=== PATIENT | male | born 1975 | race Caucasian/White ===

== ENCOUNTER 2023-04-24 19:04 | Emergency (ER) | payer MEDICARE, MEDICAID, SELFPAY ==
--- NOTE | 2023-04-24 19:08 | ED.ALLEREA ---
HPI - Allergic Reaction General Chief complaint: Eye Problems Stated complaint: Allergic Reaction Time Seen by Provider: 04/24/23 19:08 Source: patient Mode of arrival: ambulatory Limitations: no limitations History of Present Illness HPI narrative: 48-year-old male with a history of bipolar disorder, personality disorder, PTSD, constipation with a recurrent left periorbital inflammation since age 14 was recently started on Keflex for right leg cellulitis. The patient has been on Keflex since the 9th of this month. The patient presents to the ER with - left periorbital swelling. The periorbital swelling has completely covered the palpebral fissure. the patient has had this off and on since he was age 14. The patient thought that this might be an allergic reaction to Keflex. The patient does not have any rash or itching in any other part of the body. -- right lower leg cellulitis is improving patient has atopy and has allergic bronchitis and allergic rhinitis. MD complaint: other ( Left periorbital swelling along with rash in the periorbital region and on the nose) Onset (ago): unknown ( unsure when it started.) Symptoms: rash and facial swelling Severity: mild Treatment prior to arrival: none Review of Systems Review of Systems: All systems reviewed & are unremarkable except as noted in HPI and below Constitutional: Constitutional: Reports as per HPI and Reports no additional constitutional complaints Eyes: Eyes: Reports as per HPI and Reports no additional eye complaints Comments: Left periorbital swelling with rash on eyelids and the nose ENT: Reports system reviewed and no additional complaints, except as documented and Reports as per HPI Cardiovascular: Cardiovascular: Reports as per HPI and Reports no additional cardiovascular complaints Respiratory: Respiratory: Reports as per HPI and Reports no additional respiratory complaints Gastrointestinal: Gastrointestinal: Reports as per HPI and Reports no additional gastrointestinal complaints Genitourinary: Genitourinary: Reports no additional male genitourinary complaints and Reports as per HPI Musculoskeletal: Musculoskeletal: Reports no additional musculoskeletal complaints and Reports as per HPI Integumentary/Breasts: Skin/Breast: Reports system reviewed and no additional complaints, except as docu and Reports as per HPI Comments: rash in the left periorbital region and nose. Rash is not noted elsewhere. Neurologic: Reports system reviewed and no additional complaints, except as documented and Reports as per HPI Psychiatric: Psychiatric: Reports no additional psychiatric complaints and Reports as per HPI Endocrine: Endocrine: Reports no additional endocrine complaints and Reports as per HPI Hematologic/Lymphatic: Hematologic/Lymphatic: Reports no additional hematologic/lymphatic complaints and Reports as per HPI Allergic/Immunologic: Allergic/Immunologic: Reports no additional allergic/immunologic complaints and Reports as per HPI [facility] Past Medical History Medical History (Updated 04/24/23 @ 20:14 by Guillermo Cardenas MD) Bipolar 1 disorder Periorbital swelling Personality disorder PTSD (post-traumatic stress disorder) Exam Const: Orientation/consciousness: confusion Limitations: altered mental status HENMT: Head: normal to inspection Ears: external ears normal Face/Nose/Sinus: Normal external nose present ( erythematous rash on the nose) Face and sinus: normal facial exam ( left cheek and left periorbital swelling) Mouth: Yes Normal oral and palatal mucosa present Throat: posterior oropharynx normal Eyes: Conjunctivae: conjunctivae normal Pupils: Equal, round and reactive pupils present EOM: EOMs intact bilaterally Direct Ophthalmoscopy: no photophobia Other: left periorbital swelling occluding the palpebral fissure the left eye does not have any conjunctival erythema. Anterior chamber is clear. Normal eye movements.
[2023-04-24 19:10] VITALS: BP 140/71; PULSE 68; RESP 18; TEMP 36.8; O2SAT 99
[2023-04-24] MEDS: TETRACAINE HCL 0.5% OPHTH SOLN 4 ML BTL 1 DROP LEFT EYE (19:20)
[2023-04-24] MEDS: DOXYCYCLINE HYCLATE 100 MG TABLET PO (21:34)
[2023-04-24] MEDS: diphenhydrAMINE HCl CAP 25 MG CAPSULE PO (21:35)
[2023-04-24] MEDS: Please add drug allergy info to patient profile. 1 EACH XX (21:35)
[2023-04-24] MEDS: methylPREDNISolone SOD SUCC 125 MG VIAL IM (21:35)
[2023-04-24 21:40] VITALS: BP 122/72; PULSE 66; RESP 16; TEMP 36.7; O2SAT 99
== END 2023-04-24 21:55 | disposition home or self-care (01) ==
PROVIDERS: Emergency Provider Internal Medicine Critical Care Medicine; PCP Family Medicine
DX: L03.116 Cellulitis of left lower limb (principal); L03.115 Cellulitis of right lower limb; R22.0 Localized swelling, mass and lump, head
CPT/HCPCS: 96372; 99283; A9270; J2930

== ENCOUNTER 2023-07-15 08:52 | Outpatient (CLI) | payer MEDICARE, SELFPAY | END 2023-07-15 08:53 | disposition home or self-care (01) | LOC: CHSLAB 08:55 | PROVIDERS: PCP Family Medicine; Visit Provider Family Medicine | DX: D50.9 Iron deficiency anemia, unspecified (principal) | CPT/HCPCS: 36415; 82272 ==

== ENCOUNTER 2023-07-16 08:49 | Outpatient (NON) | payer MEDICARE, SELFPAY | END 2023-07-16 08:50 | disposition home or self-care (01) | LOC: CHSLAB 08:51 | PROVIDERS: Visit Provider Family Medicine | DX: D50.9 Iron deficiency anemia, unspecified (principal) | CPT/HCPCS: 36415; 82272 ==

== ENCOUNTER 2023-07-17 08:28 | Outpatient (NON) | payer MEDICARE, SELFPAY ==
[2023-07-17 08:58] LABS: Appearance Urine Clear (Clear); Bilirubin Urine Negative (Negative); Blood Urine Negative (Negative); Color Urine Light Yellow (Yellow); Glucose Urine UA Negative (Negative); Ketones Urine Negative (Negative); Leukocyte Esterase Ur Negative (Negative); Nitrate Urine Negative (Negative); Protein Urine Negative (Negative); Urobilinogen Urine 0.2 mg/dL (0.2-1.0); pH Urine 5.5 (5.0-8.0)
[2023-07-17 09:02] LABS: Add Urine Microscopic? NO
[2023-07-17 09:05] LABS: Creatinine Urine 34.78 mg/dL (40-278)
[2023-07-17 09:17] LABS: MALB Creatinine Ratio 37.3 mg/g (0-30); Microalbumin Urine Random < 13.0 mg/L
== END 2023-07-17 08:29 | disposition home or self-care (01) ==
LOC: CHSLAB 08:29
PROVIDERS: Visit Provider Family Medicine
DX: D50.9 Iron deficiency anemia, unspecified (principal)
CPT/HCPCS: 36415; 81003; 82043; 82272

== ENCOUNTER 2023-08-31 07:15 | Outpatient (CLI) | payer MEDICARE, SELFPAY ==
[2023-08-31 08:01] LABS: Basophils Absolute Auto 0.01 K/mm3 (0.00-0.10); Basophils Percent Auto 0.2 % (0.0-1.0); Hematocrit 37.3 % (40.0-54.0); Hemoglobin 11.9 g/dL (14.0-18.0); Immature Granulocyte Absolute 0.06 K/mm3 (0.00-0.00); Immature Granulocyte Percent A 1.1 % (0.0-0.0); Lymphocytes Absolute Auto 0.74 K/mm3 (1.10-4.50); Lymphocytes Percent Auto 13.9 % (18.0-42.0); Mean Corpuscular HGB Conc 31.9 g/dL (32-36); Mean Corpuscular Hemoglobin 25.6 pg (27.0-31.0); Mean Corpuscular Volume 80.4 fL (78.0-102.0); Mean Platelet Volume 12.2 fl (8.7-11.0); Monocytes Absolute Auto 0.33 K/mm3 (0.10-0.90); Monocytes Percent Auto 6.2 % (2.0-11.0); Neutrophils Absolute Auto 4.17 K/mm3 (1.70-7.20); Neutrophils Percent Auto 78.6 % (50.0-70.0); Platelet Count Result 103 K/mm3 (150-420); Red Blood Count 4.64 M/mm3 (4.70-6.10); Red Cell Distribution Width 15.2 % (11.6-14.4); White Blood Count 5.3 K/mm3 (4.8-10.8)
[2023-08-31 08:19] LABS: Iron 58 ug/dL (65-175); Percent Iron Saturation 24 % (12-57)
== END 2023-08-31 07:16 | disposition home or self-care (01) ==
LOC: CHSLAB 07:20
PROVIDERS: PCP Family Medicine; Visit Provider Family Medicine
DX: D50.9 Iron deficiency anemia, unspecified (principal)
CPT/HCPCS: 36415; 83540; 83550; 85025

== ENCOUNTER 2024-06-08 11:05 | Outpatient (CLI) | payer MEDICARE, MEDICAID, SELFPAY ==
--- NOTE | ~2024-06-08 | XR_ITS ---
XR foot LT min 3V Ordering provider: Reggie Jones MD History: . KICKED BEDPOST X1WK AGO,PAIN THRU 1ST,H/O MRSA X2YR AGO TOP . Comparison: None. FINDINGS: BONES: Erosive area seen in the distal metaphysis of the proximal phalanx of the big toe. Possibility of osteomyelitis or gout is marked excluded. Cystic area also seen in the proximal metaphysis of the proximal phalanx of the middle toe. Erosive changes also seen in the distal phalanx of the little to e. Possible effusion in the first interphalangeal joint is not noted. JOINT SPACES: Normal. No tarsal coalition. SOFT TISSUES: Normal. IMPRESSION: No definite acute osseous abnormality left foot. Multiple erosive changes which is highly suggestive of gout. Clinical correlation and further evaluat ion advised. Reviewed, dictated and finalized at location A. CAL STORE MANAGER IMPRESSION: No definite acute osseous abnormality left foot. Multiple erosive changes which is highly suggestive of gout. Clinical correlati on and further evaluation advised.
== END 2024-06-08 11:06 | disposition home or self-care (01) ==
LOC: CHSIMG 11:06
PROVIDERS: PCP Family Medicine; Visit Provider Family Medicine
DX: M79.675 Pain in left toe(s) (principal); M89.9 Disorder of bone, unspecified
CPT/HCPCS: 73630

== ENCOUNTER 2024-06-26 09:24 | Outpatient (CLI) | payer MEDICARE, MEDICAID, SELFPAY ==
[2024-06-28 03:23] LABS: Hepatitis A Antibody IgM NON-REACTIVE (NON-REACTIVE); Hepatitis B Core Antibody NON-REACTIVE (NON-REACTIVE)
[2024-06-28 03:38] LABS: Hepatitis B Surface Antigen NON-REACTIVE (NON-REACTIVE); Hepatitis C Virus Antibody NON-REACTIVE (NON-REACTIVE)
== END 2024-06-26 09:25 | disposition home or self-care (01) ==
LOC: CHSLAB 09:27
PROVIDERS: PCP Family Medicine; Visit Provider Family Medicine
DX: D75.9 Disease of blood and blood-forming organs, unspecified (principal); R10.9 Unspecified abdominal pain
CPT/HCPCS: 36415; 80074

== ENCOUNTER 2024-07-15 11:30 | Outpatient (CLI) | payer MEDICARE, MEDICAID, SELFPAY ==
--- NOTE | ~2024-07-15 | XR_ITS ---
HISTORY: unspec. open wound left foot base of great toe COMPARISON: 06/08/2024 TECHNIQUE: 3 views of the left foot were performed. FINDINGS: No acute fracture or dislocation is appreciated. Erosion and ankylosis within the proximal, mid and distal phalanx of the great toe. Query prior injury. The cortex of the bones of the great toe are maintained. Periarticular osteopenia suggesting osteoarthritis. Soft tissue swelling along the dorsum and plantar surface of the forefoot. The base of the fifth metatarsal is intact. No calcaneal spur is noted. IMPRESSION: Erosion and ankylosis within the proximal, mid and distal phalanx of the great toe for w hich prior injury is suspected. Soft tissue swelling, without underlying fracture. Reviewed, dictated and finalized at location A. LING TEACHER IMPRESSION: Erosion and ankylosis within the proximal, mid and distal phalanx of the great toe for which prior injury is suspected. Soft tissue swelling, without underlying fracture.
[2024-07-15 12:01] LABS: Basophils Absolute Auto 0.01 K/mm3 (0.00-0.10); Basophils Percent Auto 0.1 % (0.0-1.0); Eosinophils Absolute Auto 0.09 K/mm3 (0.02-0.50); Eosinophils Percent Auto 1.1 % (1.0-6.0); Hematocrit 39.4 % (40.0-54.0); Hemoglobin 12.7 g/dL (14.0-18.0); Immature Granulocyte Absolute 0.06 K/mm3 (0.00-0.00); Immature Granulocyte Percent A 0.7 % (0.0-0.0); Lymphocytes Absolute Auto 1.23 K/mm3 (1.10-4.50); Lymphocytes Percent Auto 14.7 % (18.0-42.0); Mean Corpuscular HGB Conc 32.2 g/dL (32-36); Mean Corpuscular Hemoglobin 27.2 pg (27.0-31.0); Mean Corpuscular Volume 84.4 fL (78.0-102.0); Mean Platelet Volume 11.2 fl (8.7-11.0); Monocytes Absolute Auto 0.47 K/mm3 (0.10-0.90); Monocytes Percent Auto 5.6 % (2.0-11.0); Neutrophils Absolute Auto 6.53 K/mm3 (1.70-7.20); Neutrophils Percent Auto 77.8 % (50.0-70.0); Platelet Count Result 104 K/mm3 (150-420); Red Blood Count 4.67 M/mm3 (4.70-6.10); Red Cell Distribution Width 15.3 % (11.6-14.4); White Blood Count 8.4 K/mm3 (4.8-10.8)
[2024-07-15 12:36] LABS: Alanine Aminotransferase 12 U/L (16-63); Albumin Level 3.8 g/dL (3.4-5.0); Alkaline Phosphatase 107 U/L (46-116); Anion Gap 8 mmol/L (4-12); Aspartate Amino Transferase 13 U/L (15-37); Bilirubin,Total 0.9 mg/dL (0.00-1.00); Blood Urea Nitrogen 13 mg/dL (7-18); Calcium 6.5 mg/dL (8.5-10.1); Carbon Dioxide 28 mmol/L (21-32); Chloride 104 mmol/L (98-108); Estimated Glomerular Filt Rate > 60; Glucose 107 mg/dL (70-99); Osmolality Calculated 290 mOsm/kg (285-295); Potassium 3.7 mmol/L (3.5-5.1); Sodium 140 mmol/L (136-145); Total Protein 7.4 g/dL (6.4-8.2)
--- OUTSIDE RECORDS SUMMARY | 2024-07-15 13:05 | XMS_ITS | Clinical Summary ---
Author Organization [facility] Address [facility] [place] [address] Care Team Providers Care Synchronous Motor Assembler Name Role Phone Alex Andino MD Primary Care Provider [phone] Social History Tobacco Use Types Packs/Day Years Used Date Smoking Tobacco: Never Assessed Sex and Gender Information Value Date Recorded Sex Assigned at Not on file Legal Sex Male 8:01 AM CDT Gender Identity Not on file Sexual Orientation Not on file Plan of Treatment Health Maintenance Due Date Last Done Comments Colorectal Cancer Screening Colonoscopy (10 Years) 1975 Annual Physical 1978 Hepatitis C 1993 Hepatitis B Vaccines (1 of 3 - 19+ 3-dose series) 1994 DTaP, Tdap and Td Vaccines (2 - Td or Tdap) 02/08/2020 02/07/2010 COVID-19 Vaccine ( season) 2024 01/05/2022, 06/12/2021, 07/14/2020, Additional history exists Influenza Adult (#1) 2024 04/18/2023, 02/28/2023, 03/10/2021, Additional history exists Pneumococcal Vaccine: Pediatrics (0 to 5 Years) and At-Risk Patients (6 to 64 Years) Aged Out 02/28/2023 No longer eligible based on patient's age to complete this topic Meningococcal B Vaccine Aged Out No l onger eligible based on patient's age to complete this topic Meningococcal Vaccine Aged Out No keena hardeep eligible based on patient's age to complete this topic RSV Immunizations Under 20 Months Aged Out No longer eligible based on patient's age to complete this topic Insurance MEDICARE MEDICAID Care Teams Synchronous Motor Assembler Relationship Specialty Start Date End Date Alex Andino MD [address] [place] [id number] PCP - General FAMILY PRACTICE 09/02/23
--- OUTSIDE RECORDS SUMMARY | 2024-07-15 13:05 | XMS_ITS | Continuity of Care Document ---
Author Organization [facility] Address [address] [place] [address] Phone Care Team Providers Care Demurrage Agent Name Role Phone Federico Salazar MD Unavailable Unavailable Allergies, Adverse Reactions, Alerts Substance Reaction Status Criticality bee venom protein (honey bee) Active No Information trimethoprim Active No Information sulfamethoxazole Active No Informat ion PENICILLIN Active No Information Medications Medication Instructions Dosage Effective Dates (start - stop) Status Comments loratadine 10 mg tablet take 1 tablet by oral route every day 10 MG - Active fluticasone propionate 50 mcg/actuation nasal spray,suspension spray 2 spray by intranasal route 1-2 times every day in each nostril as needed - Active levothyroxine 200 mcg tablet take 1 tablet by oral route every day 200 MCG - Active FOLIC ACID 1MG...AUTO GIVE ONE TABLET BY MOUTH DAILY - Active Stool Softener 100 mg tablet take 1 tablet by oral route every day at bedtime as needed 100 MG - Active VITAMIN D [id number]... GIVE 1 CAPSULE BY MOUTH WEEKLY (EVERY 7 DAYS) - Active buspirone 10 mg tablet take 1 tablet by oral route 2 times every day 10 MG - Active aripiprazole 10 mg tablet take 1 tablet by oral route every day 10 MG - Active citalopram 20 mg tablet take 1 tablet by oral route every day 20 MG - Active B-12 Compliance 1,000 mcg/mL injection kit inject 1 milliliter by subcutaneous route every month on the - Active Ciprodex 0.3 %-0.1 % ear drops,suspension instill 4 drop by otic route 2 times every day for 7 days into affected ear(s) as needed - Active mupirocin 2 % topical ointment apply to the affected area BID PRN as needed - Active Procedures Procedure Date DOMICIL/R-HOME VISIT [place] OFFICE/OUTPATIENT VISIT, EST OFFICE/OUTPATIENT VISIT, EST Advance Directives Directive Yes / No Effective Date File Name No Information Encounters Encounter Description Practice Location Reason(s) For Visit Diagnoses Date Provider Providers Copied on Encounter DOMICIL/R-HO ME VISIT EST [facility], [address] [place] [address], [facility], tel: [phone] [facility] HPI (chief complaint) Type 2 diabetes mellitus without complicationsHypo thyroidism, unspecifiedDefici ency of other specified B group vitaminsSchizophr enia, unspecifiedMajor depressive disorder, recurrent, unspecified 2 Marie Caballero. [address] [place] [address], [facility], . tel: [phone] OFFICE/OUTPA TIENT VISIT, [facility], [address] [place] [address], [facility], tel: [phone] [facility] PRE-OP PHYSICAL (chief complaint) HPI (chief complaint) Benign neoplasm of other specified sitesType 2 diabetes mellitus without complications 2 Marie Caballero. [address] [place] [address], [facility], [place]. tel: [phone] [facility], [address] [place] [address], [facility], [place] tel: [phone] [place] No Information 2 Marie Caballero. [address] [place] [address], [facility], [place]. tel: [phone] OFFICE/OUTPA TIENT VISIT, [facility], [address] [place] [address], [facility], [place] tel: [phone] [place] knot on R foot (chief complaint) HPI (chief complaint) Tinea unguiumBenign neoplasm of other specified sites 2 Marie Caballero. [address] [place] [address], [facility], [place]. tel: [phone] [facility], [address] [place] [address], [facility], tel:[phone] [place] [address] No Information 2 Marie Caballero. [address] [place] [address], [facility], . tel: [phone] [facility], [address] [place] [address], [facility], tel:[phone] [place] [address] No Information 2 Poncho Herringl. [address] [place], [place], [facility], [place]. tel: [phone] [facility], [address] [place] [address], [facility], tel:[phone] [place] [address] No Information 2 Marie Caballero. [address] [place] [address], [facility], [place]. tel: [phone] [facility], [address] [place] [address], [facility], [place] tel:[phone] [place] [address] No Information 2 Marie Caballero. [address] [place] [address], [facility], [place]. tel: [phone] [facility], [address] [place] [address], [facility], tel:[phone] [place] [address] 6 Month Follow Up at [facility] care (chief complaint) Hypothyroidism, unspecifiedType 2 diabetes mellitus without complicationsDefi ciency of other specified B group vitaminsSchizophr enia, unspecifiedMajor depressive disorder, recurrent, unspecified 2 Marie Caballero. [address] [place] [address], [facility], [place]. tel: [phone] [facility], [address] [place] [address], [facility], tel:[phone] [place] [address] No Information 1 Marie Caballero. [address] [place] [address], [facility], . tel: [phone] [facility], [address] [place] [address], [facility], tel:[phone] [place] No Information Marie Caballero. [address] [place] [address], [facility], . tel: [phone] Family History Family Member Type Diagnosis Age At Onset No Information Immunizations Vaccine Date Status Comments SARS-COV-2 (COVID-19) vaccin e, mRNA, spike protein, LNP, preservative free, 100 mcg/0.5mL dose administered Source: Source Unspe cified SARS-COV-2 (COVID-19) vaccin e, mRNA, spike protein, LNP, preservative free, 100 mcg/0.5mL dose administered Source: Source Unspe cified Influenza injectable quad administered Source: Source Unspe cified Payers Payer name Insurance type Covered democrat ID Authoriza tion(s) No Information Social History Type Description Quantity Date Captured Comments Alcohol Use Details Unknown Caffeine Use Details Unknown Tobacco Use Status No Information Smoking Status No Information Sex Male Vital Signs Date / Time: Height Weight BMI Pulse Rate Blood Pressure Temperature Respiratory Rate Body Surface Area Head Circumference Head Circ. Percentile Wt./Juancarlos. Percentile BMI percentile Pulse Ox Inhaled Ox 12:31 PM 83.461 kg (184.00 lbs) 80 /min 126/64 mm[Hg] 98.60 F 16 /min Chief Complaint And Reason For Visit From encounter dated '12/28/2021 11:15'. HPI (chief complaint). Description: No new concerns or complaints from patient or staff.Eating and sleeping well.Medication list reviewedFoot is doing well. No pain just some itching. He is to have stitches out in 1 week. No drainage. Reason For Referral Reason For Referral No Information Plan Of Treatment Date Type Action Status Referral Referred To: Lizbeth Ramos [address] [place], [place], [phone] Ordered: Referrals: Podiatric Medicine & Surgery Service Providers : Medical And Health Services Manager. Lizbeth Ramos. Evaluate and treat Appointment date/timeframe: 12/01/2021 ordered Future Order: Lab Order CMP ([id number]), Se nt on: Sent Future Order: Lab Order CBC W/ D iff ([id number]), Sent on: Sent Future Order: Lab Order A1C ([id number]), Se nt on: Sent Future Order: Lab Order LIPID PA DAVION ([id number]), Sent on: Sent Future Order: Lab Order VITAMIN D (25) ([id number]), Sent on: Sent Future Order: Lab Order TSH REFL EX FREE T4 ([id number]), Sent on: Sent History Of Present Illness Encounter Date Complaint History Of Prese nt Illness HPI No new concerns or complaints from patient or staff.Eating and sleeping well.Medication list reviewedFoot is doing well. No pain just some itching. He is to have stitches out in 1 week. No drainage. PRE-OP PHYSICAL Patient presents to clinic for pre-op physical. HPI Patient to have surgery on his foot to remove the mass and biopsy it. Surgery has not been scheduled yet.Patient has no new concerns or complaints today. No fevers or chills. No chest pain or shortness of breath. No cough or sputum production. No urinary complaints.Diabetes been under good control. His last A1c was 4.9% in June 2020. HPI Patient is here to check an area on his right foot. He has chronic problems with both of his feet. He has terrible looking toenails and the nail on the right great toe is broken. He stated his feet sweat a lot and he has peeling skin on the soles of both feet.He is recently noticed a fluid-filled mass on the outer aspect of his right foot. There is been no redness or warmth. No drainage. No tenderness. He has noticed his shoes will rub in that area. [facility] staff states that he changed his shoes frequently. knot on R foot The symptoms beg an 2 weeks ago. Patient states that he noticed a knot on the side of his R foot. Describes that the area rubs against the inside of his shoe, denies any pain to the area. Denies any use of medication for the area. 6 Month Follow Up at [facility] car e Pt. is doing well.No new concerns or complaints by the patient or staffEating well. Sleeping well. Functional Status Date Functional Assessmen t No Information Instructions Date Instruction Additional Infor chandu Continue current med ications and treatment plan Related to Type 2 diabetes mellitus without complications Patient is medically cleared for surgery Related to Benign neoplasm of other specified sites Will refer to Podiatry in [place] Related to Tinea unguium Continue current med icationsLabs: CMP, CBC, hgbA1c, TSH, Vit D, B12, LipidsFollow up 6 months, sooner as neededFollow up with mental health services as scheduled Related to Hypothyroidism, unspecified Assessments Type Assessment Date assessment Type 2 diabetes mellitus without complications assessment Hypothyroidism, unspecified assessment Deficiency of other specified B group vitamins assessment Schizophrenia, unspecified assessment Major depressive disorder, recur rent, unspecified Patient Care Teams Name Effective Dates (start - stop) Status Members No Information
[2024-07-15 13:06] LABS: Erythrocyte Sedimentation Rate 43 mm/hr (0-15)
== END 2024-07-15 11:31 | disposition home or self-care (01) ==
PROVIDERS: PCP Family Medicine; Visit Provider Family Medicine
DX: E83.51 Hypocalcemia (principal); S91.302A Unspecified open wound, left foot, initial encounter; E11.9 Type 2 diabetes mellitus without complications; M79.89 Other specified soft tissue disorders
CPT/HCPCS: 36415; 73630; 80053; 82306; 82330; 85025; 85652

== ENCOUNTER 2024-07-16 08:30 | Outpatient (CLI) | payer MEDICARE, MEDICAID, SELFPAY ==
--- NOTE | ~2024-07-16 | US_ITS ---
US arterial ankle brachial ind INDICATION: Peripheral vascular disease TECHNIQUE: Segmental pressures and plethysmographic and Doppler waveforms of the brachial and lower e xtremity arteries were obtained. COMPARISON: None. FINDINGS: Right and left brachial artery pressures of 1:15 mm Hg and 110 mm Hg, respectively, are concordant (n ormal difference <= 30 mmHg). The right ankle-brachial index (CORNELIO) is 1.48 (normal >= 0.9-1.0). The right great toe-brachial index (TBI) is 1 (normal >= 0.60). The left CORNELIO is 1.52. The left TBI is 1.2. IMPRESSION: 1. Normal bilateral ankle-brachial indices. Reviewed, dictated and finalized at location B. T SUPERVISOR
--- OUTSIDE RECORDS SUMMARY | 2024-07-16 08:36 | XMS_ITS | Continuity of Care Document ---
Author Organization [facility] Address [address] [place] [address] Phone Care Team Providers Care Cafe Manager Name Role Phone Federico Salazar MD Unavailable [...] needed 100 MG - Active VITAMIN D [id number]... GIVE 1 CAPSULE BY MOUTH WEEKLY (EVERY [...] Copied on Encounter DOMICIL/R-HO ME VISIT EST [facility], [address] [place] [address], [facility], tel: [phone] [facility] HPI (chief complaint) Type 2 diabetes mellitus without complicationsHypo thyroidism, unspecifiedDefici ency of other specified B group vitaminsSchizophr enia, unspecifiedMajor depressive disorder, recurrent, unspecified 2 Marie Caballero. [address] [place] [address], [facility], . tel: [phone] OFFICE/OUTPA TIENT VISIT, [facility], [address] [place] [address], [facility], tel: [phone] [facility] PRE-OP PHYSICAL (chief complaint) HPI (chief complaint) Benign neoplasm of other specified sitesType 2 diabetes mellitus without complications 2 Marie Caballero. [address] [place] [address], [facility], [place]. tel: [phone] [facility], [address] [place] [address], [facility], [place] tel: [phone] [place] No Information 2 Marie Caballero. [address] [place] [address], [facility], [place]. tel: [phone] OFFICE/OUTPA TIENT VISIT, [facility], [address] [place] [address], [facility], [place] tel: [phone] [place] knot on R foot (chief complaint) HPI (chief complaint) Tinea unguiumBenign neoplasm of other specified sites 2 Marie Caballero. [address] [place] [address], [facility], [place]. tel: [phone] [facility], [address] [place] [address], [facility], tel:[phone] [place] [address] No Information 2 Marie Caballero. [address] [place] [address], [facility], . tel: [phone] [facility], [address] [place] [address], [facility], tel:[phone] [place] [address] No Information 2 Poncho Herringl. [address] [place], [place], [facility], [place]. tel: [phone] [facility], [address] [place] [address], [facility], tel:[phone] [place] [address] No Information 2 Marie Caballero. [address] [place] [address], [facility], [place]. tel: [phone] [facility], [address] [place] [address], [facility], [place] tel:[phone] [place] [address] No Information 2 Marie Caballero. [address] [place] [address], [facility], [place]. tel: [phone] [facility], [address] [place] [address], [facility], tel:[phone] [place] [address] 6 Month Follow Up at [facility] care (chief complaint) Hypothyroidism, unspecifiedType 2 diabetes mellitus without complicationsDefi ciency of other specified B group vitaminsSchizophr enia, unspecifiedMajor depressive disorder, recurrent, unspecified 2 Marie Caballero. [address] [place] [address], [facility], [place]. tel: [phone] [facility], [address] [place] [address], [facility], tel:[phone] [place] [address] No Information 1 Marie Caballero. [address] [place] [address], [facility], . tel: [phone] [facility], [address] [place] [address], [facility], tel:[phone] [place] No Information Marie Caballero. [address] [place] [address], [facility], . tel: [phone] Family History Family Member Type Diagnosis Age [...] Status Referral Referred To: Lizbeth Ramos [address] [place], [place], [phone] Ordered: Referrals: Podiatric Medicine & Surgery Service Providers : Negative Cleaner. Lizbeth Ramos. Evaluate and treat Appointment date/timeframe: 12/01/2021 ordered Future Order: Lab Order CMP ([id number]), Se nt on: Sent Future Order: Lab Order CBC W/ D iff ([id number]), Sent on: Sent Future Order: Lab Order A1C ([id number]), Se nt on: Sent Future Order: Lab Order LIPID PA DAVION ([id number]), Sent on: Sent Future Order: Lab Order VITAMIN D (25) ([id number]), Sent on: Sent Future Order: Lab Order TSH REFL EX FREE T4 ([id number]), Sent on: Sent History Of Present Illness [...] the area. 6 Month Follow Up at [facility] car e Pt. is doing well.No new [...] specified sites Will refer to Podiatry in [place] Related to Tinea unguium Continue current med [...]
--- OUTSIDE RECORDS SUMMARY | 2024-07-16 08:36 | XMS_ITS | Clinical Summary ---
Author Organization [facility] Address [facility] [place] [address] Care Team Providers Care Restaurant General Manager Name Role Phone Alex Andino MD Primary Care Provider [phone] Social History Tobacco Use Types Packs/Day Years Used Date Smoking Tobacco: Never Assessed Sex and Gender Information Value Date Recorded Sex Assigned at Male 07/15/2024 3:35 PM MEDICAL ADMINISTRATIVE Legal Sex Male 8:01 AM CDT Gender Identity Not on file Sexual Orientation Not on file Plan of Treatment Upcoming Encounters Date Type Department Care Team (Late st Contact Info) Description 07/20/2024 2:45 PM MEDICAL ADMINISTRATIVE Appointment [facility] [address] [place] [address] Carlene Lofton, [facility] [address] [place] [address] Health Maintenance Due Date Last Done Comments [...] this topic Insurance MEDICARE MEDICAID Care Teams Restaurant General Manager Relationship Specialty Start Date End Date Alex Andino MD [address] [place] [id number] PCP - General FAMILY PRACTICE 09/02/23
== END 2024-07-16 08:31 | disposition home or self-care (01) ==
LOC: CHSIMG 08:32
PROVIDERS: PCP Family Medicine; Visit Provider Family Medicine
DX: I73.9 Peripheral vascular disease, unspecified (principal); S91.302A Unspecified open wound, left foot, initial encounter
CPT/HCPCS: 93922

== ENCOUNTER 2024-11-29 10:18 | Emergency (ER) | payer MEDICARE, MEDICAID, SELFPAY ==
--- NOTE | ~2024-11-29 | XR_ITS ---
Left foot Technique: AP, oblique, and lateral views were obtained. Clinical History: Injury, diabetic wound COMPARISON: 07/15/2024 Findings: No acute fracture or dislocation is seen. Status post interval amputation of the second dig it at the level of the midportion of the middle phalanx. There is dorsal dislocation at the fourth PI P joint. No definite acute fracture seen. Stable chronic changes at the first toe interphalangeal veronica nt. Soft tissues are unremarkable. Impression: Dorsal dislocation of the fourth PIP joint. No fracture evident. Interval amputation of the second digit at the level of the middle portion of the middle phalanx, as detailed above. Stable chronic changes about the first toe interphalangeal joint. Reviewed, dictated and finalized at location M. Impression: Dorsal dislocation of the fourth PIP joint. No fracture evident. Interval amputation of the second digit at the level of the middle portion of t he middle phalanx, as detailed above. Stable chronic changes about the first toe interphalangeal joint.
[2024-11-29 10:19] VITALS: BP 145/92; PULSE 80; RESP 18; TEMP 36.6; O2SAT 97
--- NOTE | 2024-11-29 10:28 | ED_ITS ---
HPI - General Adult General Chief complaint: Extremity Injury, Lower Stated complaint: left foot pain Time Seen by Provider: 11/29/24 10:19 History of Present Illness HPI narrative: Ramon is a 49m with a PMH of diabetes that presented to the ED from [facility]. He Rolled his ankle and h as pain on the medial malleoleus. He also has had a non-healing wound on the medial side of the 4th toe. No fevers, chills, N/V or systemic symptoms. Related Data Allergies Allergy/AdvReac Type Severity Reaction Status Date / Time bee venom protein (honey bee) Allergy Unknown Verified 11/29/24 10:33 Penicillins Allergy Unknown Verified 11/29/24 10:33 Sulfa (Sulfonamide Allergy Unknown Verified 11/29/24 10:33 Antibiotics) sulfamethoxazole (From Allergy Unknown Verified 11/29/24 10:33 Bactrim) trimethoprim (From Bactrim) Allergy Unknown Verified 11/29/24 10:33 Review of Systems Review of Systems: All systems reviewed & are unremarkable except as noted in HPI and below PMFSH Past Medical History Medical History Periorbital swelling PTSD (post-traumatic stress disorder) Personality disorder Bipolar 1 disorder Exam Const: General: cooperative, healthy appearing, comfortable, no acute distress, well developed, alert, awake and Physically active Orientation/consciousness: oriented to person, oriented to place and oriented to time HENMT: Head: normal to inspection, normocephalic and atraumatic Ears: hearing grossly normal bilaterally and external ears normal Face/Nose/Sinus: Normal external nose present Eyes: General: appearance normal, both eyes and all related structures Periorbital: periorbital findings normal Sclera: sclerae normal Pupils: Equal, round and reactive pupils present Neck: Neck: normal visual inspection Chest: Chest palpation & inspection: normal inspection of the chest Resp: Effort & Inspection: normal respiratory effort, able to speak in complete sentences and no respiratory distress Cardio: Jugular venous distension: no JVD Skin: General skin exam: normal color and no rashes or lesions noted Neuro: General: oriented to person, oriented to place and oriented to time Cranial nerves: Yes Equal, round and reactive pupils present Extrem: General: normal to inspection Other: left ankle was swollen and TTP on the medial side. 1cm round wound on the medial side of the 4th digit Course Course Emergency Course: Given Tylenol for pain and ordered radiographs Technique: AP, oblique, and lateral views were obtained. Clinical History: Injury, diabetic wound COMPARISON: 07/15/2024 Findings: No acute fracture or dislocation is seen. Status post interval amputation of the second digit at the level of the midportion of the middle phalanx. There is dorsal dislocation at the fourth PIP joint. No definite acute fracture seen. Stable chronic changes at the first toe interphalangeal joint. Soft tissues are unremarkable. Impression: Dorsal dislocation of the fourth PIP joint. No fracture evident. Interval amputation of the second digit at the level of the middle portion of the middle phalanx, as detailed above. Stable chronic changes about the first toe interphalangeal joint. After the radiograph results I discussed the dislocated toe. He states that it has always been that way. I asked him if he wanted anything done and he refused treatment. Vital Signs Vital signs: Vital Signs Temperature 97.9 F 11/29/24 10:19 Pulse Rate 80 11/29/24 10:19 Respiratory Rate 18 11/29/24 10:19 Blood Pressure 145/92 H 11/29/24 10:19 Pulse Oximetry 97 11/29/24 10:19 Oxygen Delivery Room Air 11/29/24 10:19 Temperature 97.9 F 11/29/24 10:19 Pulse Rate 80 11/29/24 10:19 Respiratory Rate 18 11/29/24 10:19 Blood Pressure 145/92 H 11/29/24 10:19 Pulse Oximetry 97 11/29/24 10:19 Oxygen Delivery Room Air 11/29/24 10:19 Medical Decision Making Vital Signs Vital Signs: Vital Signs Temperature 97.9 F 11/29/24 10:19 Pulse Rate 80 11/29/24 10:19 Respiratory Rate 18 11/29/24 10:19 Blood Pressure 145/92 H 11/29/24 10:19 Pulse Oximetry 97 11/29/24 10:19 Oxygen Delivery Room Air 11/29/24 10:19 Temperature 97.9 F 11/29/24 10:19 Pulse Rate 80 11/29/24 10:19 Respiratory Rate 18 11/29/24 10:19 Blood Pressure 145/92 H 11/29/24 10:19 Pulse Oximetry 97 11/29/24 10:19 Oxygen Delivery Room Air 11/29/24 10:19 Discharge Plan Discharge Clinical Impression: Ankle sprain and strain Patient Disposition: Home Condition: Stable Instructions: Ankle Sprain (ED) Patient Language: Rwandan Prescriptions: No Action doxycycline hyclate 100 mg capsule 100 mg PO BID Qty: 14 0RF prednisone 20 mg tablet 20 mg PO BID Qty: 10 0RF prednisone 20 mg tablet 20 mg PO BID Qty: 10 0RF doxycycline hyclate 100 mg tablet 100 mg PO BID Qty: 14 0RF Follow-up/Referrals: Reggie Jones MD [Primary Care Provider] -
[2024-11-29] MEDS: ACETAMINOPHEN 500 MG TABLET 1000 MG PO (10:37)
[2024-11-29 11:37] VITALS: BP 139/70; PULSE 79; RESP 16; O2SAT 98
== END 2024-11-29 11:37 | disposition home or self-care (01) ==
PROVIDERS: Emergency Provider Family Medicine; PCP Family Medicine
DX: S93.402A Sprain of unspecified ligament of left ankle, initial encounter (principal); S96.912A Strain of unspecified muscle and tendon at ankle and foot level, left foot, initial encounter; E11.9 Type 2 diabetes mellitus without complications; X50.0XXA Overexertion from strenuous movement or load, initial encounter
CPT/HCPCS: 73630; 99283; A9270

== ENCOUNTER 2024-12-28 11:33 | Emergency (ER) | payer MEDICARE, MEDICAID, SELFPAY ==
--- NOTE | ~2024-12-28 | XR_ITS ---
EXAM/ PROCEDURE: XR foot LT min 3V - 12/28/2024 11:50 CDT HISTORY: 49 years old Male with infection/dm2 COMPARISON: 11/29/2024 TECHNIQUE: Four view(s) FINDINGS/ IMPRESSION: Multiple areas of cortical destruction in the fourth proximal and middle phalanx which can be seen in osteomyelitis. Clinical correlation is recommended. No acute fracture or dislocation seen. Status post amputation of second digit at the level of midport ion of middle phalanx. 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 Chronic degenerative change s. Reviewed, dictated and finalized at location A.
[2024-12-28 11:33] VITALS: BP 147/80; PULSE 89; RESP 18; TEMP 36.6; O2SAT 97
--- OUTSIDE RECORDS SUMMARY | 2024-12-28 11:42 | XMS_ITS | Clinical Summary ---
Author Organization [facility] [address] Address [address] [place] [address] Care Team Providers Care Optometry Professor Name Role Phone Reggie Jones MD Primary Care Provide r Demarcus Phan DPM Unavailable [phone] Allergies Active Allergy Reactions Criticality Noted Date Comments Sulfamethoxazole-Trimethoprim Hives Medium 2024 Penicillins Hives Medium 08/20/2024 Sulfa Hives Medium 08/20/2024 Venom-Honey Bee Unknown 01/03/2016 Medications ARIPiprazole (ABILIFY) 10 mg tablet Take 1 tablet (10 mg total) by mouth daily 08/03/19 25 Active citalopram (CeleXA) 20 mg tablet Take 1 tablet (20 mg total) by mouth daily 08/03/19 25 Active levothyroxine (SYNTHROID) 175 mcg tablet Take 1 tablet (175 mcg total) by mouth daily 08/03/19 25 Active terbinafine (LamiSIL) 250 mg tablet Take 1 tablet (250 mg total) by mouth daily 08/03/19 25 Active busPIRone (BUSPAR) 10 mg tablet Take 1 tablet (10 mg total) by mouth 2 (two) times a day 08/03/19 25 Active fluticasone propionate (FLONASE) 50 mcg/actuation nasal spray Administer 1 spray into each nostril 2 (two) times a day 07/11/19 25 Active Nystop powder Apply 1 Application topically 2 (two) times a day 07/28/19 25 Active ferrous sulfate 325 mg (65 mg of elemental iron) tabletIndications :Iron Deficiency Anemia Take 1 tablet (65 mg of elemental iron total) by mouth daily with breakfast Active acetaminophen (TYLENOL) 325 mg tablet Take 2 tablets (650 mg total) by mouth every 6 (six) hours as needed for pain Active diphenhydrAMINE (Banophen) 25 mg capsule Take 1 tablet/capsule (25 mg total) by mouth every 6 (six) hours as needed for itching Active acetaminophen/gua ifenesin (CHEST CONGESTION ORAL) Take 10 mL by mouth every 6 (six) hours as needed (chest congestion) Active UNABLE TO FIND Take 1 each by mouth 4 (four) times a day as needed (cough) Med Name: Jourdan Coto Lemon Drops Active polyethylene glycol (MIRALAX) 17 gram packetIndications :constipation Take 1 packet (17 g total) by mouth as needed for constipation Active naphazoline HCl/pheniramine (VISINE-A OPHT) Administer 3 drops into affected eye(s) as needed (allergy relief) 3 drops in each eye 3 times a day as need for allergy relief Active bismuth subsalicylate (PEPTO-BISMOL) suspension Take 30 mL by mouth as needed for indigestion Take every 1/2-1 Hour as needed Active traMADoL (ULTRAM) 50 mg tablet Take 1 tablet (50 mg total) by mouth every 6 (six) hours as needed for pain 28 tablet 09/05/19 25 Active Additional Information Patient not taking.Reported on 09/24/2024 Active Problems Problem Noted Date Diagnosed Date Acute osteomyelitis of left ankle or foot 2024 Diabetic foot ulcer with osteomyelitis 5 Surgical History Surgery Date Site/Laterality Comments SPINE SURGERY Patients father stated patient had a lumbar back fusion over 20 yrs ago TOE SURGERY Medical History Medical History Date Comments Type 2 diabetes mellitus (HCC) Anemia Bipolar disorder (HCC) Personality disorder (HCC) PTSD (post-traumatic stress disorder) Chronic cutaneous venous stasis ulcer (HCC) lower right leg Constipation Hypothyroidism Schizoaffective disorder (HCC) Social History Tobacco Use Types Packs/Day Years Used Date Smoking Tobacco: Never Smokeless Tobacco: Never Tobacco Cessation:Counseling Given: Not Answered AUDIT-C Answer Date Recorded Q1: How often do you have a drink containing alcohol? Never 09/24/2024 Q2: How many drinks containi ng alcohol do you have on a typical day when you are drinking? Patient does not drink Q3: How often do you have si x or more drinks on one occasion? Never 09/24/2024 Personal Safety Answer Date Recorded Have you ever been in or are you currently in a harmful physical or emotional relationship or is someone making you feel afraid or unsafe? 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 Gender Identity Not on file Sexual Orientation Not on file Obstetrics History Last Filed Vital Signs Vital Sign Reading Time Taken Comments Blood Pressure 157/92 09/04/2024 2:09 PM CDT Pulse 68 09/04/2024 2:09 PM CDT Temperature 35.8 C (96.4 F) 09/04/2024 2:09 PM CDT Respiratory Rate 18 09/04/2024 2:09 PM CDT Oxygen Saturation 100% 09/04/2024 2:09 PM CDT Inhaled Oxygen Concentration - - Weight 108.4 kg (238 lb 15.7 oz) 2024 10:22 AM CDT Height 180.3 cm (5' 11) 09/04/2024 10: 22 AM CDT Body Mass Index 33.33 09/04/2024 10:22 AM CDT Plan of Treatment Health Maintenance Due Date Last Done Comments Albumin Creatinine Ratio, Urine 1975 Colon Cancer Screening-Colonoscopy 1975 Depression Screening 1975 Hemoglobin A1C 1975 Hepatitis C Screening 1975 eGFR 1975 Dilated Eye Exam 1975 Foot Exam 1975 Lipid Panel 1975 Hepatitis B Screening 1993 Regular Well Visit/Exam 18-64 1993 DTaP/Tdap/Td Vaccine (2 - Td or Tdap) 02/08/2020 02/07/2010 Covid-19 Vaccine (5 - 2023-2 5 season) 2024 01/05/2022, 06/12/2021, 07/14/2020, Additional history exists Pneumococcal vaccine <65 Completed 02/28/2023 Influenza Vaccine Completed 03/03/2024, , 02/28/2023, Additional history exists Insurance [employer] MEDICARE Advance Directives For more information, please contact: [phone] Documents on File Type Date Recorded Patient 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
--- OUTSIDE RECORDS SUMMARY | 2024-12-28 11:42 | XMS_ITS | Clinical Summary ---
Author Organization [facility] Address [address] [place] [address] Care Team Providers Care Consultant Intern Name Role Phone Alex Andino MD Primary Care Provider [phone] Encounters Date Type Department Care Team Description 11/11/2024 8:52 AM CDT - 11/11/2024 11:59 PM CDT Hospital Encounter 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 Sex Male 8:01 AM CDT Gender Identity Not on file Sexual Orientation Not on file Plan of Treatment Health Maintenance Due Date Last Done Comments Colorectal Cancer Screening Colonoscopy (10 Years) 1975 Kidney Health Evaluation 1975 Hemoglobin A1C 1975 Lipid Panel 1975 Annual Physical 1978 Diabetes: Retinopathy Eye Exam 1993 Hepatitis C 1993 Hepatitis B Vaccines (1 of 3 - 19+ 3-dose series) 1994 DTaP, Tdap and Td Vaccines (2 - Td or Tdap) 02/08/2020 02/07/2010 COVID-19 Vaccine ( season) 2024 01/05/2022, 06/12/2021, 07/14/2020, Additional history exists Pneumococcal Vaccine: Pediatrics (0 to 5 Years) and At-Risk Patients (6 to 49 Years) Completed 02/28/2023 Meningococcal B Vaccine Aged Out No l onger eligible based on patient's age to complete this topic Meningococcal Vaccine Aged Out No keena hardeep eligible based on patient's age to complete this topic RSV Immunizations Under 20 Months Aged Out No longer eligible based on patient's age to complete this topic Procedures Procedure Name Priority Date/Time Associated Diagnosis Comments USE ECHOCARDIOGRAM Routine 11/11/2024 9: 55 AM CDT HTN (hypertension) Heart murmur from Last 3 Months Results * USE ECHOCARDIOGRAM (11/11/2024 9:55 AM CDT) Anatomical Region Laterality Modality Cardiac Ultrasound 11/11/2024 9:15 AM CDT Narrative 11/16/2024 10:24 AM CDT Echocardiography Report Pat.Name: Ramon Rondon Pat.ID: [id number] .Date: 11/11/2024 Refer.MD: Rebeca, [facility] Exam Time: 9:15:00 AM Study Type:OUTREACH Height: 71 in Weight: 234 lb BSA: 2.25 m2 Age: 9 1975,49Y Sex: M Sonogrphr: Am Pat. Stat.:Outpatient CPT - 4: 35297 Reason for Study:Hypertension, Heart murmur Procedures: 2D, M-mode, Doppler, Color Flow, Study performed at [place], [place] and interpreted by [facility]. ++++++++++++++++++++++++++++++++++++ SUMMARY: ++++++++++++++++++++++++++++++++++++ The left ventricular size is normal. Left ventricular function is normal. The ejection fraction is >55%. Diastolic filling is normal for age. The right ventricle size is normal. The right ventricular function is normal. Trivial pericardial effusion, without tamponade physiology. Inferior vena cava shows >50% collapse with respiration consistent with normal right atrial pressure. The aortic valve is trileaflet. The mitral valve is structurally normal. There is trace mitral regurgitation. The tricuspid valve appears structurally normal. ++++++++++++++++++++++++++++++++++++ FINDINGS: ++++++++++++++++++++++++++++++++++++ LV: The left ventricular size is normal. Left ventricular function is normal. The ejection fraction is >55%. Diastolic filling is normal for age. RV: The right ventricle size is normal. The right ventricular function is normal. LA: Left atrial size is normal. RA: The right atrial size is normal. FABIENNE: Trivial pericardial effusion, without tamponade physiology. AO: Aorta is normal. PA: Estimated right atrial pressure of 3 mmHg. Unable to reliably quantitate pulmonary systolic pressure. SVn: Inferior vena cava is normal. Inferior vena cava shows >50% collapse with respiration consistent with normal right atrial pressure. AV: The aortic valve is trileaflet. There is no aortic stenosis. There is no evidence of aortic regurgitation. MV: The mitral valve is structurally normal. There is trace mitral regurgitation. PV: Trace pulmonic regurgitation. Pulmonic valve not well visualized. TV: The tricuspid valve appears structurally normal. There is trace tricuspid regurgitation. <Electronic Signature> 11/16/2024 10:24 AM Fernando Reece M.D. Procedure Note Fernando Reece MD - 11/16/2024 Echocardiography Report Pat.Name: Ramon Rondon Pat.ID: [id number] .Date: 11/11/2024 Refer.MD: Rebeca, [facility] Exam Time: 9:15:00 AM Study Type:OUTREACH Height: 71 in Weight: 234 lb BSA: 2.25 m2 Age: 9 1975,49Y Sex: M Sonogrphr: Am Pat. Stat.:Outpatient CPT - 4: [id number] Reason for Study:Hypertension, Heart murmur Procedures: 2D, M-mode, Doppler, Color Flow, Study performed at [facility], [place], [place] and interpreted by [facility]. ++++++++++++++++++++++++++++++++++++ SUMMARY: ++++++++++++++++++++++++++++++++++++ The left ventricular size is normal. Left ventricular function is normal. The ejection fraction is >55%. Diastolic filling is normal for age. The right ventricle size is normal. The right ventricular function is normal. Trivial pericardial effusion, without tamponade physiology. Inferior vena cava shows >50% collapse with respiration consistent with normal right atrial pressure. The aortic valve is trileaflet. The mitral valve is structurally normal. There is trace mitral regurgitation. The tricuspid valve appears structurally normal. ++++++++++++++++++++++++++++++++++++ FINDINGS: ++++++++++++++++++++++++++++++++++++ LV: The left ventricular size is normal. Left ventricular function is normal. The ejection fraction is >55%. Diastolic filling is normal for age. RV: The right ventricle size is normal. The right ventricular function is normal. LA: Left atrial size is normal. RA: The right atrial size is normal. FABIENNE: Trivial pericardial effusion, without tamponade physiology. AO: Aorta is normal. PA: Estimated right atrial pressure of 3 mmHg. Unable to reliably quantitate pulmonary systolic pressure. SVn: Inferior vena cava is normal. Inferior vena cava shows >50% collapse with respiration consistent with normal right atrial pressure. AV: The aortic valve is trileaflet. There is no aortic stenosis. There is no evidence of aortic regurgitation. MV: The mitral valve is structurally normal. There is trace mitral regurgitation. PV: Trace pulmonic regurgitation. Pulmonic valve not well visualized. TV: The tricuspid valve appears structurally normal. There is trace tricuspid regurgitation. <Electronic Signature> 11/16/2024 10:24 AM Fernando Reece M.D. Reggie Jones MD ECHO Final Result from Last 3 Months Insurance MEDICARE MEDICAID Care Teams Consultant Intern Relationship Specialty Start Date End Date Alex Andino MD [address] [place] [id number] PCP - General FAMILY PRACTICE 09/02/23
--- OUTSIDE RECORDS SUMMARY | 2024-12-28 11:43 | XMS_ITS | Referral Summary ---
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 Gender Identity Not on file Sexual Orientation Not on file Last Filed Vital Signs Vital Sign Reading [...] 09/04/2024 10:22 AM CDT Plan of Treatment Not on file Insurance [facility] MEDICARE [facility] Address: [address] [address] [place] [address] Advance Directives For more information, please contact: [phone] Documents on File Type Date Recorded Patient Inter Com Servicer Expl anation ADVANCE DIRECTIVE 09/03/2024 10:34 AM Hernan tobar of Collar Baster Jumpbasting--Medical Care Teams Printer Slotter Helper Relationship Specialty Start Date End Date Reggie Jones MD [address] [place] [address] PCP - General Family Medicine 08/17/24 Demarcus Phan, P[facility] [address] [place] [address] Consulting Physician Foot and Ankle Surg 09/04/24
--- NOTE | 2024-12-28 11:52 | ED_ITS ---
HPI - Skin/Abscess/Foreign Bdy General Chief complaint: Skin/Abscess/Foreign Body Stated complaint: wound to left foot Time Seen by Provider: 12/28/24 11:52 Source: patient and family Mode of arrival: ambulatory Limitations: no limitations History of Present Illness HPI narrative: patient is a 49-year-old male with a left foot infection between 4 and 5th toe. He relates the infection from irritation of poor shoe fitting. He has diabetes 2. There is itching and some pain. He also has other healing wounds on the left foot. 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 MD complaint: lesion ( Between 4th and 5th digit of the left foot) Onset (ago): week(s) ( 1) Tetanus up to date: unsure Location: LLE Severity: mild Severity scale (1-10): 2 Quality: dull and pruritic Pain Consistency: constant Relieving factors: none Exacerbating factors: other ( poor shoes fitting his foot per patient information) Context: other ( no injury to the left foot; patient has 1 week of wound between the 4th and 5th digit of the left foot) Associated symptoms: denies other symptoms Treatments prior to arrival: none Related Data Allergies Allergy/AdvReac Type Severity Reaction Status Date / Time bee venom protein (honey bee) Allergy Unknown Verified 12/28/24 11:43 Penicillins Allergy Unknown Verified 12/28/24 11:43 Sulfa (Sulfonamide Allergy Unknown Verified 12/28/24 11:43 Antibiotics) sulfamethoxazole (From Allergy Unknown Verified 12/28/24 11:43 Bactrim) trimethoprim (From Bactrim) Allergy Unknown Verified 12/28/24 11:43 Review of Systems 2 Review of Systems: All systems reviewed & are unremarkable except as noted in HPI and below Constitutional: Constitutional: Reports no additional constitutional complaints Eyes: Eyes: Reports no additional eye complaints ENT: Reports system reviewed and no additional complaints, except as documented Cardiovascular: Cardiovascular: Reports no additional cardiovascular complaints Respiratory: Respiratory: Reports no additional respiratory complaints Gastrointestinal: Gastrointestinal: Reports no additional gastrointestinal complaints Genitourinary: Genitourinary: Reports no additional male genitourinary complaints Musculoskeletal: Musculoskeletal: Reports no additional musculoskeletal complaints Integumentary/Breasts: Skin/Breast: Reports system reviewed and no additional complaints, except as docu Neurologic: Reports system reviewed and no additional complaints, except as documented Psychiatric: Psychiatric: Reports no additional psychiatric complaints Endocrine: Endocrine: Reports no additional endocrine complaints Hematologic/Lymphatic: Hematologic/Lymphatic: Reports no additional hematologic/lymphatic complaints Allergic/Immunologic: Allergic/Immunologic: Reports no additional allergic/immunologic complaints PMFSH Past Medical History Medical History Periorbital swelling PTSD (post-traumatic stress disorder) Personality disorder Bipolar 1 disorder Exam 2 Const: General: healthy appearing Nutritional Appearance: well nourished Orientation/consciousness: patient oriented x3 HENMT: Head: normal to inspection Ears: external ears normal F mikey/Nose/Sinus: Normal external nose present Eyes: Conjunctivae: conjunctivae normal Pupils: Equal, round and reactive pupils present EOM: EOMs intact bilaterally Neck: Neck: normal visual inspection Chest: Chest palpation & inspection: normal inspection of the chest Resp: Effort & Inspection: normal respiratory effort and not labored A uscultation: clear to auscultation bilaterally and no crackles Cardio: Rate: regular rate Rhythm: regular rhythm Heart sounds: no murmurs GI: Inspection: non-distended Auscultation: normal bowel sounds and bowel sounds present : General: Yes bladder normal to palpation Back/Spine/Pelvis: Back: no CVA tenderness Skin: General skin exam: No normal color Rashes: no rashes Wounds: wound noted Other: left foot has a 4th to 5th digit web space wound moderately deep with ulceration and slightly drainage from the area and erythema of the anterior 1/3 distal left foot; ball of the foot left side has a healing wound Neuro: General: patient oriented x3, moves all extremities, no meningeal signs, no focal motor deficits and CN's II-XI intact bilaterally Extrem: General: abnormal to inspection ( see skin exam; neurovascularly intact left foot) Psych: Mental Status: mental status grossly normal Affect: normal affect Attitude: cooperative Course Vital Signs Vital signs: Vital Signs Temperature 36.6 C 12/28/24 11:33 Pulse Rate 89 12/28/24 11:33 Respiratory Rate 18 12/28/24 11:33 Blood Pressure 147/80 H 12/28/24 11:33 Pulse Oximetry 97 12/28/24 11:33 Oxygen Delivery Room Air 12/28/24 11:33 Temperature 36.6 C 12/28/24 11:33 Pulse Rate 99 12/28/24 12:40 Respiratory Rate 16 12/28/24 12:40 Blood Pressure 152/80 H 12/28/24 12:40 Pulse Oximetry 97 12/28/24 12:40 Oxygen Delivery Room Air 12/28/24 12:40 MDM - Skin/Abscess/Foreign Bdy MDM Narrative Medical decision making narrative: patient is a 49-year-old male with a left foot infection with diabetes 2. We will get an x-ray and labs. patient will be transfer for higher level medical care to see surgery at [facility]. Patient has osteomyelitis. Lab Data Attestation: I reviewed the patient's lab results. 12/28/24 12:11 12/28/24 12:11 Labs: Lab Results 12/28/24 Range/Units 12:11 WBC 8.3 (4.8-10.8) K/mm3 RBC 4.67 L (4.70-6.10) M/mm3 Hgb 13.0 L (14.0-18.0) g/dL Hct 40.0 (40.0-54.0) % MCV 85.7 (78.0-102.0) fL MCH 27.8 (27.0-31.0) pg MCHC 32.5 (32-36) g/dL RDW 15.8 H (11.6-14.4) % Plt Count 117 L (150-420) K/mm3 MPV 11.7 H (8.7-11.0) fl Immature Gran % (Auto) 1.2 H (0.0-0.0) % Neut % (Auto) 78.9 H (50.0-70.0) % Lymph % (Auto) 13.0 L (18.0-42.0) % Sheridan % (Auto) 6.7 (2.0-11.0) % Eos % (Auto) 0.0 L (1.0-6.0) % Baso % (Auto) 0.2 (0.0-1.0) % Lymph # (Auto) 1.08 L (1.10-4.50) K/mm3 Sheridan # (Auto) 0.56 (0.10-0.90) K/mm3 Eos # (Auto) 0.00 L (0.02-0.50) K/mm3 Baso # (Auto) 0.02 (0.00-0.10) K/mm3 Abs Immat Gran (auto) 0.10 H (0.00-0.00) K/mm3 Absolute Neuts (auto) 6.55 (1.70-7.20) K/mm3 Absolute Nucleated RBC 0.00 (0.00-0.00) K/mm3 Nucleated RBC % 0.0 (0-0.0) % % Immature Plt Fraction 6.0 (1.0-7.0) % Sodium 135 L (137-145) mmol/L Potassium 3.7 (3.4-5.0) mmol/L Chloride 99 (98-107) mmol/L Carbon Dioxide 31 H (22-30) mmol/L Anion Gap 5 (4-12) mmol/L BUN 12 (9-20) mg/dL Creatinine 1.04 (0.7-1.3) mg/dL Estim Creat Clear Calc 96 ml/min Estimated GFR > 60 (59 - ) Glucose 159 H (65-110) mg/dL Hemoglobin A1c 6.0 H (<5.7) % Calculated Osmolality 282 L (285-295) mOsm/kg Lactic Acid 1.8 (0.4-2.0) mmol/L Calcium 6.7 L (8.4-10.2) mg/dL Total Bilirubin 0.8 (0.2-1.3) mg/dL AST 24 (17-59) U/L ALT 13 (6-50) U/L Alkaline Phosphatase 94 (38-126) U/L C-Reactive Protein 4.6 H (<1.0) mg/dL Total Protein 7.6 (6.3-8.2) g/dL Albumin 4.1 (3.5-5.1) g/dL Imaging Data Attestation: I personally reviewed and interpreted this imaging study as follows: Radiologist's impression: x-ray left foot shows FINDINGS/ IMPRESSION: Multiple areas of cortical destruction in the fourth proximal and middle phalanx which can be seen in osteomyelitis. Clinical correlation is recommended. No acute fracture or dislocation seen. 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 Chronic degenerative changes. Discharge Plan Discharge Clinical Impression: Diabetic foot, Osteomyelitis of ankle or foot, left, acute, Cellulitis in diabetic foot Patient Disposition: Acute Care Hospital Condition: Stable Patient Language: Irish Prescriptions: No Action doxycycline hyclate 100 mg capsule 100 mg PO BID Qty: 14 0RF prednisone 20 mg tablet 20 mg PO BID Qty: 10 0RF prednisone 20 mg tablet 20 mg PO BID Qty: 10 0RF doxycycline hyclate 100 mg tablet 100 mg PO BID Qty: 14 0RF Follow-up/Referrals: Thu,MD Alex [Primary Care Provider] - Time of Disposition: 13:23
--- OUTSIDE RECORDS SUMMARY | 2024-12-28 12:10 | XMS_ITS | Clinical Summary ---
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
--- OUTSIDE RECORDS SUMMARY | 2024-12-28 12:10 | XMS_ITS | Clinical Summary ---
Author Organization [facility] Address [address] [place] [address] Care Team Providers Care Ssds Mk 2 Advanced Operator Name Role Phone Alex Andino MD Primary Care Provider [phone] Encounters Date Type Department Care Team Description 11/11/2024 8:52 AM CDT - 11/11/2024 11:59 PM CDT Hospital Encounter [facility] [address] [place] [address] Reggie Jones MD Discharge Disposition: Home or Self Care (Routine Discharge) 11/11/2024 Travel from Last 3 Months Social History Tobacco Use Types Packs/Day Years Used Date Smoking Tobacco: Never Assessed Sex and Gender Information Value Date Recorded Sex Assigned at Male 07/15/2024 3:35 PM HEEL FORMER Legal Sex Male 8:01 AM CDT Gender [...] CDT Echocardiography Report Pat.Name: Ramon Rondon Pat.ID: [id number] .Date: 11/11/2024 Refer.MD: Rebeca, [facility] Exam Time: 9:15:00 AM Study Type:OUTREACH Height: 71 in Weight: 234 lb BSA: 2.25 m2 Age: 9 1975,49Y Sex: M Sonogrphr: Am Pat. Stat.:Outpatient CPT - 4: 55687 Reason for Study:Hypertension, Heart murmur Procedures: 2D, M-mode, Doppler, Color Flow, Study performed at [place], [place] and interpreted by [facility]. [...] 11/16/2024 Echocardiography Report Pat.Name: Ramon Rondon Pat.ID: [id number] .Date: 11/11/2024 Refer.MD: Rebeca, [facility] Exam Time: 9:15:00 AM Study Type:OUTREACH Height: 71 in Weight: 234 lb BSA: 2.25 m2 Age: 9 1975,49Y Sex: M Sonogrphr: Am Pat. Stat.:Outpatient CPT - 4: 44185 Reason for Study:Hypertension, Heart murmur Procedures: 2D, M-mode, Doppler, Color Flow, Study performed at [facility], [place], [place] and interpreted by [facility]. ++++++++++++++++++++++++++++++++++++ SUMMARY: ++++++++++++++++++++++++++++++++++++ The left [...] 3 Months Insurance MEDICARE MEDICAID Care Teams Ssds Mk 2 Advanced Operator Relationship Specialty Start Date End Date Alex Andino MD [address] [place] [id number] PCP - General FAMILY PRACTICE 09/02/23
--- OUTSIDE RECORDS SUMMARY | 2024-12-28 12:10 | XMS_ITS | Referral Summary ---
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 Gender Identity Not on file Sexual Orientation [...] Plan of Treatment Not on file Insurance [facility] MEDICARE [facility] Address: [address] [address] [place] [address] Advance Directives For more information, please contact: [phone] Documents on File Type Date Recorded Patient Food Service Aide Expl anation ADVANCE DIRECTIVE 09/03/2024 10:34 AM Hernan tobar of Farmworker Field Crop--Medical Care Teams Personalized Living Assistant Relationship Specialty Start Date End Date Reggie Jones MD [address] [place] [address] PCP - General Family Medicine 08/17/24 Demarcus Phan, [facility] [address] [place] [address] Consulting Physician Foot and Ankle Surg 09/04/24
[2024-12-28 12:26] LABS: Hematocrit 40.0 % (40.0-54.0); Hemoglobin 13.0 g/dL (14.0-18.0); Immature Granulocyte Percent A 1.2 % (0.0-0.0); Immature Platelet Fraction Pct 6.0 % (1.0-7.0); Lymphocytes Absolute Auto 1.08 K/mm3 (1.10-4.50); Mean Corpuscular HGB Conc 32.5 g/dL (32-36); Mean Corpuscular Hemoglobin 27.8 pg (27.0-31.0); Mean Corpuscular Volume 85.7 fL (78.0-102.0); Nucleated Red Blood Cells Absolute Auto 0.00 K/mm3 (0.00-0.00); Nucleated Red Blood Cells Perc 0.0 % (0-0.0); Platelet Count Result 117 K/mm3 (150-420); Red Blood Count 4.67 M/mm3 (4.70-6.10); White Blood Count 8.3 K/mm3 (4.8-10.8)
[2024-12-28 12:38] LABS: Alanine Aminotransferase 13 U/L (6-50); Albumin Level 4.1 g/dL (3.5-5.1); Alkaline Phosphatase 94 U/L (38-126); Anion Gap 5 mmol/L (4-12); Aspartate Amino Transferase 24 U/L (17-59); Bilirubin,Total 0.8 mg/dL (0.2-1.3); Blood Urea Nitrogen 12 mg/dL (9-20); CRP 4.6 mg/dL (<1.0); Calcium 6.7 mg/dL (8.4-10.2); Carbon Dioxide 31 mmol/L (22-30); Chloride 99 mmol/L (98-107); Estimated CRCL calculation 96 ml/min; Estimated Glomerular Filt Rate > 60; Glucose 159 mg/dL (65-110); Osmolality Calculated 282 mOsm/kg (285-295); Potassium 3.7 mmol/L (3.4-5.0); Sodium 135 mmol/L (137-145); Total Protein 7.6 g/dL (6.3-8.2)
[2024-12-28 12:40] VITALS: BP 152/80; PULSE 99; RESP 16; O2SAT 97
[2024-12-28 12:41] LABS: Hemoglobin A1C 6.0 % (<5.7)
[2024-12-28] MEDS: TETANUS,DIPHTHERIA,AC PERTUSSIS ADULT 0.5 ML (ADACEL) IM (13:11)
[2024-12-28] MEDS: levoFLOXacin 750 MG/D5W 150 ML 750 MG/150 ML BAG 100 MG IVPB (13:11)
[2024-12-28 13:30] VITALS: BP 133/63; PULSE 62; RESP 16; O2SAT 98
[2024-12-28 14:30] VITALS: BP 140/68; PULSE 75; RESP 16; TEMP 36.7; O2SAT 98
[2024-12-28] MEDS: VANCOMYCIN 1,250 MG/NS 250 ML 1,250 MG/250 ML BAG 166.67 MG IVPB (14:43)
[2024-12-28 15:45] VITALS: BP 138/88; PULSE 72; RESP 18; TEMP 36.6; O2SAT 99
--- NOTE | 2024-12-30 12:32 | PC.NURSE ---
PRELIMINARY BLOOD CULTURE NO GROWTH AT THIS TIME
--- NOTE | 2024-12-31 13:11 | PC.NURSE ---
FINAL WOUND CULTURE REPORT FAXED TO [facility], PATIENT TRANSFERED TO ROOM 340. FAXED TO [phone]
--- NOTE | 2025-01-01 12:11 | PC.NURSE ---
blood culture preliminary, no growth
--- NOTE | 2025-01-01 12:14 | PC.NURSE ---
pt transferred to [place], spoke with nurse, pt discharged yesterday. message left for hospitalist to clarify if pt d/c with antibiotic, in regards to lt 4th toe wound culture.
--- NOTE | 2025-01-01 12:18 | PC.NURSE ---
attempted to reach pt, no answer at number provided.
--- NOTE | 2025-01-01 12:43 | PC.NURSE ---
spoke with bernard ramirez, hospitalist nurse. states pt discharged on doxycycline/levaquin. was aware of wound culture prior to discharge. no action needed.
--- NOTE | 2025-01-04 12:54 | PC.NURSE ---
FINAL BLOOD CULTURE REPORT; NO GROWTH IN 5 DAYS.
== END 2024-12-28 15:45 | disposition short-term general hospital (02) ==
PROVIDERS: Emergency Provider Emergency Medicine; PCP Family Medicine
DX: E11.69 Type 2 diabetes mellitus with other specified complication (principal); M86.172 Other acute osteomyelitis, left ankle and foot; L03.116 Cellulitis of left lower limb; Z23 Encounter for immunization
CPT/HCPCS: 36415; 73630; 80053; 83036; 83605; 85025; 85055; 86140; 90471; 90715; 96365; 96366; 96367; 99285; J1956; J3373

== ENCOUNTER 2024-12-28 16:27 | Inpatient (IN) | payer MEDICARE, MEDICAID, SELFPAY ==
--- NOTE | ~2024-12-28 | MR_ITS ---
EXAMINATION: MR foot LT wo/w con DATE: 12/30/2024 11:56 INDICATION: Diabetic presenting with infection and regions of of cortical destruction on prior radiog raphs at the fourth toe of the left foot suspicious for osteomyelitis. TECHNIQUE: Magnetic resonance imaging (MRI) of the left fore/mid foot was performed without and with 20 mL Multihance intravenous contrast. Sequences included axial, sagittal and coronal T1-weighted FSE , sagittal fluid sensitive FSE STIR, axial and coronal T2-weighted FS FSE, axial T1-weighted FS FSE, postcontrast axial, sagittal and coronal T1-weighted FS FSE. COMPARISON: None FINDINGS: Osteolysis centered at the fourth proximal interphalangeal joint involving the distal two thirds of t he fourth proximal phalanx and the base of the middle phalanx. There is increased marrow edema and en hancement and geographic loss of T1 fat signal along the margin of the region of ostial lysis consist ent with advanced osteomyelitis secondary to septic arthritis. Chronic first interphalangeal arthrode sis and osteotomy along the medial aspect of the first distal phalanx which can be seen dating back t o radiograph dated 07/11/2024. No marrow signal abnormalities to suggest recurrent ostomy myelitis. The re has been a recent amputation across the neck of the second middle phalanx which appears to occurre d in the interval between radiographs dated 07/11/2024 and 11/29/2024. There is mild increased fluid sig nal and enhancement at the remainder of the base of the middle phalanx without loss of T1 fat signal which remains equivocal for reactive edema versus early osteomyelitis. There appears be a small regio n of ostial lysis at the tuft of the third distal phalanx with mild marrow edema, enhancement and los s of T1 marrow fat signal and loss of the sharply defined cortical margin on the prior radiographs al so consistent with osteomyelitis. No other lesions suspicious for osteomyelitis. Mild polyarticular o steoarthritis at multiple joints in the mid and forefoot most prominent at the first metatarsophalang eal joint. No abscess, joint effusion or tenosynovitis.. IMPRESSION: 1. 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 2. Osteolysis at the tuft of the third distal phalanx with her edema, enhancement and loss of T1 fat signal consistent with osteomyelitis. 3. Mild marrow edema and enhancement along the margin of an osteotomy of the second middle phalanx wh ich is equivocal for residual reactive change versus early osteomyelitis. 4. Chronic first interphalangeal arthrodesis and chronic osteotomy at the first distal phalanx withou t evident ongoing osteomyelitis is or marrow signal changes to suggest osteomyelitis. Reviewed, dictated and finalized at location A. IMPRESSION: 1. Advanced osteoarthritis involving the majority of the fourth proximal phalan x and the base of the fourth middle phalanx likely secondary to septic arthriti s at the proximal interphalangeal joint. 2. Osteolysis at the tuft of the third distal phalanx with her edema, enhanceme nt and loss of T1 fat signal consistent with osteomyelitis. 3. Mild marrow edema and enhancement along the margin of an osteotomy of the se cond middle phalanx which is equivocal for residual reactive change versus edwardo y osteomyelitis. 4. Chronic first interphalangeal arthrodesis and chronic osteotomy at the first distal phalanx without evident ongoing osteomyelitis is or marrow signal begum es to suggest osteomyelitis.
--- OUTSIDE RECORDS SUMMARY | 2024-12-28 16:30 | XMS_ITS | Clinical Summary ---
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
--- OUTSIDE RECORDS SUMMARY | 2024-12-28 16:30 | XMS_ITS | Referral Summary ---
Author Organization 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 Gender Identity Not on file Sexual Orientation [...] Plan of Treatment Not on file Insurance [facility] MEDICARE [facility] Address: [address] [address] [place] [address] Advance Directives For more information, please contact: [phone] Documents on File Type Date Recorded Patient Lead Tank Mechanic Expl anation ADVANCE DIRECTIVE 09/03/2024 10:34 AM Hernan tobar of Material Control Manager--Medical Care Teams Behavioral Health Specialist Relationship Specialty Start Date End Date Reggie Jones MD [address] [place] [address] PCP - General Family Medicine 08/17/24 Demarcus Phan, P[facility] [address] [place] [address] Consulting Physician Foot and Ankle Surg 09/04/24
--- OUTSIDE RECORDS SUMMARY | 2024-12-28 16:30 | XMS_ITS | Clinical Summary ---
Author Organization [facility] Address [address] [place] [address] Care Team Providers Care Crystal Attacher Name Role Phone Alex Andino MD Primary Care Provider [phone] Encounters Date Type Department Care Team Description 11/11/2024 8:52 AM CDT - 11/11/2024 11:59 PM CDT Hospital En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 Stat.:Outpatient CPT - 4: 00967 Reason for Study:Hypertension, Heart murmur Procedures: 2D, M-mode, Doppler, Color Flow, Study performed at [place], [place] and interpreted by [facility]. [...] 11/16/2024 Echocardiography Report Pat.Name: Ramon Rondon Pat.ID: [id number] .Date: 11/11/2024 Refer.MD: Rebeca, [facility] Exam Time: 9:15:00 AM Study Type:OUTREACH Height: 71 in Weight: 234 lb BSA: 2.25 m2 Age: 9 1975,49Y Sex: M Sonogrphr: Am Pat. Stat.:Outpatient CPT - 4: 61615 Reason for Study:Hypertension, Heart murmur Procedures: 2D, M-mode, Doppler, Color Flow, Study performed at [facility], [place], [place] and interpreted by [facility]. ++++++++++++++++++++++++++++++++++++ SUMMARY: ++++++++++++++++++++++++++++++++++++ The left [...] 3 Months Insurance MEDICARE MEDICAID Care Teams Crystal Attacher Relationship Specialty Start Date End Date Alex Andino MD [address] [place] [id number] PCP - General FAMILY PRACTICE 09/02/23
[2024-12-28 16:54] VITALS: BP 133/70; PULSE 80; RESP 12; TEMP 36.5; O2SAT 100
--- NOTE | 2024-12-28 16:56 | ADMGEN ---
This patient, Ramon Rondon, was admitted to Medical Room 340-01. Patient/family oriented to hospital policies and general routines including ID bracelet, bed and alarms, visiting hours, pain management, procedures, bathroom and other care routines, personal items, smoking policy, room service/diet, and visiting hours. Information on how to activate the Rapid Response Team has been discussed. Patient/Family are encouraged to report perceived risks to care and to ask questions if they do not understand what they are told or what they should do.
--- NOTE | 2024-12-28 17:01 | PC.NURSE ---
RN spoke with hospitalist Khloe Young. Updated her that direct admit has arrived into 340.
--- NOTE | 2024-12-28 17:25 | P.HP_ITS ---
H&P: HPI History of Present Illness Date/Time: 12/28/24 18:00 Chief Complaint: Left foot wound. Narrative: This is a pleasant 49-year-old male with history of diabetic foot ulcers with partial amputation of the left 2nd toe, diet-controlled type 2 diabetes mellitus, hypothyroidism, posttraumatic stress disorder, and bipolar disorder who presented to the emergency department at [facility] via private vehicle earlier today for evaluation of a left foot wound. He wears compression hose daily for ?poor circulation? although had normal bilateral ankle brachial indices in July 2024. It is not unusual for him to develop small blisters or wounds due to the swelling and within the last week or so he noticed a wound between his left 4th and 5th toes. Wound is worsening and he is now having small amounts of foul-smelling drainage. He is otherwise feeling well and denies fever, chills, sweats, nausea, and vomiting. The wound is not painful. No known history of MRSA or other multidrug resistant organisms. In the ED: He was afebrile on arrival with a blood pressure of 147/80. Labs were significant for WBC count of 8.3, hemoglobin 13.0, platelet 117, glucose 159, lactic acid 1.8, CRP 4.6. X-rays showed multiple areas of cortical destruction in the 4th proximal and middle phalanx which can be seen osteomyelitis. He was given vancomycin 1500 mg and levofloxacin 750 mg as well as a tetanus booster. He is being transferred to [place] for further management and surgery consultation. Review of Systems Review of Systems: 12 systems were reviewed and are negativ e except for as per HPI. [facility] Past Medical History Medical History (Updated 12/28/24 @ 22:09 by Khloe Young PA-C) Hypothyroidism Diet-controlled type 2 diabetes mellitus Posttraumatic stress disorder Personality disorder Bipolar 1 disorder Surgical History Surgical History (Updated 12/28/24 @ 22:03 by Khloe Young PA-C) History of amputation of left second toe Social History Social History (Updated 12/28/24 @ 22:04 by Khloe Young PA-C) Social History: Surrogate medical decision maker: Rojelio Rondon, father. Code status: Full code. Smoking status: Never smoker Alcohol intake: never Substance use: never Substance use type: does not use Do You Feel Safe in your Home?: Yes Lack of Transportation: No Lack of Food: Never True Current Housing: I Have Housing Concerned About Future Housing: No Difficulty Paying Gas/Electric Bills: No Difficulty Paying for Meds: No Currently Unemployed: No Education: Don't Know Difficulty w/ Childcare or Family Care: No Spiritual care concerns: No Meds Home Medications and Allergies Home Medications ?Medication ?Instructions ?Recorded ?Confirmed ?Type acetaminophen 325 mg tablet 325 mg PO PRN PRN fever or pain 12/28/24 12/28/24 History aripiprazole 10 mg tablet 10 mg PO DAILY 12/28/24 12/28/24 History buspirone 10 mg tablet 10 mg PO BID 12/28/24 12/28/24 History citalopram 20 mg tablet 20 mg PO DAILY 12/28/24 12/28/24 History diphenhydramine HCl 25 mg capsule 25 mg PO Q6H PRN itching 12/28/24 12/28/24 History (Banophen) ferrous sulfate 325 mg (65 mg 325 mg PO DAILY 12/28/24 12/28/24 History iron) tablet (FeroSul) fluticasone propionate 50 1 spray intranasal BID 12/28/24 12/28/24 History mcg/actuation nasal spray,suspension furosemide 20 mg tablet 20 mg PO DAILY 12/28/24 12/28/24 History levothyroxine 200 mcg tablet 200 mcg PO DAILY@0630 12/28/24 12/28/24 History terbinafine HCl 250 mg tablet 250 mg PO DAILY 12/28/24 12/28/24 History Allergies Allergy/AdvReac Type Severity Reaction Status Date / Time bee venom protein (honey bee) Allergy Unknown Verified 12/28/24 11:43 Penicillins Allergy Unknown Verified 12/28/24 11:43 Sulfa (Sulfonamide Allergy Unknown Verified 12/28/24 11:43 Antibiotics) sulfamethoxazole (From Allergy Unknown Verified 12/28/24 11:43 Bactrim) trimethoprim (From Bactrim) Allergy Unknown Verified 12/28/24 11:43 Vital Signs Vital Signs - 24 hr 12/28/24 16:54 Temperature 97.7 F Pulse Rate 80 Respiratory Rate 12 Blood Pressure 133/70 Pulse Oximetry 100 Exam Narrative: General: Well-developed, nontoxic-appearing male sitting at the side of the bed in no distress. HEENT: PERRL, EOMI. Sclera anicteric. Oral mucosa moist. Neck: Supple. Respiratory: Lungs are clear to auscultation bilaterally. Cardiovascular: Regular rate and rhythm with S1-S2. No murmur, rub, or gallop. Gastrointestinal: Abdomen is soft, nontender, and nondistended with positive bowel sounds. Skin: Warm and dry. The left foot is wrapped and that was not removed for examination. Please see ED physician note for description. There is erythema and edema on the dorsum of the left foot extending to about 1[address] the left lower leg. There is shallow ulceration on the right medial calf as well. Both legs are a bit hyperpigmented likely due to chronic stasis. Extremities: No cyanosis or clubbing. Bilateral lower extremity pitting edema. Neurological: Alert. Cranial nerves 2-12 are grossly intact. No gross focal deficits to casual conversation. Psychiatric: Pleasant and cooperative with appropriate mood and affect. H&P: Results Labs Labs: Labs obtained from outside facility: 12/28/24 Range/Units 12:11 ? WBC 8.3 (4.8-10.8) K/mm3 RBC 4.67 L (4.70-6.10) M/mm3 Hgb 13.0 L (14.0-18.0) g/dL Hct 40.0 (40.0-54.0) % MCV 85.7 (78.0-102.0) fL MCH 27.8 (27.0-31.0) pg MCHC 32.5 (32-36) g/dL RDW 15.8 H (11.6-14.4) % Plt Count 117 L (150-420) K/mm3 MPV 11.7 H (8.7-11.0) fl Immature Gran % (Auto) 1.2 H (0.0-0.0) % Neut % (Auto) 78.9 H (50.0-70.0) % Lymph % (Auto) 13.0 L (18.0-42.0) % Kings % (Auto) 6.7 (2.0-11.0) % Eos % (Auto) 0.0 L (1.0-6.0) % Baso % (Auto) 0.2 (0.0-1.0) % Lymph # (Auto) 1.08 L (1.10-4.50) K/mm3 Kings # (Auto) 0.56 (0.10-0.90) K/mm3 Eos # (Auto) 0.00 L (0.02-0.50) K/mm3 Baso # (Auto) 0.02 (0.00-0.10) K/mm3 Abs Immat Gran (auto) 0.10 H (0.00-0.00) K/mm3 Absolute Neuts (auto) 6.55 (1.70-7.20) K/mm3 Absolute Nucleated RBC 0.00 (0.00-0.00) K/mm3 Nucleated RBC % 0.0 (0-0.0) % % Immature Plt Fraction 6.0 (1.0-7.0) % Sodium 135 L (137-145) mmol/L Potassium 3.7 (3.4-5.0) mmol/L Chloride 99 (98-107) mmol/L Carbon Dioxide 31 H (22-30) mmol/L Anion Gap 5 (4-12) mmol/L BUN 12 (9-20) mg/dL Creatinine 1.04 (0.7-1.3) mg/dL Estim Creat Clear Calc 96 ml/min Estimated GFR > 60 (59 - ) Glucose 159 H (65-110) mg/dL Hemoglobin A1c 6.0 H (<5.7) % Calculated Osmolality 282 L (285-295) mOsm/kg Lactic Acid 1.8 (0.4-2.0) mmol/L Calcium 6.7 L (8.4-10.2) mg/dL Total Bilirubin 0.8 (0.2-1.3) mg/dL AST 24 (17-59) U/L ALT 13 (6-50) U/L Alkaline Phosphatase 94 (38-126) U/L C-Reactive Protein 4.6 H (<1.0) mg/dL Total Protein 7.6 (6.3-8.2) g/dL Albumin 4.1 (3.5-5.1) g/dL Imaging Left foot x-ray: Radiologist's impression: Multiple areas of cortical destruction in the fourth proximal and middle phalanx which can be seen in osteomyelitis. Clinical correlation is recommended. No acute fracture or dislocation seen. 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 Chronic degenerative changes. Assessment and Plan Assessment and plan (1) Osteomyelitis of fourth toe of left foot: Code(s): M86.9 - Osteomyelitis, unspecified Status: Acute (2) Diabetic infection of left foot: Code(s): E11.628 - Type 2 diabetes mellitus with other skin complications; L08.9 - Local infection of the skin and subcutaneous tissue, unspecified Status: Acute (3) Diet-controlled type 2 diabetes mellitus: Code(s): E11.9 - Type 2 diabetes mellitus without complications Status: Acute (4) Hypothyroidism: Code(s): E03.9 - Hypothyroidism, unspecified Status: Acute Plan The patient presented to the outside facility for evaluation of a left toe wound present for at least the last week as detailed in HPI. Labs, imaging, EKG, and all reports were personally reviewed. Preliminary workup was significant for a normal WBC count, mildly elevated CRP, ulcerated wound between the left 4th and 5th webspace, and radiograph showing findings concerning for osteomyelitis. He received levofloxacin and vancomycin at the outside facility and these will be continued, pending culture. As mentioned in HPI, he had normal ABIs done earlier this year. He will be NPO after midnight for possible surgery tomorrow. Dr. Mcgovern has been consulted and his input is appreciated. The patient's diabetes is diet controlled with an A1c today of 6.0%. Initiate sliding scale insulin, Accu-Cheks, and hypoglycemic protocol. Continue levothyroxine and check TSH. Blood pressures have been running a bit high and will be monitored closely. He does not take antihypertensive. Findings and treatment plan were discussed with the patient. Questions were solicited and answered to satisfaction. The patient's medical management will be taken over by the hospitalist team in a.m. Quality VTE Prophylaxis VTE prophylaxis: mechanical ordered If No VTE Prophylaxis Answer both mechanical and pharmacologic: Reason no pharmacologic proph: medical contraindication (hold for now as he may require surgery tomorrow; readdress daily) The patient has been admitted under observation status. Hospitalist MIPS Advance Care Plan I have confirmed that the patient's Advanced Care Plan is present, code status is documented, or surrogate decision maker is listed in patient medical record.: Yes Medication Reconciliation I have utilized all available resources to obtain, update and review the patients current medications (includes all prescriptions, OTC, herbals, cannabis, and nutritional supplements).: Yes
[2024-12-28] MEDS: VANCOMYCIN 1,250 MG/NS 250 ML 1,250 MG/250 ML BAG 166.67 MG IVPB (17:59)
[2024-12-28 19:47] VITALS: BP 140/72; PULSE 88; RESP 12; TEMP 36.1; O2SAT 100
[2024-12-29] MEDS: CALCIUM GLUC 2,000 MG/NS 100ML 2,000 MG/100 ML BAG 100 MG IVPB (01:50)
[2024-12-29 04:25] VITALS: BP 109/61; PULSE 117; RESP 14; TEMP 36; O2SAT 96
[2024-12-29] MEDS: VANCOMYCIN 1,500 MG/NS 500 ML 1,500 MG/500 ML BAG 250 MG IVPB ×2 (04:39→17:25)
[2024-12-29 05:54] LABS: Hematocrit 36.7 % (42.0-52.0); Hemoglobin 12.1 g/dL (14.0-18.0); Immature Platelet Fraction Pct 7.2 % (0.9-11.2); Mean Corpuscular HGB Conc 33.0 g/dl (32-36); Mean Corpuscular Hemoglobin 28.3 pg (26-34); Mean Corpuscular Volume 85.7 fl (80-100); Platelet Count Result 99 k/mm3 (150-375); Red Blood Count 4.28 M/mm3 (4.6-6.20); White Blood Count 8.4 K/mm3 (4.5-10.0)
[2024-12-29] MEDS: LEVOTHYROXINE SODIUM 100 MCG TABLET 200 MCG PO (06:02)
[2024-12-29 06:11] LABS: Anion Gap 7 mmol/L (4-12); Blood Urea Nitrogen 13 mg/dL (9-20); Calcium 7.1 mg/dL (8.4-10.2); Carbon Dioxide 27 mmol/L (22-30); Chloride 98 mmol/L (98-107); Estimated Glomerular Filt Rate > 60; Glucose 197 mg/dL (65-110); Magnesium 1.7 mg/dL (1.6-2.3); Potassium 3.5 mmol/L (3.4-5.0); Sodium 132 mmol/L (137-145)
[2024-12-29 06:40] LABS: Thyroid Stimulating Hormone Reflex 11.200 uIU/mL (0.465-4.68)
[2024-12-29 07:51] LABS: Free T4 Free Thyroxine Reflex 0.91 ng/dL (0.78-2.19)
--- NOTE | 2024-12-29 07:59 | P.PNIM_ITS ---
Progress Note: A&P Assessment and Plan (1) Osteomyelitis of fourth toe of left foot: Code(s): M86.9 - Osteomyelitis, unspecified Status: Acute Assessment and Plan: * Presenting to hospital for wound on the left toe between the 4th and 5th webspace for approximately 1 week * Foot x-ray: * Multiple areas of cortical destruction in the fourth proximal and middle phalanx which can be seen in osteomyelitis. Clinical correlation is recommended. * No acute fracture or dislocation seen. 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 Chronic degenerative changes. * WBC 8.4, CRP 4.6 * General surgery consulted * NPO at midnight for possible surgery today (2) Diabetic infection of left foot: Code(s): E11.628 - Type 2 diabetes mellitus with other skin complications; L08.9 - Local infection of the skin and subcutaneous tissue, unspecified Status: Acute Assessment and Plan: * See above (3) Diet-controlled type 2 diabetes mellitus: Code(s): E11.9 - Type 2 diabetes mellitus without complications Status: Acute Assessment and Plan: * Hypoglycemia protocol * POC blood glucose ACHS * Home medication - none * Correct regimen ordered - SSI, low dose TIDWM and HS * A1C 6.0 (12/28/2024) (4) Hypothyroidism: Code(s): E03.9 - Hypothyroidism, unspecified Status: Acute Assessment and Plan: * Continue levothyroxine Subjective Date/time seen: 12/29/24 07:59 Interval history: 49-year-old male with history of diabetic foot ulcers with partial amputation of the left 2nd toe, diet-controlled T2DM, hypothyroidism, PTSD, and bipolar disorder who presented to the ED at [facility] for evaluation of a left foot wound. 12/29/2024 Patient is sitting comfortably at bedside during examination. Denies any chest pain, shortness a breath, abdominal pain. Does have some left foot discomfort, but patient states that it is pruritic. Seen by General surgery, they will discuss with Dr. Mcgovern regarding diabetic infection of left foot. Patient otherwise stable and has no complaints. Review of Systems Review of Systems: 12 systems were reviewed and are negativ e except for as per HPI. Exam Narrative: General: Well-developed, nontoxic-appearing male sitting at the side of the bed in no distress. HEENT: PERRL, EOMI. Sclera anicteric. Oral mucosa moist. Neck: Supple. Respiratory: Lungs are clear to auscultation bilaterally. Cardiovascular: Regular rate and rhythm with S1-S2. No murmur, rub, or gallop. Gastrointestinal: Abdomen is soft, nontender, and nondistended with positive bowel sounds. Skin: Warm and dry. The left foot is wrapped and that was not removed for examination. Please see ED physician note for description. There is erythema and edema on the dorsum of the left foot extending to about 1/[address] the left lower leg. There is shallow ulceration on the right medial calf as well. Both legs are a bit hyperpigmented likely due to chronic stasis. Extremities: No cyanosis or clubbing. Bilateral lower extremity pitting edema. Neurological: Alert. Cranial nerves 2-12 are grossly intact. No gross focal deficits to casual conversation. Psychiatric: Pleasant and cooperative with appropriate mood and affect. Objective Data Vital Signs Vital Signs: Vital Signs - 24 hr 12/28/24 16:54 12/28/24 19:47 12/28/24 20:00 Temperature 97.7 F 96.9 F L Pulse Rate 80 88 Respiratory Rate 12 12 Blood Pressure 133/70 140/72 Pulse Oximetry 100 100 Oxygen Delivery Room Air 12/29/24 04:25 Temperature 96.8 F L Pulse Rate 117 H Respiratory Rate 14 Blood Pressure 109/61 Pulse Oximetry 96 Oxygen Delivery Intake/Output Intake/Output: Intake & Output 12/26/24 12/27/24 12/28/24 12/29/24 23:59 23:59 23:59 23:59 Intake Total 1270 800 Balance 1270 800 Meds/Results Medications: Active Medications Generic Name Dose Route Start Last Admin Trade Name Freq PRN Reason Stop Dose Admin Acetaminophen 650 mg 12/28/24 17:23 Acetaminophen 325 Mg Tablet PO Q4H PRN Mild Pain (1-3) or Fever Aripiprazole 10 mg 12/29/24 09:00 Aripiprazole 10 Mg Tablet PO DAILY [facility] Buspirone HCl 10 mg 12/28/24 22:15 12/28/24 23:33 Buspirone Hcl 10 Mg Tablet PO Not Given BID [facility] Citalopram Hydrobromide 20 mg 12/29/24 09:00 Citalopram Hydrobromide 20 Mg Tablet PO DAILY [facility] Dextrose 12.5 gm 12/28/24 17:26 Dextrose 50% 25 Gm/50 Ml Syringe IV PUSH PRN PRN Hypoglycemia Protocol Diphenhydramine HCl 25 mg 12/28/24 22:08 Diphenhydramine Hcl Cap 25 Mg Capsule PO Q6H PRN itching Ferrous Sulfate 325 mg 12/29/24 09:00 Ferrous Sulfate [address] PO DAILY [facility] Fluticasone Propionate 1 spray 12/29/24 09:00 Fluticasone Propionate 0.05% Na Spr 16 Gm Btl (*Bkc) NASAL BID [facility] Furosemide 20 mg 12/29/24 09:00 Furosemide 20 Mg Tablet PO DAILY [facility] Glucagon 1 mg 12/28/24 17:26 Glucagon For Inj 1 Mg Vial IM PRN PRN Hypoglycemia Protocol Glucose 15 gm 12/28/24 17:26 Glucose Oral Gel 15 Gm Of Glucse In 37.5 Gm Tube PO PRN PRN Hypoglycemia Protocol Dextrose 1,000 mls @ 100 mls/hr 12/28/24 17:26 Dextrose 5% 1,000 Ml IVPB PRN PRN Hypoglycemia Protocol Levofloxacin/Dextrose 750 mg in 150 mls @ 100 mls/hr 12/29/24 13:00 Levaquin 750 Mg/D5w 150 Ml IVPB Q24H [facility] Vancomycin HCl 1,500 mg in 500 mls @ 250 mls/hr 12/29/24 04:00 12/29/24 06:39 Vancomycin 1,500 Mg/Ns 500 Ml IVPB Infused Q12H [facility] Infusion Insulin Aspart 2 - 5 units 12/29/24 08:00 Insulin Aspart (*Bkc) 100 Units/Ml SUB-Q TIDWM [facility] Protocol Insulin Aspart 1 - 2 units 12/28/24 21:00 12/28/24 23:33 Insulin Aspart (*Bkc) 100 Units/Ml SUB-Q Not Given HS [facility] Protocol Levothyroxine Sodium 200 mcg 12/29/24 06:30 12/29/24 06:02 Levothyroxine Sodium 100 Mcg Tablet PO 200 mcg DAILY@0630 [facility] Administration Miscellaneous Information 1 each 12/29/24 00:01 Please Enter Patient Height And Weight For Medication Dosing XX 01/28/25 00:00 CLARIFY [facility] Labs Labs: Laboratory Results - last 24 hr 12/28/24 12/28/2412/29/25 17:21 19:44 05:11 WBC 8.4 RBC 4.28 L Hgb 12.1 L Hct 36.7 L MCV 85.7 MCH 28.3 MCHC 33.0 RDW 16.0 H Plt Count 99 L MPV 12.2 H % Immature Plt Fraction 7.2 Sodium 132 L Potassium 3.5 Chloride 98 Carbon Dioxide 27 Anion Gap 7 BUN 13 Creatinine 1.11 Estim Creat Clear Calc Not Reportable Estimated GFR > 60 Glucose 197 H POC Capillary Glucose 172 H 117 H Calcium 7.1 L Magnesium 1.7 TSH (Reflex) 11.200 H Free T4 0.91 Quality VTE Prophylaxis VTE prophylaxis: mechanical ordered
[2024-12-29 08:59] LABS: Total Triiodothyronine (T3) 0.75 NG/ML (0.82-1.58)
--- NOTE | 2024-12-29 09:32 | P.CONGS_ITS ---
Assessment and Plan Assessment and plan (1) Diabetic infection of left foot: Code(s): E11.628 - Type 2 diabetes mellitus with other skin complications; L08.9 - Local infection of the skin and subcutaneous tissue, unspecified Status: Acute Assessment and Plan: Patient presented to [place] ED yesterday with left foot wound to interdigital space between 4th and 5th toes that has been present for roughly 2 weeks. X-ray of the foot suggested multiple areas of cortical destruction in the 4th proximal and middle phalanx which can be seen in osteomyelitis. These changes were not present on previous foot x-ray about a month ago. No outwardly visible changes noted to 4th digit. Patient does not note much pain to the area, but complains of itching. He does admit that there was some drainage from the area when the wound was 1st noted, that has since resolved. He does note a foul odor. He has been ambulating without difficulty. At this assisted living facility where he resides, nursing staff has been applying Neosporin to the area. Significant edema and erythema to left foot. Afebrile with normal WBC count. A1c yesterday was 6.0. Currently on vancomycin and Levaquin IV. Will discuss treatment options with surgeon director of litigation - amputation vs debridement vs medical treatment. Keep patient NPO at this time. (2) Osteomyelitis of fourth toe of left foot: Code(s): M86.9 - Osteomyelitis, unspecified Status: Acute Assessment and Plan: No exposed bone on physical exam. See above for plan. (3) Diet-controlled type 2 diabetes mellitus: Code(s): E11.9 - Type 2 diabetes mellitus without complications Status: Acute Assessment and Plan: Continue per hospitalist recs. Plan Discussed patient's case and plan of care with Dr. Mcgovern. History of Present Illness Consult details Consult date: 12/29/24 Reason for consult: other (Infected diabetic foot wound, suspected osteomyelitis) Requesting physician: Khloe Young PA-C Narrative: Patient is a 49-year-old male with history of type 2 diabetes mellitus (insulin- dependent), diabetic foot ulcer with partial amputation of the left 2nd toe, personality disorder, bipolar 1 disorder, PTSD who we have been asked to see in surgical consultation for infected diabetic foot wound, suspected osteomyelitis. Of note, patient is not a great historian. Patient's father is his POA. Patient 1st noted wound between left 4th and 5th toes about 2 weeks ago. At this time he noted oozing from the area, which has since resolved. Patient resides at an assisted living home, and he states that they have been applying Neosporin to the area. Patient has history of partial amputation of his left 2nd toe at the level of midportion of middle phalanx. He states that this was done by Dr. Singh, however, no records of this in the chart. Patient also has callused ulcer directly underneath left 1st MTP joint, which seems to be healing. Right calf also has superficial ulcer. Patient has been ambulating without difficulty. He states the wound is not necessarily painful, however it is pruritic. Patient has not noted any fevers or other systemic symptoms. He presented to [place] ED yesterday, and x-ray of the left foot demonstrated multiple areas of cortical destruction in the 4th proximal and middle phalanx which can be seen in osteomyelitis. No acute fracture dislocation. Persistent dorsal dislocation of 4th PIP joint. Previous foot x-ray on 11/29/2024 did not demonstrate any of these changes, aside from dorsal dislocation of 4th PIP joint. WBC count has remained normal. 8.4 today. A1c yesterday 6.0. He states that the nursing staff at his assisted living home manage his diabetes medications. [facility] Past Medical History Medical History (Updated 12/29/24 @ 00:02 by Grey Damian) Hypothyroidism Diet-controlled type 2 diabetes mellitus Posttraumatic stress disorder Personality disorder Bipolar 1 disorder Surgical History Surgical History (Updated 12/28/24 @ 22:03 by Khloe Young PA-C) History of amputation of left second toe Social History Social History (Updated 12/28/24 @ 22:04 by Khloe Young PA-C) Social History: Surrogate medical decision maker: Rojelio Rondon, father. Code status: Full code. Smoking status: Never smoker Alcohol intake: never Substance use: never Substance use type: does not use Do You Feel Safe in your Home?: Yes Lack of Transportation: No Lack of Food: Never True Current Housing: I Have Housing Concerned About Future Housing: No Difficulty Paying Gas/Electric Bills: No Difficulty Paying for Meds: No Currently Unemployed: No Education: Don't Know Difficulty w/ Childcare or Family Care: No Spiritual care concerns: No Meds Home Medications and Allergies Home Medications ?Medication ?Instructions ?Recorded ?Confirmed ?Type acetaminophen 325 mg tablet 325 mg PO PRN PRN fever or pain 12/28/24 12/28/24 History aripiprazole 10 mg tablet 10 mg PO DAILY 12/28/24 12/28/24 History buspirone 10 mg tablet 10 mg PO BID 12/28/24 12/28/24 History citalopram 20 mg tablet 20 mg PO DAILY 12/28/24 12/28/24 History diphenhydramine HCl 25 mg capsule 25 mg PO Q6H PRN itching 12/28/24 12/28/24 History (Banophen) ferrous sulfate 325 mg (65 mg 325 mg PO DAILY 12/28/24 12/28/24 History iron) tablet (FeroSul) fluticasone propionate 50 1 spray intranasal BID 12/28/24 12/28/24 History mcg/actuation nasal spray,suspension furosemide 20 mg tablet 20 mg PO DAILY 12/28/24 12/28/24 History levothyroxine 200 mcg tablet 200 mcg PO DAILY@0630 12/28/24 12/28/24 History terbinafine HCl 250 mg tablet 250 mg PO DAILY 12/28/24 12/28/24 History Allergies Allergy/AdvReac Type Severity Reaction Status Date / Time bee venom protein (honey bee) Allergy Unknown Verified 12/28/24 11:43 Penicillins Allergy Unknown Verified 12/28/24 11:43 Sulfa (Sulfonamide Allergy Unknown Verified 12/28/24 11:43 Antibiotics) sulfamethoxazole (From Allergy Unknown Verified 12/28/24 11:43 Bactrim) trimethoprim (From Bactrim) Allergy Unknown Verified 12/28/24 11:43 Vital Signs Vital Signs - 24 hr 12/28/24 16:54 12/28/24 19:47 12/28/24 20:00 Temperature 97.7 F 96.9 F L Pulse Rate 80 88 Respiratory Rate 12 12 Blood Pressure 133/70 140/72 Pulse Oximetry 100 100 Oxygen Delivery Room Air 12/29/24 04:25 12/29/24 07:30 Temperature 96.8 F L Pulse Rate 117 H Respiratory Rate 14 Blood Pressure 109/61 Pulse Oximetry 96 Oxygen Delivery Room Air Exam 2 Const: General: comfortable and no acute distress Eyes: General: appearance normal, both eyes and all related structures Neck: Neck: supple Resp: Effort & Inspection: normal respiratory effort Skin: General skin exam: normal color Extrem: Ankle/foot/toe images: 1. Healing callused wound with small area of soft tissue in the center 2. Bleeding superficial ulcer to right m edial calf. 3. Area of skin breakdown to interdigita l space between 4th and 5th toes. No tracking. No exposed bone. No tenderness to palpation. No purulence expressed. Other: Edema and erythema present to entirety of left foot. Superficial skin changes present, likely from blood stasis. L 2nd toe partial amputation present. Difficult to palpate distal pulses bilaterally. Sensation intact. Psych: Mental Status: mental status grossly normal Results Labs 12/29/24 05:11 12/29/24 05:11 Labs: Abnormal lab results 12/28/24 12/28/24 12/29/24 Range/Units 17:21 19:44 05:11 RBC 4.28 L (4.6-6.20) M/mm3 Hgb 12.1 L (14.0-18.0) g/dL Hct 36.7 L (42.0-52.0) % RDW 16.0 H (11.5-14.5) % Plt Count 99 L (150-375) k/mm3 MPV 12.2 H (7.4-10.4) fl Sodium 132 L (137-145) mmol/L Glucose 197 H (65-110) mg/dL POC Capillary Glucose 172 H 117 H (65-105) mg/dl Calcium 7.1 L (8.4-10.2) mg/dL TSH (Reflex) 11.200 H (0.465-4.68) uIU/mL Total T3 0.75 L (0.82-1.58) NG/ML 12/29/24 Range/Units 08:21 RBC (4.6-6.20) M/mm3 Hgb (14.0-18.0) g/dL Hct (42.0-52.0) % RDW (11.5-14.5) % Plt Count (150-375) k/mm3 MPV (7.4-10.4) fl Sodium (137-145) mmol/L Glucose (65-110) mg/dL POC Capillary Glucose 184 H (65-105) mg/dl Calcium (8.4-10.2) mg/dL TSH (Reflex) (0.465-4.68) uIU/mL Total T3 (0.82-1.58) NG/ML Diabetes panel 12/29/24 Range/Units 05:11 Sodium 132 L (137-145) mmol/L Potassium 3.5 (3.4-5.0) mmol/L Chloride 98 (98-107) mmol/L Carbon Dioxide 27 (22-30) mmol/L BUN 13 (9-20) mg/dL Creatinine 1.11 (0.7-1.3) mg/dL Glucose 197 H (65-110) mg/dL Calcium 7.1 L (8.4-10.2) mg/dL Calcium panel 12/29/24 Range/Units 05:11 Calcium 7.1 L (8.4-10.2) mg/dL Pituitary panel 12/29/24 Range/Units 05:11 Sodium 132 L (137-145) mmol/L Potassium 3.5 (3.4-5.0) mmol/L Chloride 98 (98-107) mmol/L Carbon Dioxide 27 (22-30) mmol/L BUN 13 (9-20) mg/dL Creatinine 1.11 (0.7-1.3) mg/dL Glucose 197 H (65-110) mg/dL Calcium 7.1 L (8.4-10.2) mg/dL Total T3 0.75 L (0.82-1.58) NG/ML Adrenal panel 12/29/24 Range/Units 05:11 Sodium 132 L (137-145) mmol/L Potassium 3.5 (3.4-5.0) mmol/L Chloride 98 (98-107) mmol/L Carbon Dioxide 27 (22-30) mmol/L BUN 13 (9-20) mg/dL Creatinine 1.11 (0.7-1.3) mg/dL Glucose 197 H (65-110) mg/dL Calcium 7.1 L (8.4-10.2) mg/dL All other labs normal.
[2024-12-29 14:00] VITALS: BP 122/70; PULSE 85; RESP 18; TEMP 36.7; O2SAT 99
[2024-12-29] MEDS: levoFLOXacin 750 MG/D5W 150 ML 750 MG/150 ML BAG 100 MG IVPB (14:04)
[2024-12-29] MEDS: FLUTICASONE PROPIONATE 0.05% NA SPR 16 GM BTL (*BKC) 1 SPRAY NASAL (17:25)
[2024-12-29 19:40] VITALS: BP 115/72; PULSE 80; RESP 17; TEMP 36.8; O2SAT 100
[2024-12-30 03:30] LABS: Estimated CRCL calculation 99 ml/min; Estimated Glomerular Filt Rate > 60
[2024-12-30 04:39] VITALS: BP 107/42; PULSE 71; RESP 17; TEMP 36.5; O2SAT 97
[2024-12-30] MEDS: VANCOMYCIN 1,500 MG/NS 500 ML 1,500 MG/500 ML BAG 250 MG IVPB ×2 (04:46→15:18)
[2024-12-30] MEDS: LEVOTHYROXINE SODIUM 100 MCG TABLET 200 MCG PO (06:17)
[2024-12-30] MEDS: FLUTICASONE PROPIONATE 0.05% NA SPR 16 GM BTL (*BKC) 1 SPRAY NASAL ×2 (08:27→16:47)
[2024-12-30] MEDS: FERROUS SULFATE 325 MG TABLET DR PO (08:27)
[2024-12-30] MEDS: CITALOPRAM HYDROBROMIDE 20 MG TABLET PO (08:27)
[2024-12-30] MEDS: FUROSEMIDE 20 MG TABLET PO (08:27)
[2024-12-30 08:53] LABS: Hematocrit 34.1 % (42.0-52.0); Hemoglobin 10.9 g/dL (14.0-18.0); Immature Granulocyte Percent A 0.6 % (0-0.5); Immature Platelet Fraction Pct 7.6 % (0.9-11.2); Lymphocytes Absolute Auto 0.48 K/mm3 (0.9-3.2); Mean Corpuscular HGB Conc 32.0 g/dl (32-36); Mean Corpuscular Hemoglobin 27.9 pg (26-34); Mean Corpuscular Volume 87.4 fl (80-100); Nucleated Red Blood Cells Absolute Auto 0.000 K/mm3 (0.0-0.012); Nucleated Red Blood Cells Perc 0.0 % (0.0-0.2); Platelet Count Result 80 k/mm3 (150-375); Red Blood Count 3.90 M/mm3 (4.6-6.20); White Blood Count 4.9 K/mm3 (4.5-10.0)
[2024-12-30 08:57] LABS: Alanine Aminotransferase 11 U/L (6-50); Albumin Level 3.2 g/dL (3.5-5.1); Alkaline Phosphatase 79 U/L (38-126); Anion Gap 6 mmol/L (4-12); Aspartate Amino Transferase 20 U/L (17-59); Bilirubin,Total 0.5 mg/dL (0.2-1.3); Blood Urea Nitrogen 14 mg/dL (9-20); Calcium 6.7 mg/dL (8.4-10.2); Carbon Dioxide 23 mmol/L (22-30); Chloride 102 mmol/L (98-107); Glucose 217 mg/dL (65-110); Magnesium 1.8 mg/dL (1.6-2.3); Potassium 3.7 mmol/L (3.4-5.0); Sodium 131 mmol/L (137-145); Total Protein 6.4 g/dL (6.3-8.2)
--- NOTE | 2024-12-30 09:31 | P.PNGS_ITS ---
Progress Note: A&P Assessment and Plan (1) Diabetic infection of left foot: Code(s): E11.628 - Type 2 diabetes mellitus with other skin complications; L08.9 - Local infection of the skin and subcutaneous tissue, unspecified Status: Acute Assessment and Plan: Patient is doing well today. Status unchanged from yesterday. No acute events overnight. Afebrile. Hematology labs still pending. Chemistry normal. MRI scheduled for today. Will plan to follow up with results. Likely, no immediate surgery today, but will discuss with Dr. Mcgovern to confirm. (2) Osteomyelitis of fourth toe of left foot: Code(s): M86.9 - Osteomyelitis, unspecified Status: Acute Assessment and Plan: No exposed bone on physical exam. See above for plan. (3) Diet-controlled type 2 diabetes mellitus: Code(s): E11.9 - Type 2 diabetes mellitus without complications Status: Acute Assessment and Plan: Continue per hospitalist recs. Plan Discussed patient's case and plan of care with Dr. Mcgovern. Subjective Subjective Date/Time Seen: 12/30/24 09:31 Patient reports: no new complaints, tolerating a regular diet, bowel movement and afebrile Interval history: Patient is doing well today. Sitting up on side of bed. He is scheduled for an MRI of his left foot today. Exam Const: General: comfortable and no acute distress Extrem: Other: Edema and erythema present to entirety of left foot. Erythema slightly decreased from yesterday, but pitting edema up through lower extremities slightly increased. Superficial skin changes present, likely from blood stasis. L 2nd toe partial amputation present. Difficult to palpate distal pulses bilaterally. Sensation intact. Objective Data Vital Signs Vital Signs: Vital Signs - 24 hr 12/29/24 14:00 12/29/24 19:40 12/29/24 20:00 Temperature 98.1 F 98.2 F Pulse Rate 85 80 Respiratory Rate 18 17 Blood Pressure 122/70 115/72 Pulse Oximetry 99 100 Oxygen Delivery Room Air 12/30/24 04:39 Temperature 97.7 F Pulse Rate 71 Respiratory Rate 17 Blood Pressure 107/42 L Pulse Oximetry 97 Oxygen Delivery Intake/Output Intake/Output: Intake & Output 12/27/24 12/28/24 12/29/24 12/30/24 23:59 23:59 23:59 23:59 Intake Total 1270 3030 470 Balance 1270 3030 470 Meds/Results Medications: Active Medications Generic Name Dose Route Start Last Admin Trade Name Freq PRN Reason Stop Dose Admin Acetaminophen 650 mg 12/28/24 17:23 Acetaminophen 325 Mg Tablet PO Q4H PRN Mild Pain (1-3) or Fever Aripiprazole 10 mg 12/29/24 09:00 12/30/24 08:27 Aripiprazole 10 Mg Tablet PO 10 mg DAILY ANTONI Administration Buspirone HCl 10 mg 12/28/24 22:15 12/30/24 08:27 Buspirone Hcl 10 Mg Tablet PO 10 mg BID ANTONI Administration Citalopram Hydrobromide 20 mg 12/29/24 09:00 12/30/24 08:27 Citalopram Hydrobromide 20 Mg Tablet PO 20 mg DAILY ANTONI Administration Dextrose 12.5 gm 12/28/24 17:26 Dextrose 50% 25 Gm/50 Ml Syringe IV PUSH PRN PRN Hypoglycemia Protocol Diphenhydramine HCl 25 mg 12/28/24 22:08 Diphenhydramine Hcl Cap 25 Mg Capsule PO Q6H PRN itching Ferrous Sulfate 325 mg 12/29/24 09:00 12/30/24 08:27 Ferrous Sulfate [address] PO 325 mg DAILY ANTONI Administration Fluticasone Propionate 1 spray 12/29/24 09:00 12/30/24 08:27 Fluticasone Propionate 0.05% Na Spr 16 Gm Btl (*Bkc) NASAL 1 spray BID ANTONI Administration Furosemide 20 mg 12/29/24 09:00 12/30/24 08:27 Furosemide 20 Mg Tablet PO 20 mg DAILY ANTONI Administration Glucagon 1 mg 12/28/24 17:26 Glucagon For Inj 1 Mg Vial IM PRN PRN Hypoglycemia Protocol Glucose 15 gm 12/28/24 17:26 Glucose Oral Gel 15 Gm Of Glucse In 37.5 Gm Tube PO PRN PRN Hypoglycemia Protocol Dextrose 1,000 mls @ 100 mls/hr 12/28/24 17:26 Dextrose 5% 1,000 Ml IVPB PRN PRN Hypoglycemia Protocol Levofloxacin/Dextrose 750 mg in 150 mls @ 100 mls/hr 12/29/24 13:00 12/29/24 15:34 Levaquin 750 Mg/D5w 150 Ml IVPB Infused Q24H ANTONI Infusion Vancomycin HCl 1,500 mg in 500 mls @ 250 mls/hr 12/29/24 04:00 12/30/24 04:46 Vancomycin 1,500 Mg/Ns 500 Ml IVPB 250 mls/hr Q12H ANTONI Administration Insulin Aspart 2 - 5 units 12/29/24 08:00 12/30/24 08:28 Insulin Aspart (*Bkc) 100 Units/Ml SUB-Q Not Given TIDWM [facility] Protocol Insulin Aspart 1 - 2 units 12/28/24 21:00 12/29/24 22:46 Insulin Aspart (*Bkc) 100 Units/Ml SUB-Q Not Given HS [facility] Protocol Levothyroxine Sodium 200 mcg 12/29/24 06:30 12/30/24 06:17 Levothyroxine Sodium 100 Mcg Tablet PO 200 mcg DAILY@0630 [facility] Administration Labs Labs: Laboratory Results - last 24 hr 12/29/24 12/29/24 12/29/24 11:22 16:54 19:38 Sodium Potassium Chloride Carbon Dioxide Anion Gap BUN Creatinine Estim Creat Clear Calc Estimated GFR Glucose POC Capillary Glucose 164 H 140 H 137 H Calcium Magnesium Total Bilirubin AST ALT Alkaline Phosphatase Total Protein Albumin Vancomycin Trough 12/30/24 12/30/24 03:08 08:14 Sodium 131 L Potassium 3.7 Chloride 102 Carbon Dioxide 23 Anion Gap 6 BUN 14 Creatinine 1.01 Estim Creat Clear Calc 99 Estimated GFR > 60 Glucose 217 H POC Capillary Glucose 171 H Calcium 6.7 L Magnesium 1.8 Total Bilirubin 0.5 AST 20 ALT 11 Alkaline Phosphatase 79 Total Protein 6.4 Albumin 3.2 L Vancomycin Trough 17.1
[2024-12-30] MEDS: levoFLOXacin 750 MG/D5W 150 ML 750 MG/150 ML BAG 100 MG IVPB (12:21)
--- NOTE | 2024-12-30 12:24 | P.PNIM_ITS ---
Progress Note: A&P Assessment and Plan (1) Osteomyelitis of fourth toe of left foot: Code(s): M86.9 - Osteomyelitis, unspecified Status: Acute Assessment and Plan: * Presenting to hospital for wound on the left toe between the 4th and 5th webspace for approximately 1 week * Foot x-ray: * Multiple areas of cortical destruction in the fourth proximal and middle phalanx which can be seen in osteomyelitis. Clinical correlation is recommended. * No acute fracture or dislocation seen. 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 Chronic degenerative changes. * WBC 4.9, CRP 4.6 * General surgery consulted, appreciate recommendations. * MRI left foot with and without contrast showed: IMPRESSION: 1. 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 2. Osteolysis at the tuft of the third distal phalanx with her edema, enhancement and loss of T1 fat signal consistent with osteomyelitis. 3. Mild marrow edema and enhancement along the margin of an osteotomy of the second middle phalanx which is equivocal for residual reactive change versus early osteomyelitis. 4. Chronic first interphalangeal arthrodesis and chronic osteotomy at the first distal phalanx without evident ongoing osteomyelitis is or marrow signal changes to suggest osteomyelitis. * Levofloxacin 750 mg IVPB daily and Vancomycin 1,500 mg IVPB q12. * Wound care consult, appreciate recommendations. * Blood cultures no growth to date. (2) Diabetic infection of left foot: Code(s): E11.628 - Type 2 diabetes mellitus with other skin complications; L08.9 - Local infection of the skin and subcutaneous tissue, unspecified Status: Acute Assessment and Plan: * See above (3) Diet-controlled type 2 diabetes mellitus: Code(s): E11.9 - Type 2 diabetes mellitus without complications Status: Acute Assessment and Plan: * Hypoglycemia protocol * POC blood glucose ACHS * Home medication - none * Correct regimen ordered - SSI, low dose TIDWM and HS * A1C 6.0 (12/28/2024) (4) Hypothyroidism: Code(s): E03.9 - Hypothyroidism, unspecified Status: Acute Assessment and Plan: * Continue levothyroxine Subjective Date/time seen: 12/30/24 12:24 Interval history: Patient sitting up on the side of the bed. Patient returned from left foot MRI. Patient denies any pain, shortness of breath, chest pain, nausea, or vomiting. Review of Systems Review of Systems: All systems reviewed & are unremarkable except as noted in HPI and below Exam Const: General: comfortable and no acute distress Resp: Effort & Inspection: normal respiratory effort Auscultation: clear to auscultation bilaterally Cardio: Rate: regular rate Rhythm: regular rhythm GI: GI Palp: Yes Soft to palpation Auscultation: normal bowel sounds Skin: Other: left foot has a 4th to 5th digit web space wound moderately deep with ulceration and erythema of the anterior 1/3 distal left foot; ball of the foot left side has a healing wound. There is shallow ulceration on the right medial calf as well. Both legs are a bit hyperpigmented likely due to chronic stasis. Neuro: Speech: normal speech Extrem: General: pedal edema bilaterally Psych: Mental Status: mental status grossly normal Affect: normal affect Objective Data Vital Signs Vital Signs: Vital Signs - 24 hr 12/29/24 14:00 12/29/24 19:40 12/29/24 20:00 Temperature 98.1 F 98.2 F Pulse Rate 85 80 Respiratory Rate 18 17 Blood Pressure 122/70 115/72 Pulse Oximetry 99 100 Oxygen Delivery Room Air 12/30/24 04:39 12/30/24 08:30 Temperature 97.7 F Pulse Rate 71 Respiratory Rate 17 Blood Pressure 107/42 L Pulse Oximetry 97 Oxygen Delivery Room Air Intake/Output Intake/Output: Intake & Output 12/27/24 12/28/24 12/29/24 12/30/24 23:59 23:59 23:59 23:59 Intake Total 1270 3030 470 Balance 1270 3030 470 Meds/Results Medications: Active Medications Generic Name Dose Route Start Last Admin Trade Name Freq PRN Reason Stop Dose Admin Acetaminophen 650 mg 12/28/24 17:23 Acetaminophen 325 Mg Tablet PO Q4H PRN Mild Pain (1-3) or Fever Aripiprazole 10 mg 12/29/24 09:00 12/30/24 08:27 Aripiprazole 10 Mg Tablet PO 10 mg DAILY ANTONI Administration Buspirone HCl 10 mg 12/28/24 22:15 12/30/24 08:27 Buspirone Hcl 10 Mg Tablet PO 10 mg BID ANTONI Administration Citalopram Hydrobromide 20 mg 12/29/24 09:00 12/30/24 08:27 Citalopram Hydrobromide 20 Mg Tablet PO 20 mg DAILY ANTONI Administration Dextrose 12.5 gm 12/28/24 17:26 Dextrose 50% 25 Gm/50 Ml Syringe IV PUSH PRN PRN Hypoglycemia Protocol Diphenhydramine HCl 25 mg 12/28/24 22:08 Diphenhydramine Hcl Cap 25 Mg Capsule PO Q6H PRN itching Ferrous Sulfate 325 mg 12/29/24 09:00 12/30/24 08:27 Ferrous Sulfate [address] PO 325 mg DAILY ANTONI Administration Fluticasone Propionate 1 spray 12/29/24 09:00 12/30/24 08:27 Fluticasone Propionate 0.05% Na Spr 16 Gm Btl (*Bkc) NASAL 1 spray BID ANTONI Administration Furosemide 20 mg 12/29/24 09:00 12/30/24 08:27 Furosemide 20 Mg Tablet PO 20 mg DAILY ANTONI Administration Glucagon 1 mg 12/28/24 17:26 Glucagon For Inj 1 Mg Vial IM PRN PRN Hypoglycemia Protocol Glucose 15 gm 12/28/24 17:26 Glucose Oral Gel 15 Gm Of Glucse In 37.5 Gm Tube PO PRN PRN Hypoglycemia Protocol Dextrose 1,000 mls @ 100 mls/hr 12/28/24 17:26 Dextrose 5% 1,000 Ml IVPB PRN PRN Hypoglycemia Protocol Levofloxacin/Dextrose 750 mg in 150 mls @ 100 mls/hr 12/29/24 13:00 12/29/24 15:34 Levaquin 750 Mg/D5w 150 Ml IVPB Infused Q24H ANTONI Infusion Vancomycin HCl 1,500 mg in 500 mls @ 250 mls/hr 12/29/24 04:00 12/30/24 04:46 Vancomycin 1,500 Mg/Ns 500 Ml IVPB 250 mls/hr Q12H ANTONI Administration Insulin Aspart 2 - 5 units 12/29/24 08:00 12/30/24 12:21 Insulin Aspart (*Bkc) 100 Units/Ml SUB-Q Not Given TIDWM ANTONI Protocol Insulin Aspart 1 - 2 units 12/28/24 21:00 12/29/24 22:46 Insulin Aspart (*Bkc) 100 Units/Ml SUB-Q Not Given HS ANTONI Protocol Levothyroxine Sodium 200 mcg 12/29/24 06:30 12/30/24 06:17 Levothyroxine Sodium 100 Mcg Tablet PO 200 mcg DAILY@0630 [facility] Administration Labs Labs: Laboratory Results - last 24 hr 12/29/24 12/29/24 12/30/24 16:54 19:38 03:07 WBC 4.9 RBC 3.90 L Hgb 10.9 L Hct 34.1 L MCV 87.4 MCH 27.9 MCHC 32.0 RDW 16.4 H Plt Count 80 L MPV 12.1 H Immature Gran % (Auto) 0.6 H Neut % (Auto) 81.6 H Lymph % (Auto) 9.8 L [place] % (Auto) 8.0 Eos % (Auto) 0.0 Baso % (Auto) 0.0 L Lymph # (Auto) 0.48 L [place] # (Auto) 0.4 Eos # (Auto) 0.0 Baso # (Auto) 0.0 Abs Immat Gran (auto) 0.03 Absolute Neuts (auto) 4.0 Absolute Nucleated RBC 0.000 Nucleated RBC % 0.0 % Immature Plt Fraction 7.6 Sodium Potassium Chloride Carbon Dioxide Anion Gap BUN Creatinine Estim Creat Clear Calc Estimated GFR Glucose POC Capillary Glucose 140 H 137 H Calcium Magnesium Total Bilirubin AST ALT Alkaline Phosphatase Total Protein Albumin Vancomycin Trough 12/30/24 12/30/24 12/30/24 03:08 08:14 11:58 WBC RBC Hgb Hct MCV MCH MCHC RDW Plt Count MPV Immature Gran % (Auto) Neut % (Auto) Lymph % (Auto) [place] % (Auto) Eos % (Auto) Baso % (Auto) Lymph # (Auto) [place] # (Auto) Eos # (Auto) Baso # (Auto) Abs Immat Gran (auto) Absolute Neuts (auto) Absolute Nucleated RBC Nucleated RBC % % Immature Plt Fraction Sodium 131 L Potassium 3.7 Chloride 102 Carbon Dioxide 23 Anion Gap 6 BUN 14 Creatinine 1.01 Estim Creat Clear Calc 99 Estimated GFR > 60 Glucose 217 H POC Capillary Glucose 171 H 157 H Calcium 6.7 L Magnesium 1.8 Total Bilirubin 0.5 AST 20 ALT 11 Alkaline Phosphatase 79 Total Protein 6.4 Albumin 3.2 L Vancomycin Trough 17.1 Quality VTE Prophylaxis VTE prophylaxis: mechanical ordered
[2024-12-30 14:00] VITALS: BP 137/73; PULSE 85; RESP 18; TEMP 35.8; O2SAT 100
[2024-12-30 22:00] VITALS: BP 117/76; PULSE 74; RESP 14; TEMP 36.4; O2SAT 99
[2024-12-31] MEDS: VANCOMYCIN 1,500 MG/NS 500 ML 1,500 MG/500 ML BAG 250 MG IVPB (03:12)
[2024-12-31 06:00] VITALS: BP 130/78; PULSE 74; RESP 16; TEMP 36.6; O2SAT 99
[2024-12-31] MEDS: LEVOTHYROXINE SODIUM 100 MCG TABLET 200 MCG PO (06:11)
[2024-12-31 06:34] LABS: Hematocrit 37.5 % (42.0-52.0); Hemoglobin 11.8 g/dL (14.0-18.0); Immature Granulocyte Percent A 0.7 % (0-0.5); Immature Platelet Fraction Pct 7.4 % (0.9-11.2); Lymphocytes Absolute Auto 0.57 K/mm3 (0.9-3.2); Mean Corpuscular HGB Conc 31.5 g/dl (32-36); Mean Corpuscular Hemoglobin 27.8 pg (26-34); Mean Corpuscular Volume 88.2 fl (80-100); Nucleated Red Blood Cells Absolute Auto 0.000 K/mm3 (0.0-0.012); Nucleated Red Blood Cells Perc 0.0 % (0.0-0.2); Platelet Count Result 83 k/mm3 (150-375); Red Blood Count 4.25 M/mm3 (4.6-6.20); White Blood Count 4.1 K/mm3 (4.5-10.0)
[2024-12-31 06:56] LABS: Alanine Aminotransferase 11 U/L (6-50); Albumin Level 3.7 g/dL (3.5-5.1); Alkaline Phosphatase 82 U/L (38-126); Anion Gap 6 mmol/L (4-12); Aspartate Amino Transferase 24 U/L (17-59); Bilirubin,Total 0.6 mg/dL (0.2-1.3); Blood Urea Nitrogen 13 mg/dL (9-20); Calcium 6.9 mg/dL (8.4-10.2); Carbon Dioxide 27 mmol/L (22-30); Chloride 102 mmol/L (98-107); Estimated CRCL calculation 103 ml/min; Estimated Glomerular Filt Rate > 60; Glucose 151 mg/dL (65-110); Magnesium 2.0 mg/dL (1.6-2.3); Potassium 4.1 mmol/L (3.4-5.0); Sodium 135 mmol/L (137-145); Total Protein 7.1 g/dL (6.3-8.2)
--- NOTE | 2024-12-31 07:23 | P.PNIM_ITS ---
Progress Note: A&P Assessment and Plan (1) Osteomyelitis of fourth toe of left foot: Code(s): M86.9 - Osteomyelitis, unspecified Status: Acute Assessment and Plan: * Presenting to hospital for wound on the left toe between the 4th and 5th webspace for approximately 1 week * Foot x-ray: * Multiple areas of cortical destruction in the fourth proximal and middle phalanx which can be seen in osteomyelitis. Clinical correlation is recommended. * No acute fracture or dislocation seen. 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 Chronic degenerative changes. * WBC 4.9, CRP 4.6 * General surgery consulted, appreciate recommendations. * MRI left foot with and without contrast showed: IMPRESSION: 1. 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 2. Osteolysis at the tuft of the third distal phalanx with her edema, enhancement and loss of T1 fat signal consistent with osteomyelitis. 3. Mild marrow edema and enhancement along the margin of an osteotomy of the second middle phalanx which is equivocal for residual reactive change versus early osteomyelitis. 4. Chronic first interphalangeal arthrodesis and chronic osteotomy at the first distal phalanx without evident ongoing osteomyelitis is or marrow signal changes to suggest osteomyelitis. * Levofloxacin 750 mg IVPB daily and Vancomycin 1,500 mg IVPB q12. * Wound care consult, appreciate recommendations. * Blood cultures no growth to date. (2) Diabetic infection of left foot: Code(s): E11.628 - Type 2 diabetes mellitus with other skin complications; L08.9 - Local infection of the skin and subcutaneous tissue, unspecified Status: Acute Assessment and Plan: * See above (3) Diet-controlled type 2 diabetes mellitus: Code(s): E11.9 - Type 2 diabetes mellitus without complications Status: Acute Assessment and Plan: * Hypoglycemia protocol * POC blood glucose ACHS * Home medication - none * Correct regimen ordered - SSI, low dose TIDWM and HS * A1C 6.0 (12/28/2024) (4) Hypothyroidism: Code(s): E03.9 - Hypothyroidism, unspecified Status: Acute Assessment and Plan: -Continue levothyroxine Subjective Date/time seen: 12/31/24 07:23 Objective Data Vital Signs Vital Signs: Vital Signs - 24 hr 12/30/24 08:30 12/30/24 14:00 12/30/24 20:00 Temperature 96.5 F L Pulse Rate 85 Respiratory Rate 18 Blood Pressure 137/73 Pulse Oximetry 100 Oxygen Delivery Room Air Room Air 12/30/24 22:00 12/31/24 06:00 Temperature 97.5 F L 98 F Pulse Rate 74 74 Respiratory Rate 14 16 Blood Pressure 117/76 130/78 Pulse Oximetry 99 99 Oxygen Delivery Intake/Output Intake/Output: Intake & Output 12/28/24 12/29/24 12/30/24 12/31/24 23:59 23:59 23:59 23:59 Intake Total 1270 3030 3784 1150 Balance 1270 3030 3784 1150 Meds/Results Medications: Active Medications Generic Name Dose Route Start Last Admin Trade Name Freq PRN Reason Stop Dose Admin Acetaminophen 650 mg 12/28/24 17:23 Acetaminophen 325 Mg Tablet PO Q4H PRN Mild Pain (1-3) or Fever Aripiprazole 10 mg 12/29/24 09:00 12/30/24 08:27 Aripiprazole 10 Mg Tablet PO 10 mg DAILY ANTONI Administration Buspirone HCl 10 mg 12/28/24 22:15 12/30/24 16:47 Buspirone Hcl 10 Mg Tablet PO 10 mg BID ANTONI Administration Citalopram Hydrobromide 20 mg 12/29/24 09:00 12/30/24 08:27 Citalopram Hydrobromide 20 Mg Tablet PO 20 mg DAILY ANTONI Administration Dextrose 12.5 gm 12/28/24 17:26 Dextrose 50% 25 Gm/50 Ml Syringe IV PUSH PRN PRN Hypoglycemia Protocol Diphenhydramine HCl 25 mg 12/28/24 22:08 Diphenhydramine Hcl Cap 25 Mg Capsule PO Q6H PRN itching Ferrous Sulfate 325 mg 12/29/24 09:00 12/30/24 08:27 Ferrous Sulfate [address] PO 325 mg DAILY ANTONI Administration Fluticasone Propionate 1 spray 12/29/24 09:00 12/30/24 16:47 Fluticasone Propionate 0.05% Na Spr 16 Gm Btl (*Bkc) NASAL 1 spray BID ANTONI Administration Furosemide 20 mg 12/29/24 09:00 12/30/24 08:27 Furosemide 20 Mg Tablet PO 20 mg DAILY ANTONI Administration Glucagon 1 mg 12/28/24 17:26 Glucagon For Inj 1 Mg Vial IM PRN PRN Hypoglycemia Protocol Glucose 15 gm 12/28/24 17:26 Glucose Oral Gel 15 Gm Of Glucse In 37.5 Gm Tube PO PRN PRN Hypoglycemia Protocol Dextrose 1,000 mls @ 100 mls/hr 12/28/24 17:26 Dextrose 5% 1,000 Ml IVPB PRN PRN Hypoglycemia Protocol Levofloxacin/Dextrose 750 mg in 150 mls @ 100 mls/hr 12/29/24 13:00 12/30/24 12:21 Levaquin 750 Mg/D5w 150 Ml IVPB 100 mls/hr Q24H ANTONI Administration Vancomycin HCl 1,500 mg in 500 mls @ 250 mls/hr 12/29/24 04:00 12/31/24 03:12 Vancomycin 1,500 Mg/Ns 500 Ml IVPB 250 mls/hr Q12H ANTONI Administration Insulin Aspart 2 - 5 units 12/29/24 08:00 12/30/24 17:22 Insulin Aspart (*Bkc) 100 Units/Ml SUB-Q Not Given TIDWM ANTONI Protocol Insulin Aspart 1 - 2 units 12/28/24 21:00 12/31/24 03:11 Insulin Aspart (*Bkc) 100 Units/Ml SUB-Q Not Given HS [facility] Protocol Levothyroxine Sodium 200 mcg 12/29/24 06:30 12/31/24 06:11 Levothyroxine Sodium 100 Mcg Tablet PO 200 mcg DAILY@0630 ANTONI Administration Radiology Results: ITS Impressions Foot MRI 12/30/24 14:58 IMPRESSION: 1. 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 2. Osteolysis at the tuft of the third distal phalanx with her edema, enhancement and loss of T1 fat signal consistent with osteomyelitis. 3. Mild marrow edema and enhancement along the margin of an osteotomy of the second middle phalanx which is equivocal for residual reactive change versus early osteomyelitis. 4. Chronic first interphalangeal arthrodesis and chronic osteotomy at the first distal phalanx without evident ongoing osteomyelitis is or marrow signal changes to suggest osteomyelitis. Labs Labs: Laboratory Results - last 24 hr 12/30/24 12/30/24 12/30/24 03:07 03:08 08:14 WBC 4.9 RBC 3.90 L Hgb 10.9 L Hct 34.1 L MCV 87.4 MCH 27.9 MCHC 32.0 RDW 16.4 H Plt Count 80 L MPV 12.1 H Immature Gran % (Auto) 0.6 H Neut % (Auto) 81.6 H Lymph % (Auto) 9.8 L [place] % (Auto) 8.0 Eos % (Auto) 0.0 Baso % (Auto) 0.0 L Lymph # (Auto) 0.48 L [place] # (Auto) 0.4 Eos # (Auto) 0.0 Baso # (Auto) 0.0 Abs Immat Gran (auto) 0.03 Absolute Neuts (auto) 4.0 Absolute Nucleated RBC 0.000 Nucleated RBC % 0.0 % Immature Plt Fraction 7.6 Sodium 131 L Potassium 3.7 Chloride 102 Carbon Dioxide 23 Anion Gap 6 BUN 14 Creatinine 1.01 Estim Creat Clear Calc 99 Estimated GFR > 60 Glucose 217 H POC Capillary Glucose 171 H Calcium 6.7 L Magnesium 1.8 Total Bilirubin 0.5 AST 20 ALT 11 Alkaline Phosphatase 79 Total Protein 6.4 Albumin 3.2 L 12/30/24 12/30/24 12/30/24 11:58 16:58 21:54 WBC RBC Hgb Hct MCV MCH MCHC RDW Plt Count MPV Immature Gran % (Auto) Neut % (Auto) Lymph % (Auto) [place] % (Auto) Eos % (Auto) Baso % (Auto) Lymph # (Auto) [place] # (Auto) Eos # (Auto) Baso # (Auto) Abs Immat Gran (auto) Absolute Neuts (auto) Absolute Nucleated RBC Nucleated RBC % % Immature Plt Fraction Sodium Potassium Chloride Carbon Dioxide Anion Gap BUN Creatinine Estim Creat Clear Calc Estimated GFR Glucose POC Capillary Glucose 157 H 137 H 129 H Calcium Magnesium Total Bilirubin AST ALT Alkaline Phosphatase Total Protein Albumin 12/31/24 06:14 WBC RBC Hgb Hct MCV MCH MCHC RDW Plt Count MPV Immature Gran % (Auto) Neut % (Auto) Lymph % (Auto) [place] % (Auto) Eos % (Auto) Baso % (Auto) Lymph # (Auto) [place] # (Auto) Eos # (Auto) Baso # (Auto) Abs Immat Gran (auto) Absolute Neuts (auto) Absolute Nucleated RBC Nucleated RBC % % Immature Plt Fraction Sodium 135 L Potassium 4.1 Chloride 102 Carbon Dioxide 27 Anion Gap 6 BUN 13 Creatinine 0.96 Estim Creat Clear Calc 103 Estimated GFR > 60 Glucose 151 H POC Capillary Glucose Calcium 6.9 L Magnesium 2.0 Total Bilirubin 0.6 AST 24 ALT 11 Alkaline Phosphatase 82 Total Protein 7.1 Albumin 3.7
[2024-12-31 08:24] LABS: Anisocytosis 1+; Schistocytes None Seen
[2024-12-31] MEDS: FUROSEMIDE 20 MG TABLET PO (09:14)
[2024-12-31] MEDS: CITALOPRAM HYDROBROMIDE 20 MG TABLET PO (09:14)
[2024-12-31] MEDS: FERROUS SULFATE 325 MG TABLET DR PO (09:14)
[2024-12-31] MEDS: FLUTICASONE PROPIONATE 0.05% NA SPR 16 GM BTL (*BKC) 1 SPRAY NASAL (09:14)
--- NOTE | 2024-12-31 09:38 | PM.PNGS ---
Progress Note: A&P Assessment and Plan (1) Diabetic infection of left foot: Code(s): E11.628 - Type 2 diabetes mellitus with other skin complications; L08.9 - Local infection of the skin and subcutaneous tissue, unspecified Status: Acute Assessment and Plan: Reviewed MRI. Multiple digits involved, which seems more like chronic findings rather than an acute osteomyelitis picture. Would recommend continued antibiotics for 2 weeks. Continue local wound care. Discussed amputation as an option or possibility, which would most likely require a forefoot amputation, but patient re-iterates that he does not want an amputation. OK to discharge. F/u in 2 weeks. (2) Osteomyelitis of fourth toe of left foot: Code(s): M86.9 - Osteomyelitis, unspecified Status: Acute Assessment and Plan: No exposed bone on physical exam. See above for plan. (3) Diet-controlled type 2 diabetes mellitus: Code(s): E11.9 - Type 2 diabetes mellitus without complications Status: Acute Assessment and Plan: Continue per hospitalist recs. Subjective Subjective Date/Time Seen: 12/31/24 09:38 Interval history: Patient doing well. He does not want amputation. He says he is feeling better. Exam Extrem: Other: Left foot wounds appear stable. No redness or tenderness. Mild edema. Objective Data Vital Signs Vital Signs: Vital Signs - 24 hr 12/30/24 14:00 12/30/24 20:00 12/30/24 22:00 Temperature 96.5 F L 97.5 F L Pulse Rate 85 74 Respiratory Rate 18 14 Blood Pressure 137/73 117/76 Pulse Oximetry 100 99 Oxygen Delivery Room Air 12/31/24 06:00 Temperature 98 F Pulse Rate 74 Respiratory Rate 16 Blood Pressure 130/78 Pulse Oximetry 99 Oxygen Delivery Intake/Output Intake/Output: Intake & Output 12/28/24 12/29/24 12/30/24 12/31/24 23:59 23:59 23:59 23:59 Intake Total 1270 3030 3784 1390 Balance 1270 3030 3784 1390 Meds/Results Medications: Active Medications Generic Name Dose Route Start Last Admin Trade Name Freq PRN Reason Stop Dose Admin Acetaminophen 650 mg 12/28/24 17:23 Acetaminophen 325 Mg Tablet PO Q4H PRN Mild Pain (1-3) or Fever Aripiprazole 10 mg 12/29/24 09:00 12/31/24 09:14 Aripiprazole 10 Mg Tablet PO 10 mg DAILY ANTONI Administration Buspirone HCl 10 mg 12/28/24 22:15 12/31/24 09:14 Buspirone Hcl 10 Mg Tablet PO 10 mg BID ANTONI Administration Citalopram Hydrobromide 20 mg 12/29/24 09:00 12/31/24 09:14 Citalopram Hydrobromide 20 Mg Tablet PO 20 mg DAILY ANTONI Administration Dextrose 12.5 gm 12/28/24 17:26 Dextrose 50% 25 Gm/50 Ml Syringe IV PUSH PRN PRN Hypoglycemia Protocol Diphenhydramine HCl 25 mg 12/28/24 22:08 Diphenhydramine Hcl Cap 25 Mg Capsule PO Q6H PRN itching Ferrous Sulfate 325 mg 12/29/24 09:00 12/31/24 09:14 Ferrous Sulfate [address] PO 325 mg DAILY ANTONI Administration Fluticasone Propionate 1 spray 12/29/24 09:00 12/31/24 09:14 Fluticasone Propionate 0.05% Na Spr 16 Gm Btl (*Bkc) NASAL 1 spray BID ANTONI Administration Furosemide 20 mg 12/29/24 09:00 12/31/24 09:14 Furosemide 20 Mg Tablet PO 20 mg DAILY ANTONI Administration Glucagon 1 mg 12/28/24 17:26 Glucagon For Inj 1 Mg Vial IM PRN PRN Hypoglycemia Protocol Glucose 15 gm 12/28/24 17:26 Glucose Oral Gel 15 Gm Of Glucse In 37.5 Gm Tube PO PRN PRN Hypoglycemia Protocol Dextrose 1,000 mls @ 100 mls/hr 12/28/24 17:26 Dextrose 5% 1,000 Ml IVPB PRN PRN Hypoglycemia Protocol Levofloxacin/Dextrose 750 mg in 150 mls @ 100 mls/hr 12/29/24 13:00 12/30/24 12:21 Levaquin 750 Mg/D5w 150 Ml IVPB 100 mls/hr Q24H ANTONI Administration Vancomycin HCl 1,500 mg in 500 mls @ 250 mls/hr 12/29/24 04:00 12/31/24 03:12 Vancomycin 1,500 Mg/Ns 500 Ml IVPB 250 mls/hr Q12H ANTONI Administration Insulin Aspart 2 - 5 units 12/29/24 08:00 12/31/24 09:16 Insulin Aspart (*Bkc) 100 Units/Ml SUB-Q Not Given TIDWM [facility] Protocol Insulin Aspart 1 - 2 units 12/28/24 21:00 12/31/24 03:11 Insulin Aspart (*Bkc) 100 Units/Ml SUB-Q Not Given HS [facility] Protocol Levothyroxine Sodium 200 mcg 12/29/24 06:30 12/31/24 06:11 Levothyroxine Sodium 100 Mcg Tablet PO 200 mcg DAILY@0630 [facility] Administration Radiology Results: ITS Impressions Foot MRI 12/30/24 14:58 IMPRESSION: 1. 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 2. Osteolysis at the tuft of the third distal phalanx with her edema, enhancement and loss of T1 fat signal consistent with osteomyelitis. 3. Mild marrow edema and enhancement along the margin of an osteotomy of the second middle phalanx which is equivocal for residual reactive change versus early osteomyelitis. 4. Chronic first interphalangeal arthrodesis and chronic osteotomy at the first distal phalanx without evident ongoing osteomyelitis is or marrow signal changes to suggest osteomyelitis. Labs Labs: Laboratory Results - last 24 hr 12/30/24 12/30/24 12/30/24 03:07 11:58 16:58 WBC 4.9 RBC 3.90 L Hgb 10.9 L Hct 34.1 L MCV 87.4 MCH 27.9 MCHC 32.0 RDW 16.4 H Plt Count 80 L MPV 12.1 H Immature Gran % (Auto) 0.6 H Neut % (Auto) 81.6 H Lymph % (Auto) 9.8 L [place] % (Auto) 8.0 Eos % (Auto) 0.0 Baso % (Auto) 0.0 L Lymph # (Auto) 0.48 L [place] # (Auto) 0.4 Eos # (Auto) 0.0 Baso # (Auto) 0.0 Abs Immat Gran (auto) 0.03 Absolute Neuts (auto) 4.0 Absolute Nucleated RBC 0.000 Band Neutrophils % Nucleated RBC % 0.0 Platelet Estimate % Immature Plt Fraction 7.6 Anisocytosis Schistocytes Sodium Potassium Chloride Carbon Dioxide Anion Gap BUN Creatinine Estim Creat Clear Calc Estimated GFR Glucose POC Capillary Glucose 157 H 137 H Calcium Magnesium Total Bilirubin AST ALT Alkaline Phosphatase Total Protein Albumin 12/30/24 12/31/24 12/31/24 21:54 06:14 08:17 WBC 4.1 L RBC 4.25 L Hgb 11.8 L Hct 37.5 L MCV 88.2 MCH 27.8 MCHC 31.5 L RDW 16.1 H Plt Count 83 L MPV 11.2 H Immature Gran % (Auto) 0.7 H Neut % (Auto) 76.9 H Lymph % (Auto) 14.1 L [place] % (Auto) 8.1 Eos % (Auto) 0.0 Baso % (Auto) 0.2 Lymph # (Auto) 0.57 L [place] # (Auto) 0.3 Eos # (Auto) 0.0 Baso # (Auto) 0.0 Abs Immat Gran (auto) 0.03 Absolute Neuts (auto) 3.1 Absolute Nucleated RBC 0.000 Band Neutrophils % Not Reportable Nucleated RBC % 0.0 Platelet Estimate Decreased % Immature Plt Fraction 7.4 Anisocytosis 1+ Schistocytes None seen Sodium 135 L Potassium 4.1 Chloride 102 Carbon Dioxide 27 Anion Gap 6 BUN 13 Creatinine 0.96 Estim Creat Clear Calc 103 Estimated GFR > 60 Glucose 151 H POC Capillary Glucose 129 H 148 H Calcium 6.9 L Magnesium 2.0 Total Bilirubin 0.6 AST 24 ALT 11 Alkaline Phosphatase 82 Total Protein 7.1 Albumin 3.7
--- NOTE | 2024-12-31 10:37 | ECG_ITS ---
Test Date: 2024-12-31 11:44:30 Measurements Intervals [place] Rate: 70 P: 32 [place]: 186 QRS: 35 QRSD: 109 T: 43 QT: 415 QTc: 449 Interpretive Statements SINUS RHYTHM No previous ECG available for comparison Electronically Signed On 01-01-2025 15:50:37 CDT by Hans Gaitan M.D.
[2024-12-31] MEDS: levoFLOXacin 750 MG/D5W 150 ML 750 MG/150 ML BAG 100 MG IVPB (12:03)
[2024-12-31] MEDS: INSULIN ASPART (*BKC) 100 UNITS/ML SUB-Q (12:14)
--- NOTE | 2024-12-31 12:34 | P.DS_ITS ---
DS: Admitting Diagnosis Discharge Date 12/31/24 Admitting Diagnosis L foot osteomyelitis Diabetic infection of left foot T2DM Hypothyroidism Thrombocytopenia DS: Discharge Diagnosis Discharge Diagnosis (1) Osteomyelitis of fourth toe of left foot: Code(s): M86.9 - Osteomyelitis, unspecified Status: Acute (2) Diabetic infection of left foot: Code(s): E11.628 - Type 2 diabetes mellitus with other skin complications; L08.9 - Local infection of the skin and subcutaneous tissue, unspecified Status: Acute (3) Diet-controlled type 2 diabetes mellitus: Code(s): E11.9 - Type 2 diabetes mellitus without complications Status: Acute (4) Hypothyroidism: Code(s): E03.9 - Hypothyroidism, unspecified Status: Acute (5) Thrombocytopenia: Code(s): D69.6 - Thrombocytopenia, unspecified Status: Chronic DS: Summary Hospital Course Reason for hospitalization: L foot osteomyelitis Diabetic infection of left foot T2DM Hypothyroidism Thrombocytopenia Hospital Course: Patient is a 49 yo male with history of T2DM, mood disorder, hypothyroidism, thrombocytopenia, presented to the emergency department with complaints of left foot wound that was slowly worsening. Patient has history of diet-controlled diabetes, Hemoglobin A1c 6.0. Left foot x-ray showed multiple areas of cortical destruction at the 4th proximal and middle phalanx concerning for osteomyelitis. Patient was not septic on admission. Started on IV Levaquin and vancomycin and general surgery was consulted. MRI L foot obtained which showed advanced osteoarthritis involving the majority of the fourth proximal phalanx and the base of the fourth middle phalanx likely secondary to septic arthritis at the proximal interphalangeal joint. Osteolysis at the tuft of the third distal phalanx with her edema, enhancement and loss of T1 fat signal consistent with osteomyelitis. Mild marrow edema and enhancement along the margin of an osteotomy of the second middle phalanx which is equivocal for residual reactive change versus early osteomyelitis. Chronic first interphalangeal arthrodesis and chronic osteotomy at the first distal phalanx without evident ongoing osteomyelitis is or marrow signal changes to suggest osteomyelitis. Discussed findings with general surgery, Dr. Mcgovern who felt changes were mo stly chronic in nature. General surgery offered amputation for definitive management, however patient currently declined. Patient's wound and erythema improved with IV antibiotics. Surgery recommended 2 weeks of PO Levaquin and doxycycline and discharge with outpatient general surgery follow-up in 2 weeks. Discussed Levaquin interaction with Celexa with contact lens inspector pharmacist due to potential for QTc prolongation, however patient's QTc is currently within normal range and pharmacy felt patient was safe to continue this regimen. Patient received local wound care with wound care instructions on discharge. Patient remained afebrile, hemodynamically stable and without leukocytosis. Blood cultured NGTD on discharge. Patient also noted to have thrombocytopenia which appears chronic in nature. Discussed findings with patient and patient's father. He is following with his PCP and hematology and I recommended continued outpatient follow-up. Discharged home in stable condition. Patient was provided with strict return precautions. Status at Discharge Functional status at discharge: independent ambulation Time Spent with Patient Time attestation: Total time spent providing and/or coordinating discharge services: Time spent: Greater than 30 minutes Exam Narrative: General: NAD Eyes: EOMI ENT: neck supple Cardiovascular: Regular rate and rhythm Respiratory: Clear to auscultation, respirations even and unlabored on RA Gastrointestinal: Soft, non tender Genitourinary: no suprapubic tenderness Musculoskeletal: no TTP of left foot Skin: warm, dry. Ulceration of dorsum of the left foot with mild surrounding erythema, clean base without drainage. Venous stasis ulceration of the right distal tibia without surround erythema. Chronic venous skin changes. Neuro: Alert. Psych: Mood appropriate DS: Data Data Completed and Pending Completed studies during hospitalization: XR L foot MRI L foot Labs on day of discharge: Labs from last 24 hours 12/31/24 12/31/24 12/31/24 11:35 08:17 06:14 WBC 4.1 L RBC 4.25 L Hgb 11.8 L Hct 37.5 L MCV 88.2 MCH 27.8 MCHC 31.5 L RDW 16.1 H Plt Count 83 L MPV 11.2 H Immature Gran % (Auto) 0.7 H Neut % (Auto) 76.9 H Lymph % (Auto) 14.1 L [place] % (Auto) 8.1 Eos % (Auto) 0.0 Baso % (Auto) 0.2 Lymph # (Auto) 0.57 L [place] # (Auto) 0.3 Eos # (Auto) 0.0 Baso # (Auto) 0.0 Abs Immat Gran (auto) 0.03 Absolute Neuts (auto) 3.1 Absolute Nucleated RBC 0.000 Band Neutrophils % Not Reportable Nucleated RBC % 0.0 Platelet Estimate Decreased % Immature Plt Fraction 7.4 Anisocytosis 1+ Schistocytes None seen Sodium 135 L Potassium 4.1 Chloride 102 Carbon Dioxide 27 Anion Gap 6 BUN 13 Creatinine 0.96 Estim Creat Clear Calc 103 Estimated GFR > 60 Glucose 151 H POC Capillary Glucose 205 H 148 H Calcium 6.9 L Magnesium 2.0 Total Bilirubin 0.6 AST 24 ALT 11 Alkaline Phosphatase 82 Total Protein 7.1 Albumin 3.7 12/30/24 12/30/24 21:54 16:58 WBC RBC Hgb Hct MCV MCH MCHC RDW Plt Count MPV Immature Gran % (Auto) Neut % (Auto) Lymph % (Auto) [place] % (Auto) Eos % (Auto) Baso % (Auto) Lymph # (Auto) [place] # (Auto) Eos # (Auto) Baso # (Auto) Abs Immat Gran (auto) Absolute Neuts (auto) Absolute Nucleated RBC Band Neutrophils % Nucleated RBC % Platelet Estimate % Immature Plt Fraction Anisocytosis Schistocytes Sodium Potassium Chloride Carbon Dioxide Anion Gap BUN Creatinine Estim Creat Clear Calc Estimated GFR Glucose POC Capillary Glucose 129 H 137 H Calcium Magnesium Total Bilirubin AST ALT Alkaline Phosphatase Total Protein Albumin Discharge Plan Discharge Attending physician on discharge: Penelope Calloway Consulting providers: Cruz Mcgovern; Esteabn Victoria; Beverley Anderson Discharging Clinician: Beverley Anderson Anticipated Discharge Date/Time: 12/31/24 13:51 Patient Disposition: Home Activity: october shower Diet: as tolerated and diabetic Wound Care Instructions: follow printed instructions Discharge Instructions: Continue local wound care as instructed by the wound care team. Follow-up with Dr. Mcgovern's office in 2 weeks. * This will be at the [facility], Wound center to contact patient with appointment. Follow-up with your primary care doctor in 1-2 weeks. Take and finish all antibiotics as instructed, even if you are feeling better. Return to the emergency department if he develops severe pain, persistent high fevers. Call Dr. Mcgovern's with any worsening redness, drainage, or pain. While in the hospital, you blood counts (Hemoglobin and platelets) were low. We recommend you see a logistics assistant as an outpatient if you have not already seen one. Wound care Instructions: Daily cleanse wounds on the left foot with soap and water. apply antifungal barrier cream to maceration between 1st and 2nd toes. apply silver gel to open wounds on the 4th toe and planter foot 1st met head region. Place piece of silver foam on wound beds and cover with 4x4 gauze and secure with tape. Patient Instructions: Antibiotic Form Patient Language: Yoruba Stand Alone Forms: General Discharge Information Follow-up/Referrals: Jorge Winkler MD [Physician] - Call for Appointment (for work-up low platelets and anemia) Daniel,MD Alex [Primary Care Provider] - Call for Appointment (in one week) Cruz Mcgovern DO [Physician] - Call for Appointment (Call for an appointment in 2 weeks. ) Discharge Medications: New levofloxacin 500 mg tablet 500 mg PO DAILY Qty: 14 0RF doxycycline hyclate 100 mg capsule 100 mg PO BID Qty: 28 0RF Continued levothyroxine 200 mcg tablet 200 mcg PO DAILY@0630 aripiprazole 10 mg tablet 10 mg PO DAILY citalopram 20 mg tablet 20 mg PO DAILY ferrous sulfate [FeroSul] 325 mg (65 mg iron) tablet 325 mg PO DAILY furosemide 20 mg tablet 20 mg PO DAILY terbinafine HCl 250 mg tablet 250 mg PO DAILY buspirone 10 mg tablet 10 mg PO BID fluticasone propionate 50 mcg/actuation spray,suspension 1 spray INTRANASAL BID acetaminophen 325 mg tablet 325 mg PO PRN PRN (Reason: fever or pain) diphenhydramine HCl [Banophen] 25 mg capsule 25 mg PO Q6H PRN (Reason: itching) Date of admission: 12/29/24 09:18 Primary Care Provider: DanielAlex Admitting Provider: Gerri Deleon Attending physician on admission: Gerri Deleon Condition: Stable
== END 2024-12-31 14:33 | disposition home or self-care (01) | DRG 638 ==
PROVIDERS: Nurse Practitioner Family; Physician Assistant; Admitting Provider Family Medicine; PCP Family Medicine; Visit Provider Physician Assistant
DX: E11.69 Type 2 diabetes mellitus with other specified complication (principal); M86.672 Other chronic osteomyelitis, left ankle and foot; E11.621 Type 2 diabetes mellitus with foot ulcer; L97.529 Non-pressure chronic ulcer of other part of left foot with unspecified severity; E03.9 Hypothyroidism, unspecified; D69.6 Thrombocytopenia, unspecified; F31.9 Bipolar disorder, unspecified; F60.9 Personality disorder, unspecified; F43.10 Post-traumatic stress disorder, unspecified
CPT/HCPCS: 36415; 73720; 80048; 80053; 80202; 82565; 82948; 83735; 84439; 84443; 84480; 85025; 85027; 85055; 93005; A9270; A9577; G0378; G0379; J0613; J1815; J1956; J3373

== ENCOUNTER 2025-01-12 10:12 | Outpatient (CLI) | payer MEDICARE, MEDICAID, SELFPAY ==
--- NOTE | ~2025-01-12 | XR_ITS ---
EXAMINATION: XR foot LT min 3V DATE: 01/12/2025 10:42 INDICATION: Osteomyelitis TECHNIQUE: Dorsoplantar, two oblique and lateral views of the left foot were obtained. COMPARISON: Radiographs dated 12/28/2024 and MRI dated 12/30/2024 FINDINGS: Again seen is prominent osteolysis involving the distal two thirds of the fourth proximal phalanx and the base of the fourth middle phalanx consistent with septic arthritis at the proximal interphalange al joint and secondary osteomyelitis. Additional cortical erosions along the margins of the tuft of t he third distal phalanx also consistent with osteomyelitis. Osteotomy at the second middle phalanx wi th smooth peripheral margins without definitive cortication equivocal for residual osteomyelitis. Art hrodesis at the first interphalangeal joint with distal osteotomy along the distal 5 smooth corticate d margins. No fracture. Minimal to mild polyarticular osteoarthritis at multiple joints in the mid an d forefoot most prominent at the first metatarsophalangeal and fifth distal interphalangeal joints. S oft tissue swelling in the forefoot most prominent about the first, second and fourth toes. IMPRESSION: 1. Left medicine along the fourth proximal and middle phalanges likely secondary to advanced osteoart hritis at the proximal interphalangeal joint. 2. Additional less advanced osteomyelitis at the tuft of the third distal phalanx. 3. 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 4. Osteotomy along the medial margin of the first distal phalanx without evident ongoing osteolysis a s to suggest osteomyelitis. Reviewed, dictated and finalized at location A. IMPRESSION: 1. 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 2. Additional less advanced osteomyelitis at the tuft of the third distal phala nx. 3. Amputation of the second distal phalanx with osteotomy across the middle pha lanx with smooth margins but without definitive cortication equivocal for early osteomyelitis. 4. Osteotomy along the medial margin of the first distal phalanx without eviden t ongoing osteolysis as to suggest osteomyelitis.
--- OUTSIDE RECORDS SUMMARY | 2025-01-12 10:37 | XMS_ITS | Clinical Summary ---
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 Gender Identity Not on file Sexual Orientation [...] 01/05/2022, 06/12/2021, 07/14/2020, Additional history exists Influenza Vaccine (#1) 2025 , 04/18/2023, 02/28/2023, Additional history exists Pneumococcal vaccine <65 Completed 02/28/2023 Insurance [employer] MEDICARE [facility] Address: [address] [address] [place] [address] Advance Directives For more information, please contact: [phone] Documents on File Type Date Recorded 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
--- OUTSIDE RECORDS SUMMARY | 2025-01-12 10:37 | XMS_ITS | Referral Summary ---
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 Gender Identity Not on file Sexual Orientation [...] Plan of Treatment Not on file Insurance [facility] MEDICARE [facility] Address: [address] [address] [place] [address] Advance Directives For more information, please contact: [phone] Documents on File Type Date Recorded 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
[2025-01-12 10:47] LABS: Hematocrit 37.3 % (40.0-54.0); Hemoglobin 12.0 g/dL (14.0-18.0); Immature Granulocyte Percent A 0.9 % (0.0-0.0); Immature Platelet Fraction Pct 5.6 % (1.0-7.0); Lymphocytes Absolute Auto 1.10 K/mm3 (1.10-4.50); Mean Corpuscular HGB Conc 32.2 g/dL (32-36); Mean Corpuscular Hemoglobin 27.6 pg (27.0-31.0); Mean Corpuscular Volume 85.9 fL (78.0-102.0); Nucleated Red Blood Cells Absolute Auto 0.00 K/mm3 (0.00-0.00); Nucleated Red Blood Cells Perc 0.0 % (0-0.0); Platelet Count Result 105 K/mm3 (150-420); Red Blood Count 4.34 M/mm3 (4.70-6.10); White Blood Count 8.1 K/mm3 (4.8-10.8)
[2025-01-12 11:21] LABS: Alanine Aminotransferase 8 U/L (6-50); Albumin Level 4.0 g/dL (3.5-5.1); Alkaline Phosphatase 85 U/L (38-126); Anion Gap 5 mmol/L (4-12); Aspartate Amino Transferase 19 U/L (17-59); Bilirubin,Total 0.9 mg/dL (0.2-1.3); Blood Urea Nitrogen 15 mg/dL (9-20); CRP 4.8 mg/dL (<1.0); Calcium 7.2 mg/dL (8.4-10.2); Carbon Dioxide 27 mmol/L (22-30); Chloride 104 mmol/L (98-107); Estimated Glomerular Filt Rate > 60; Glucose 170 mg/dL (65-110); Osmolality Calculated 286 mOsm/kg (285-295); Potassium 3.7 mmol/L (3.4-5.0); Sodium 136 mmol/L (137-145); Total Protein 7.0 g/dL (6.3-8.2)
== END 2025-01-12 10:13 | disposition home or self-care (01) ==
LOC: CHSLAB 10:14
PROVIDERS: PCP Family Medicine; Visit Provider Family Medicine
DX: M86.8X7 Other osteomyelitis, ankle and foot (principal); Z89.422 Acquired absence of other left toe(s)
CPT/HCPCS: 36415; 73630; 80053; 85025; 85055; 85652; 86140; 87040

== ENCOUNTER 2025-03-20 11:12 | Emergency (ER) | payer MEDICARE, MEDICAID, SELFPAY ==
--- OUTSIDE RECORDS SUMMARY | 2025-03-20 11:14 | XMS_ITS | Clinical Summary ---
Author Organization [facility] Medical Office Building [address] Address [address] [place] [address] Care Team Providers Care Adult And Pediatric Neurologist Name Role Phone Reggie Jones MD Primary Care Provide r Demarcus Phan DPM Unavailable [phone] Allergies Active Allergy Reactions Criticality Noted Date Comments Sulfamethoxazole-Trimethoprim Hives Medium 2024 Penicillins Hives Medium 08/20/2024 Sulfa Hives Medium 08/20/2024 Medications levothyroxine (SYNTHROID) 200 mcg tablet Take 1 tablet (200 mcg total) by mouth daily 08/03/19 25 Active terbinafine (LamiSIL) 250 mg tablet Take 1 tablet (250 mg total) by mouth daily 08/03/19 25 Active fluticasone propionate (FLONASE) 50 [...] (six) hours as needed (chest congestion) Active polyethylene glycol (MIRALAX) 17 gram packetIndications [...] Take every 1/2-1 Hour as needed Active clindamycin (CLEOCIN) 300 mg capsule Take 1 capsule (300 mg total) by mouth 3 (three) times a day 02/17/20 Active furosemide (LASIX) 20 mg tablet Take 1 tablet (20 mg total) by mouth daily 02/17/20 Active levothyroxine (SYNTHROID) 50 mcg tablet Take 1 tablet (50 mcg total) 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 Active ARIPiprazole (ABILIFY) 10 mg tablet Take 1 tablet (10 mg total) by mouth daily 08/03/19 025 Discontinu ed(Therapy completed) citalopram (CeleXA) 20 mg tablet Take 1 tablet (20 mg total) by mouth daily 08/03/19 025 Discontinu ed(Therapy completed) busPIRone (BUSPAR) 10 mg tablet Take 1 tablet (10 mg total) by mouth 2 (two) times a day 08/03/19 025 Discontinu ed(Therapy completed) UNABLE TO FIND Take 1 each by mouth 4 (four) times a day as needed (cough) Med Name: Soliman Honey Lemon Drops Discontinu ed(Therapy completed) traMADoL (ULTRAM) 50 mg tablet Take 1 tablet (50 mg total) by mouth every 6 (six) hours as needed for pain 28 tablet 09/05/19 025 Discontinu ed(Therapy completed) doxycycline hyclate 100 mg capsule Take 1 tablet/capsule (100 mg total) by mouth 2 (two) times a day 01/01/20 25 025 Discontinu ed(Therapy completed) doxycycline (VIBRAMYCIN) 100 mg capsule Take 1 tablet/capsule (100 mg total) by mouth 2 (two) times a day for 10 days 20 tablet/caps ule 03/08/20 25 025 Active Problems Problem Noted Date Diagnosed Date Diabetic polyneuropathy asso ciated with type 2 diabetes mellitus 02/17/2025 Ulcer of toe of left foot, with fat layer expose d 02/17/2025 Acute osteomyelitis of left ankle or foot 2024 Diabetic foot ulcer with osteomyelitis Encounters Date Type Department Care Team Description 03/08/2025 3:36 PM CDT - 03/08/2025 3:37 PM CDT Emergency [facility] Emergency Department [address] [place] [address] Cellulitis of foot (Primary Dx) Discharge Disposition: Discharge to home or self care 02/26/2025 12:10 PM CDT Anesthesia Event [facility] Operating Room [address] [place] [address] Cierra Bourgeois MD Alexander, Jeffrey Michael, 02/26/2025 11:45 AM CDT - 02/26/2025 12:35 PM CDT Surgery [facility] Operating Room [address] [place] [address] Demarcus Phan DPM AMPUTATION FOURTH TOE [[id number] (CPT )] 02/26/2025 9:58 AM CDT - 02/26/2025 2:45 PM CDT Hospital Encounter [facility] Operating Room [address] [place] [address] Demarcus Phan DPM Acute osteomyelitis of left ankle or foot (HCC); Diabetic polyneuropathy associated with type 2 diabetes mellitus (HCC); Ulcer of toe of left foot, with fat layer exposed (HCC) Discharge Disposition: Discharge to home or self care from Last 3 Months Surgical History Surgery Date Site/Laterality Comments SPINE SURGERY Patients father stated patient had a lumbar back fusion over 20 yrs ago TOE SURGERY Medical History Medical History Date Comments Type 2 diabetes mellitus Anemia Bipolar disorder Personality disorder (HCC) PTSD (post-traumatic stress disorder) Chronic cutaneous venous stasis ulcer (HCC) lower right leg Constipation Hypothyroidism Schizoaffective disorder (HCC) Family History Medical History Relation Name Comments Anemia Father Diabetes Mother Relation Name Status Comments Father Mother Social History Tobacco Use Types Packs/Day Years Used Date Smoking Tobacco: Never Smokeless Tobacco: Never Tobacco Cessation:Counseling Given: Not Answered AUDIT-C Answer Date Recorded Frequency of Alcohol Consumption Not on file 02/19/2025 Q2: How many drinks containi ng alcohol do you have on a typical day when you are drinking? Patient does not drink Q3: How often do you have si x or more drinks on one occasion? Never 02/19/2025 Personal Safety Answer Date Recorded Have you ever been in or are you currently in a harmful physical or emotional relationship or is someone making you feel afraid or unsafe? 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 Gender Identity Not on file Sexual Orientation Not on file Obstetrics History Last Filed Vital Signs Vital Sign Reading Time Taken Comments Blood Pressure 119/88 03/08/2025 2:02 PM CDT Pulse 81 03/08/2025 2:02 PM CDT Temperature 36.8 C (98.2 F) 03/08/2025 2:02 PM CDT Respiratory Rate 18 03/08/2025 11:50 AM CDT Oxygen Saturation 99% 03/08/2025 2:02 PM CDT Inhaled Oxygen Concentration - - Weight 105.8 kg (233 lb 4 oz) 02/26/2025 10:24 A M CDT Height 175.3 cm (5' 9) 02/26/2025 10:24 AM CDT Body Mass Index 34.44 02/26/2025 10:24 AM CDT Plan of Treatment Health Maintenance Due Date Last Done Comments Albumin Creatinine Ratio, Urine 1975 Colon Cancer Screening-Colonoscopy 1975 Depression Screening 1975 Hemoglobin A1C 1975 Hepatitis C Screening 1975 Prostate Cancer Screening-PSA 1975 Dilated Eye Exam 1975 Foot Exam 1975 Lipid Panel 1975 Hepatitis B Screening 1993 Regular Well Visit/Exam 18-64 1993 Covid-19 Vaccine (5 - 2024-2 6 season) 2025 01/05/2022, 06/12/2021, 07/14/2020, Additional history exists Influenza Vaccine (#1) 2025 4, 04/18/2023, 02/28/2023, Additional history exists Zoster Vaccine (1 of 2) 2025 eGFR 03/08/2026 03/08/2025 DTaP/Tdap/Td Vaccine (3 - Td or Tdap) 12/28/2034 12/28/2024, 02/07/2010 Pneumococcal vaccine <65 Completed 02/28/2023 Procedures Procedure Name Priority Date/Time Associated Diagnosis Comments EGFR STAT 03/08/2025 12:38 PM CDT DIFFERENTIAL AUTO STAT 03/08/2025 12:38 PM CDT SEPSIS LACTATE WITH REFLEX STAT 03/08/2025 12:38 PM CDT COMPREHENSIVE METABOLIC PANEL STAT 03/08/2025 12:38 PM CDT CBC WITH AUTO DIFFERENTIAL STAT 03/08/2025 12:38 PM CDT XR FOOT LEFT 3 OR MORE VIEWS ED 03/08/2025 12:25 PM CDT SURGICAL PATHOLOGY Routine 02/26/2025 2: 17 PM CDT Acute osteomyelitis of left ankle or foot (HCC) Diabetic polyneuropathy associated with type 2 diabetes mellitus (HCC) Ulcer of toe of left foot, with fat layer exposed (HCC) POCT GLUCOSE DEVICE Routine 02/26/2025 1 :04 PM CDT TISSUE AEROBIC AND ANAEROBIC CULTURE AND GRAM STAIN Routine 02/26/2025 12:40 PM CDT IA AN ELECTIVE SUPRAGLOTTIC AIRWAY Routine 02/26/2025 12:19 PM CDT IA DEBRIDEMENT SUBCUTANEOUS TISSUE 1ST 20 SQ CM/< 02/26/2025 12:10 PM CDT Acute osteomyelitis of left ankle or foot (HCC) Diabetic polyneuropathy associated with type 2 diabetes mellitus (HCC) Ulcer of toe of left foot, with fat layer exposed (HCC) IA AMPUTATION TOE METATARSOPHALANGEAL JOINT 02/26/2025 12:10 PM CDT Acute osteomyelitis of left ankle or foot (HCC) Diabetic polyneuropathy associated with type 2 diabetes mellitus (HCC) Ulcer of toe of left foot, with fat layer exposed (HCC) POTASSIUM, WHOLE BLOOD STAT 10:38 AM CDT POCT GLUCOSE DEVICE Routine 02/26/2025 10:36 AM CDT from Last 3 Months Results * Sepsis Lactate w/ Reflex (03/08/2025 12:38 PM CDT) Sepsis Lactate 1.7 0.7 - 2.0 mmol/L Blood 03/08/2025 12:3 8 PM CDT 03/08/2025 12:42 PM CDT us Dayanna Winchester NP LAB BLOOD ORDERABLES Final Result [facility] ([place]) 1 [facility] [place] [address] * eGFR (03/08/2025 12:38 PM CDT) eGFR >90 >=60 mL/min/1. 73 m2 Comment: Interpretive Data Reference Interval Normal >/= 90 mL/min/1.73m2 Mildly decreased* 60 - 89 mL/min/1.73m2 Mildly to moderately decreased 45 - 59 mL/min/1.73m2 Moderately to severely decreased 30 - 44 mL/min/1.73m2 Severely decreased 15 - 29 mL/min/1.73m2 Kidney Failure < 15 mL/min/1.73m2 *Relative to young adult level Estimated glomerular filtration rate is determined by the 2020 CKD-EPI equation recommended by the National Kidney Foundation (A Unifying Approach to GFR Estimation: Recommendations of the NKF-ASK Task Force on Reassessing the Inclusion of Race in Diagnosing Kidney Disease, JASN 202). The CKD-EPI equation should not be used for patients with unstable renal function and has not been validated in children and those over 70. Current interpretive data was last reviewed 2021. Blood 03/08/2025 12:3 8 PM CDT 03/08/2025 12:42 PM CDT us Dayanna Marte Ranulfo STONER LAB BLOOD ORDERABLES Final Result [facility] ([place]) 1 [facility] [place] [address] * (ABNORMAL) Differential, auto (03/08/2025 12:38 PM CDT) Neutrophil abs 6.37 1.50 - 6.50 K/cumm Imm gran abs 0.02 0.00 - 0.10 K/cumm [facility] ([place]) Lymphocyte abs 0.71(L) 0.80 - 3.30 K/cumm [facility] ([place]) Monocyte abs 0.47 0.20 - 0.80 K/cumm [facility] ([place]) Eosinophil abs 0.00 0.00 - 0.50 K/cumm [facility] ([place]) Basophil abs 0.00 0.00 - 0.10 K/cumm [facility] ([place]) Neutrophil pct 84.1 % [facility] ([place]) Comment: Interpretive Data Percent cell count reference ranges are not reported, since discordance with absolute values may lead to misinterpretation of CBC data. Current Interpretive Data was last revised on 2017. Imm gran pct 0.3 % [facility] ([place]) Comment: Interpretive Data Percent cell count reference ranges are not reported, since discordance with absolute values may lead to misinterpretation of CBC data. Current Interpretive Data was last revised on 2017. Lymphocyte pct 9.4 % [facility] ([place]) Comment: Interpretive Data Percent cell count reference ranges are not reported, since discordance with absolute values may lead to misinterpretation of CBC data. Current Interpretive Data was last revised on 2017. Monocyte pct 6.2 % [facility] ([place]) Comment: Interpretive Data Percent cell count reference ranges are not reported, since discordance with absolute values may lead to misinterpretation of CBC data. Current Interpretive Data was last revised on 2017. Eosinophil pct 0.0 % [facility] ([place]) Comment: Interpretive Data Percent cell count reference ranges are not reported, since discordance with absolute values may lead to misinterpretation of CBC data. Current Interpretive Data was last revised on 2017. Basophil pct 0.0 % [facility] ([place]) Comment: Interpretive Data Percent cell count reference ranges are not reported, since discordance with absolute values may lead to misinterpretation of CBC data. Current Interpretive Data was last revised on 2017. Blood 03/08/2025 12:3 8 PM CDT 03/08/2025 12:42 PM CDT us Dayanna Winchester NP LAB BLOOD ORDERABLES Final Result [facility] ([place]) 1 [facility] Department of Laboratories [place], [place] [id number] * (ABNORMAL) CBC with auto differential (03/08/2025 12:38 PM CDT) WBC 7.57 3.80 - 9.90 K/cumm Hgb 11.2(L) 13.0 - 17.5 g/dL [facility]) Hct 35.3(L) 38.9 - 50.3 % [facility]) Plt 163 150 - 400 K/cumm [facility] ([place]) MPV 13.0(H) 9.1 - 12.3 fL [facility] ([place]) RBC 4.18(L) 4.30 - 5.80 M/cumm [facility] ([place]) MCV 84.4 81.3 - 96.4 fL [facility] MCH 26.8(L) 27.1 - 33.3 pg [facility]) MCHC 31.7(L) 32.3 - 35.7 g/dL [facility]) RDW CV 14.9 11.1 - 14.9 % [facility]) RDW SD 45.6 35.7 - 48.1 fL [facility]) NRBC abs 0.00 0.00 - 0.01 K/cumm [facility] ([place]) Blood 03/08/2025 12:3 8 PM CDT 03/08/2025 12:42 PM CDT us Dayanna Winchester NP LAB BLOOD ORDERABLES Final Result [facility] ([place] 1 [facility] [place] [address] * (ABNORMAL) Comprehensive metabolic panel (03/08/2025 12:38 PM CDT) Sodium 137 135 - 145 mmol/L [facility]) Potassium, pl 4.0 3.3 - 4.9 mmol/L [facility]) Chloride 100 97 - 110 mmol/L [facility]) CO2 24 22 - 32 mmol/L [facility]) Anion gap 13 2 - 15 mmol/L [facility]) BUN 11 6 - 25 mg/dL [facility]) Creatinine 0.91 0.80 - 1.30 mg/dL [facility]) Glucose 251(H) 70 - 199 mg/dL [facility] ([place]) Comment: Interpretive Data Fasting glucose >/= 126 mg/dl is diagnostic for diabetes. Fasting is defined as no caloric intake for at least 8 hours. Fasting glucose between 100 mg/dl to 125 mg/dl is diagnostic of prediabetes. In a patient with classic symptoms of hyperglycemia or hyperglycemic crisis, a random glucose >/= 200 mg/dl is diagnostic for diabetes. In the absence of unequivocal hyperglycemia, results should be confirmed by repeat testing. The classification and Diagnosis of Diabetes Diabetes Care 2021; 46: S19-S40. Current interpretive data was last revised 2022. Calcium 7.4(L) 8.5 - 10.3 mg/dL [facility]) Bilirubin, total 0.5 0.1 - 1.2 mg/dL [facility] ([place]) Protein, pl 7.3 6.5 - 8.5 g/dL [facility]) Albumin 3.2(L) 3.5 - 5.0 g/dL [facility]) Alk phos 78 40 - 130 Units/L [facility]) ALT 16 7 - 55 Units/L [facility] ([place]) Comment:Hemolysis present. R esults may be affected. AST 28 10 - 50 Units/L [facility] ([place]) Comment:Hemolysis present. R esults may be affected. Blood 03/08/2025 12:3 8 PM CDT 03/08/2025 12:42 PM CDT Dayanna Winchester NP LAB BLOOD ORDERABLES Final Result [facility] ([place]) 1 [facility] [place] [address] * XR Foot Left 3 or More Views (03/08/2025 12:25 PM CDT) Anatomical Region Laterality Modality Lower Extremities, Foot Left Computed Radiography 03/08/2025 1:02 PM CDT Narrative 03/08/2025 1:08 PM CDT EXAM DESCRIPTION: XR FOOT LEFT 3 OR MORE VIEWS REASON FOR STUDY: Recent amputation/increased swelling Pt he had 2 toes amputated 10 days ago to his left foot. Pt reports increased swelling and pain from his left calf to his toes for the past week. diabetic TECHNIQUE: There are 3 radiographic view(s) of the left foot . COMPARISON: No prior. FINDINGS: Patient demonstrates prior amputation of the 2nd toe distal to the mid shaft of the middle phalanx. Patient demonstrates amputation of the phalanges of the 4th toe. No acute fracture. There is osseous bridging/ankylosis of the interphalangeal joint of the great toe. There is lucency along the lateral head of the 4th metatarsal. This may reflect an erosion. If the 4th toe is recently amputated, findings may reflect osteomyelitis. Correlate with any prior films. Minimal lucency medial head. Diffuse soft tissue swelling of the forefoot. IMPRESSION: 1. There is lucency along the lateral head of the 4th metatarsal. This may reflect an erosion. If the 4th toe is recently amputated, findings may reflect osteomyelitis. Correlate with any prior films. Minimal lucency medial head of the 4th metatarsal. Consider MRI for evaluation of osteomyelitis. 2. Prior amputation of the phalanges of the 4th toe. 3. Diffuse soft tissue swelling of the forefoot. 4. Prior amputation of the 2nd toe distal to the mid shaft of the middle phalanx. THIS IS AN ELECTRONICALLY VERIFIED FINAL REPORT 03/08/2025 1:08 PM - Electronically signed by Federico PONCE Report ID: [id number] Reading Location: [id number] Procedure Note Federico Nielsen MD - 03/08/2025 EXAM DESCRIPTION: XR FOOT LEFT 3 OR MORE VIEWS REASON FOR STUDY: Recent amputation/increased swelling Pt he had 2 toes amputated 10 days ago to his left foot. Pt reportsincreased swelling and pain from his left calf to his toes for the past week.diabetic TECHNIQUE: There are 3 radiographic view(s) of the left foot . COMPARISON: No prior. FINDINGS: Patient demonstrates prior amputation of the 2nd toe distal to the midshaft of the middle phalanx. Patient demonstrates amputation of the phalanges of the 4th toe. No acute fracture. There is osseous bridging/ankylosis of theinterphalangeal joint of the great toe. There is lucency along the lateral head of the 4th metatarsal. This may reflect an erosion. If the 4th toe is recently amputated, findings may reflect osteomyelitis. Correlate with any prior films. Minimal lucency medial head. Diffuse soft tissue swelling of the forefoot. IMPRESSION: 1. There is lucency along the lateral head of the 4th metatarsal. Thismay reflect an erosion. If the 4th toe is recently amputated, findings mayreflect osteomyelitis. Correlate with any prior films. Minimal lucency medial headof the 4th metatarsal. Consider MRI for evaluation of osteomyelitis. 2. Prior amputation of the phalanges of the 4th toe. 3. Diffuse soft tissue swelling of the forefoot. 4. Prior amputation of the 2nd toe distal to the mid shaft of the middle phalanx. THIS IS AN ELECTRONICALLY VERIFIED FINAL REPORT 03/08/2025 1:08 PM - Electronically signed by Federico PONCE Report ID: [id number] Reading Location: [id number] Dayanna Halejimipatrick [facility] IMG XR PROCEDURES Fi nal Result * Surgical pathology (02/26/2025 2:17 PM CDT) Tissue (Amputation non-tramatic) 02/26/2025 12:38 PM CDT Narrative PATHOLOGY [facility] ([place]) - 03/02/2025 2:34 PM CDT EPIC results best viewed via link to PDF [facility] Department of Pathology [address] [place] [address] Note to Patients: This report may contain a detailed description of human tissue sent by a health care provider to the laboratory for pathologic evaluation. The content of this report is essential for diagnosis and may provide important critical findings. This information may be unfamiliar to patients to review without a medical professional present. It is advised that the patient review this report in the presence of a health care provider who can answer questions and explain the details. Final Report Patient Name: ELÍAS KNIGHT Address: [address] [place] [address] Gender: M : 1975 (Age: 50) Service: Surgery [facility] Hospital #: [id number] Patient Type: [facility] Taken: 02/26/2025 Received: 02/26/2025 Accessioned: 02/26/2025 Reported: 03/02/2025 Physician(s):Dr. Demarcus Phan Diagnosis: A. Left lower extremity, fourth digit, amputation- Cutaneous ulceration with underlying acute and chronic inflammation Underlying bone with chronic osteomyelitis Viable bone and skin/soft tissue margins Kalyani Murray M.D. Report Electronically Reviewed and Signed Out By Kalyani Murray M.D. 03/02/2025 14:34:17 Specimen(s) Received: A: Left fourth toe Microscopic Description: Microscopic examination corroborates the diagnosis. Clinical History: Acute osteomyelitis of left ankle or foot. Diabetic polyneuropathy associated with type 2 diabetes mellitus. Ulcer of toe of left foot with fat layer exposed. Amputation fourth toe, debridement diabetic foot ulcer. Gross Description: The specimen is submitted in a single formalin filled container labeled ELÍAS KNIGHT and left fourth toe. It is a recognizable toe, 4.2 cm in length by 2.3 cm in diameter. The nail is present. The toe appears somewhat edematous. An irregular area of ulceration is present, 0.7 x 0.6 cm, 0.6 cm from the skin margin of resection. The underlying bone cuts with ease. The skin at the margin is grossly viable appearing. Sections A1-skin and bone at the margin; A2 ulceration with underlying bone, submitted following decalcification. Kavon Howard/Katerina Coleman M.D. REPORT IMAGES AND SCANNED DOCUMENTS, IF INCLUDED, ONLY VIEWABLE IN PDF VERSION OF REPORT The performance characteristics of some immunohistochemical stains, fluorescence in-situ hybridization tests and immunophenotyping by flow cytometry cited in this report (if any) were determined by the Surgical Pathology Department at [facility] as part of an ongoing quality audit representative program and in compliance with federally mandated regulations drawn from the Clinical Laboratory Improvement Act of 1988 (CLIA '88). Some of these tests rely on the use of analyte specific reagents and are subject to specific labeling requirements by the US Food and Drug Administration. Such diagnostic tests may only be performed in a facility that is certified by the Department of Health and Human Services as a high complexity laboratory under CLIA '88. The FDA has determined that such clearance or approval is not necessary. This test is used for clinical purposes. It should not be regarded as investigational or for research. Nevertheless, federal rules concerning the medical use of analyte specific reagents require that the following disclaimer be attached to the report: This test was developed and its performance characteristics determined by the Surgical Pathology Department [facility]. It has not been cleared or approved by the U. S. Food and Drug Administration. Note for decalcified specimens: This assay has not been validated on decalcified tissues. Results should be interpreted with caution given the possibility of false negativity on decalcified specimens Demarcus Phan DPM LAB PATHOLOGY ORDERABLES Final Result [facility] ([place]) [address] [place] [address] * POCT glucose (02/26/2025 1:04 PM CDT) Glucose, POC 125 70 - 199 mg/dL Blood 02/26/2025 1:04 PM CDT 02/26/2025 1:04 PM CDT Demarcus GordonVandana Phan DPM LAB POCT ORDERABLES - DEVICE F inal Result [facility] ([place]) [address] [place] [address] Department [place] [address] * (ABNORMAL) Tissue aerobic and anaerobic culture and gram stain Bone Toe, fourth, left (02/26/2025 12:40 PM CDT) Pathologist [facility] Direct Specimen Exam Stain: No polymorphonuclear leukocytes seen. No organisms seen. Comment:Testing performed by : [facility], [address] [place] [address]., [id number] Report Final Report: Few Mixed microorganisms. Includes the following: Few Staphylococcus aureus Methicillin resistant (MRSA) by penicillin binding protein 2a (PBP2a) testing. (.) [facility] ([place]) Comment:Testing performed by : [facility], [address] [place] [address]., [id number] Organism STAPHYLOCOCCUS AUREUS [facility] ([place]) Organism MIXED MICROORGANISMS. [facility] ([place]) Bone (Toe, fourth, left) 02/26/2025 12:40 PM CDT 02/26/2025 4:41 PM CDT Narrative [facility] ([place]) - 03/05/2025 3:00 PM CDT Testing performed by [facility] ([phone]) Specimens submitted from normally sterile body sites will have all bacterial morphotypes identified. Specimens that contain grossly mixed bryce and/or are from body sites that are not normally sterile will be examined for Staphylococcus aureus, Pseudomonas aeruginosa, beta-hemolytic strep, vancomycin-resistant Enterococcus, Bacteroides, Parabacteroides, Clostridium perfringens and fungus. If any of these are isolated, the organism will be reported. Current interpretive data was last revised on 2019. Organism Antibiotic Method Susceptibility Staphylococcus aureus Daptomycin (EBER) (EBER) INTERPRET ATION Susceptible Staphylococcus aureus Ceftaroline (EBER) INTERPRETATIO N Susceptible Staphylococcus aureus Doxycycline (EBER) INTERPRETATIO N Intermediate Staphylococcus aureus Linezolid (EBER) INTERPRETATIO N Susceptible Staphylococcus aureus Trimethoprim with Sulfamethoxazole (EBER) INTERPRETATION Susceptible Staphylococcus aureus Clindamycin (EBER) INTERPRETATIO N Resistant Staphylococcus aureus Erythromycin (EBER) INTERPRETATIO N Resistant Staphylococcus aureus Vancomycin (EBER) INTERPRETATIO N Susceptible Staphylococcus aureus Oxacillin (EBER) INTERPRETATIO N Resistant Staphylococcus aureus Cefazolin (EBER) INTERPRETATIO N Resistant Staphylococcus aureus Ceftriaxone (EBER) INTERPRETATIO N Resistant us Demarcus Phan DPM LAB MICROBIOLOGY - GENERAL ORD ERABLES Final Result [facility] [place]) 1 [facility] [place] [address] * IA AN ELECTIVE SUPRAGLOTTIC AIRWAY (02/26/2025 12:19 PM CDT) Narrative Sabas Mei CRNA - 02/26/2025 12:19 PM CDT Sabas Mei CRNA 02/26/2025 12:19 PM Airway Patient location: OR Urgency: elective Indications for airway management: anesthesia Difficult airway: no Staff: Placed by: PRESCRIPTION CLERK LENSES: Sabas Mei CRNA Emergent airway documentation: Risks and benefits discussed: yes Consent obtained: yes Consent given by: patient Airway prep: Preoxygenated: yes Patient position: sniffing Mask difficulty assessment: 0 - not attempted Sedation level during airway: GA Final airway details: Final airway type: supraglottic airway Final supraglottic airway: unique SGA size: 4 Number of attempts: 1 Ventilation between attempts: none Additional comments: Atraumatic LMA placement. us Cierra Bourgeois MD ANESTHESIA ORDERABLES Fi nal Result * Potassium, whole blood (02/26/2025 10:38 AM CDT) Potassium, bld 3.7 3.3 - 4.9 mmol/L Comment: Interpretive Data This method is not able to assess for hemolysis, which may falsely increase potassium concentrations. If further testing is needed to evaluate this result, consider in-laboratory plasma potassium. Current Interpretive Data was last revised on 2022. Blood 02/26/2025 10:3 8 AM CDT 02/26/2025 10:40 AM CDT us Cierra Bourgeois MD LAB BLOOD ORDERABLES Fin al Result [facility] ([place]) [facility] [place] [address] * POCT glucose (02/26/2025 10:36 AM CDT) Glucose, POC 132 70 - 199 mg/dL Blood 02/26/2025 10:3 6 AM CDT 02/26/2025 10:36 AM CDT us Demarcus MCINTOSHM LAB POCT ORDERABLES - DEVICE F inal Result Performing Organization Address City/[facility] Co de Phone Number DEVENDRA DESOUZA ([place]) 1 [facility] [place] [address] from Last 3 Months Insurance [facility] MEDICARE Advance Directives For more information, please contact: [phone] Documents on File Type Date Recorded 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
--- OUTSIDE RECORDS SUMMARY | 2025-03-20 11:14 | XMS_ITS | Clinical Summary ---
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 Sex Male 8:01 AM CDT Gender [...] Tdap) 02/08/2020 02/07/2010 COVID-19 Vaccine ( season) 2025 01/05/2022, 06/12/2021, 07/14/2020, Additional history exists Zoster Vaccines (1 of 2) 2025 Influenza Adult (#1) 2025 04/18/2023, 02/28/2023, 03/10/2021, Additional history exists Pneumococcal Vaccine: 50+ Years Completed 02/28/2023 Meningococcal B Vaccine Aged Out No l onger eligible based on patient's age to complete this topic Meningococcal Vaccine Aged Out No keena hardeep eligible based on patient's age to complete this topic RSV Immunizations Under 20 Months Aged Out No longer eligible based on patient's age to complete this topic Insurance MEDICARE MEDICAID Care Teams Head Strength And Conditioning Coach Relationship Specialty Start Date End Date Alex Andino MD [address] [place] [id number] PCP - General FAMILY PRACTICE 09/02/23
[2025-03-20 11:20] VITALS: BP 123/82; PULSE 80; RESP 18; TEMP 37.1; O2SAT 100
[2025-03-20] MEDS: methylPREDNISolone ACETATE 40 MG/ML VIAL 80 MG IM (11:54)
[2025-03-20 11:58] LABS: Hematocrit 36.0 % (40.0-54.0); Hemoglobin 11.0 g/dL (14.0-18.0); Immature Granulocyte Percent A 0.6 % (0.0-0.0); Lymphocytes Absolute Auto 1.07 K/mm3 (1.10-4.50); Mean Corpuscular HGB Conc 30.6 g/dL (32-36); Mean Corpuscular Hemoglobin 26.1 pg (27.0-31.0); Mean Corpuscular Volume 85.3 fL (78.0-102.0); Nucleated Red Blood Cells Absolute Auto 0.00 K/mm3 (0.00-0.00); Nucleated Red Blood Cells Perc 0.0 % (0-0.0); Platelet Count Result 168 K/mm3 (150-420); Red Blood Count 4.22 M/mm3 (4.70-6.10); White Blood Count 6.7 K/mm3 (4.8-10.8)
[2025-03-20 12:12] LABS: Alanine Aminotransferase 12 U/L (6-50); Albumin Level 3.9 g/dL (3.5-5.1); Alkaline Phosphatase 88 U/L (38-126); Anion Gap 9 mmol/L (4-12); Aspartate Amino Transferase 23 U/L (17-59); Bilirubin,Total 0.7 mg/dL (0.2-1.3); Blood Urea Nitrogen 12 mg/dL (9-20); Calcium 7.9 mg/dL (8.4-10.2); Carbon Dioxide 31 mmol/L (22-30); Chloride 100 mmol/L (98-107); Estimated CRCL calculation 86 ml/min; Estimated Glomerular Filt Rate > 60; Glucose 162 mg/dL (65-110); Osmolality Calculated 293 mOsm/kg (285-295); Potassium 4.0 mmol/L (3.4-5.0); Sodium 140 mmol/L (137-145); Total Protein 9.4 g/dL (6.3-8.2)
--- NOTE | 2025-03-20 12:22 | PC.NURSE ---
On 03/20/25, the student, [cristina jackson ], provided care and completed [facility] on [facility] patient. I have reviewed the student's documentation and agree with the findings.
--- NOTE | 2025-03-20 12:45 | ED.SKABFB ---
HPI - Skin/Abscess/Foreign Bdy General Chief complaint: Skin/Abscess/Foreign Body Stated complaint: rash 3 days Source: patient and EMS Mode of arrival: EMS Limitations: no limitations History of Present Illness HPI narrative: this is a 50-year-old male from [facility] facility that presents via EMS with lesions on his lower extremities appears like upper per non itchy nonraised no fever chills does have a small wound on his right lower extremity with surrounding erythema has been on doxycycline and finish the dose of doxycycline but after 2nd or 3rd dose started developing this rash. There is no shortness of breath no audible wheezing no fever chills no nose bleeds no bleeding from the gums no chest pain no nausea vomiting or abdominal pain. MD complaint: abscess/boil and discoloration Onset (ago): day(s) Location: LLE and RLE Severity: mild Related Data Home Medications ?Medication ?Instructions ?Recorded ?Confirmed ?Last Taken ?Type acetaminophen 325 mg tablet 325 mg PO PRN PRN fever or pain 12/28/24 12/28/24 12/18/24 History diphenhydramine HCl 25 mg capsule 25 mg PO Q6H PRN itching 12/28/24 12/28/24 12/27/24 History (Banophen) ferrous sulfate 325 mg (65 mg 325 mg PO DAILY 12/28/24 12/28/24 12/28/24 History iron) tablet (FeroSul) fluticasone propionate 50 1 spray intranasal BID 12/28/24 12/28/24 12/28/24 History mcg/actuation nasal spray,suspension furosemide 20 mg tablet 20 mg PO DAILY 12/28/24 12/28/24 12/28/24 History levothyroxine 200 mcg tablet 250 mcg PO DAILY@0630 12/28/24 12/28/24 12/28/24 History terbinafine HCl 250 mg tablet 250 mg PO DAILY 12/28/24 12/28/24 12/28/24 History Allergies Allergy/AdvReac Type Severity Reaction Status Date / Time bee venom protein (honey bee) Allergy Unknown Verified 03/20/25 11:48 Penicillins Allergy Unknown Verified 03/20/25 11:48 Sulfa (Sulfonamide Allergy Unknown Verified 03/20/25 11:48 Antibiotics) sulfamethoxazole (From Allergy Unknown Verified 03/20/25 11:48 Bactrim) trimethoprim (From Bactrim) Allergy Unknown Verified 03/20/25 11:48 Review of Systems Review of Systems: All systems reviewed & are unremarkable except as noted in HPI and below PMFSH Past Medical History Medical History Thrombocytopenia Hypothyroidism Diet-controlled type 2 diabetes mellitus Posttraumatic stress disorder Personality disorder Bipolar 1 disorder Surgical History Surgical History History of amputation of left second toe Social History Social History Social History: Surrogate medical decision maker: Rojelio Rondon, father. Code status: Full code. Smoking status: Never smoker Alcohol intake: never Substance use: never Substance use type: does not use Do You Feel Safe in your Home?: Yes Lack of Transportation: No Lack of Food: Never True Current Housing: I Have Housing Concerned About Future Housing: No Difficulty Paying Gas/Electric Bills: No Difficulty Paying for Meds: No Currently Unemployed: No Education: Don't Know Difficulty w/ Childcare or Family Care: No Spiritual care concerns: No Exam Const: General: healthy appearing, no acute distress and alert Nutritional Appearance: well nourished HENMT: Head: normal to inspection Neck: Neck: normal visual inspection and no lymphadenopathy Chest: Chest palpation & inspection: normal inspection of the chest Resp: Effort & Inspection: normal respiratory effort Auscultation: clear to auscultation bilaterally Cardio: Rate: regular rate Rhythm: regular rhythm GI: GI Palp: Yes Soft to palpation Auscultation: normal bowel sounds Skin: General skin exam: normal color Other: Rash on his bilateral lower extremities purpuric in nature with nonraised non itchy Has a small area of scab with area of erythema orders right lower extremity. With no oozing no bleeding. Neuro: General: moves all extremities Course Course Emergency Course: Medical decision making narrative: Patient was evaluated by myself in the emergency department. History obtained from the patient was independent historian and physical exam performed and witnessed by a nurse. External medical records were reviewed at this time. Patient received treatment in the ER with a Depo-Medrol 80mg IM along with Benadryl. Patient had labs including a CBC and CMP which were unremarkable. Repeat assessment: Patient is sitting at the bedside eating lunch doing well on repeat exam with no acute distress Symptoms improved since arrival to the ED. Repeat vitals are stable Patient agrees with discussion and after shared medical decision making and agrees with discharge. All questions answered to patient's satisfaction. Unit advised follow-up with his primary care within 3 to 5 days. Vital Signs Vital signs: Vital Signs Temperature 37.1 C 03/20/25 11:20 Pulse Rate 80 03/20/25 11:20 Respiratory Rate 18 03/20/25 11:20 Blood Pressure 123/82 03/20/25 11:20 Pulse Oximetry 100 03/20/25 11:20 Oxygen Delivery Room Air 03/20/25 11:20 Temperature 37.1 C 03/20/25 11:20 Pulse Rate 80 03/20/25 11:20 Respiratory Rate 18 03/20/25 11:20 Blood Pressure 123/82 03/20/25 11:20 Pulse Oximetry 100 03/20/25 11:20 Oxygen Delivery Room Air 03/20/25 11:20 MDM - Skin/Abscess/Foreign Bdy Lab Data 03/20/25 11:50 03/20/25 11:50 Labs: Lab Results 03/20/25 Range/Units 11:50 WBC 6.7 (4.8-10.8) K/mm3 RBC 4.22 L (4.70-6.10) M/mm3 Hgb 11.0 L (14.0-18.0) g/dL Hct 36.0 L (40.0-54.0) % MCV 85.3 (78.0-102.0) fL MCH 26.1 L (27.0-31.0) pg MCHC 30.6 L (32-36) g/dL RDW 15.4 H (11.6-14.4) % Plt Count 168 (150-420) K/mm3 MPV 10.3 (8.7-11.0) fl Immature Gran % (Auto) 0.6 H (0.0-0.0) % Neut % (Auto) 78.2 H (50.0-70.0) % Lymph % (Auto) 16.0 L (18.0-42.0) % Elbert % (Auto) 5.2 (2.0-11.0) % Eos % (Auto) 0.0 L (1.0-6.0) % Baso % (Auto) 0.0 (0.0-1.0) % Lymph # (Auto) 1.07 L (1.10-4.50) K/mm3 Elbert # (Auto) 0.35 (0.10-0.90) K/mm3 Eos # (Auto) 0.00 L (0.02-0.50) K/mm3 Baso # (Auto) 0.00 (0.00-0.10) K/mm3 Abs Immat Gran (auto) 0.04 H (0.00-0.00) K/mm3 Absolute Neuts (auto) 5.23 (1.70-7.20) K/mm3 Absolute Nucleated RBC 0.00 (0.00-0.00) K/mm3 Nucleated RBC % 0.0 (0-0.0) % Sodium 140 (137-145) mmol/L Potassium 4.0 (3.4-5.0) mmol/L Chloride 100 (98-107) mmol/L Carbon Dioxide 31 H (22-30) mmol/L Anion Gap 9 (4-12) mmol/L BUN 12 (9-20) mg/dL Creatinine 1.10 (0.7-1.3) mg/dL Estim Creat Clear Calc 86 ml/min Estimated GFR > 60 (59 - ) Glucose 162 H (65-110) mg/dL Calculated Osmolality 293 (285-295) mOsm/kg Calcium 7.9 L (8.4-10.2) mg/dL Total Bilirubin 0.7 (0.2-1.3) mg/dL AST 23 (17-59) U/L ALT 12 (6-50) U/L Alkaline Phosphatase 88 (38-126) U/L Total Protein 9.4 H (6.3-8.2) g/dL Albumin 3.9 (3.5-5.1) g/dL Critical Care Time Critical Care Time Critical Care Time: No Discharge Plan Discharge Clinical Impression: Allergic reaction caused by a drug Qualifiers: Encounter type: initial encounter Qualified Code(s): T78.40XA - Allergy, unspecified, initial encounter Cellulitis Qualifiers: Site of cellulitis: extremity Site of cellulitis of extremity: lower extremity Laterality: right Qualified Code(s): L03.115 - Cellulitis of right lower limb 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 Patient Language: Bahraini Prescriptions: New levofloxacin 500 mg tablet 500 mg PO DAILY Qty: 7 0RF prednisone 20 mg tablet 20 mg PO DAILY Qty: 7 0RF No Action levothyroxine 200 mcg tablet 250 mcg PO DAILY@0630 ferrous sulfate [FeroSul] 325 mg (65 mg iron) tablet 325 mg PO DAILY furosemide 20 mg tablet 20 mg PO DAILY terbinafine HCl 250 mg tablet 250 mg PO DAILY fluticasone propionate 50 mcg/actuation spray,suspension 1 spray INTRANASAL BID acetaminophen 325 mg tablet 325 mg PO PRN PRN (Reason: fever or pain) diphenhydramine HCl [Banophen] 25 mg capsule 25 mg PO Q6H PRN (Reason: itching) Follow-up/Referrals: Reggie Jones MD [Primary Care Provider, Internal Medicine] Time of Disposition: 12:52
[2025-03-22 09:58] LABS: Hemoglobin A1C 7.1 % (<5.7)
== END 2025-03-20 13:11 | disposition home or self-care (01) ==
PROVIDERS: Emergency Provider Emergency Medicine; PCP Family Medicine
DX: T78.40XA Allergy, unspecified, initial encounter (principal); L03.115 Cellulitis of right lower limb; E03.9 Hypothyroidism, unspecified; E11.9 Type 2 diabetes mellitus without complications
CPT/HCPCS: 36415; 80053; 83036; 85025; 96372; 99284; J1010; J1200